=== PATIENT | female | born 1970 | race Caucasian/White ===

== ENCOUNTER 2020-10-07 11:54 | Outpatient (REF) | payer OTHER, SELFPAY ==
--- NOTE | 2020-10-07 12:08 | XR_ITS ---
EXAMINATION: XR ELBOW, RIGHT XR ELBOW, LEFT CLINICAL INFORMATION: Medial epicondylitis COMPARISON: None TECHNIQUE: 3 views of each elbow FINDINGS: Right elbow: No fracture or dislocation. Alignment is anatomic. Joint spaces are maintained. No elbow joint effusion. The soft tissues are unremarkable. Left elbow: No fracture or dislocation. Alignment is anatomic. Joint spaces are maintained. No elbow joint effusion. The soft tissues are unremarkable. XR/XR elbow RT 2V IMPRESSION: Normal appearance of both elbows.
--- NOTE | 2020-10-07 12:08 | XR_ITS ---
EXAMINATION: XR LUMBOSACRAL SPINE CLINICAL INFORMATION: Lower back pain COMPARISON: None TECHNIQUE: Three views of the lumbosacral spine. FINDINGS: No fracture or subluxation. Vertebral body height and alignment is maintained. Disc spaces are maintained. Mild facet arthropathy at the lower lumbar spine. The sacroiliac joints are symmetric. The visualized sacrum is intact. The visualized bowel gas pattern is unremarkable. XR/XR lumbar spine 2-3V IMPRESSION: Mild facet arthropathy at the lower lumbar spine. Otherwise normal appearance of the lumbar spine.
--- NOTE | 2020-10-07 12:08 | XR_ITS ---
EXAMINATION: XR ELBOW, RIGHT XR ELBOW, LEFT CLINICAL INFORMATION: Medial epicondylitis COMPARISON: None TECHNIQUE: 3 views of each elbow FINDINGS: Right elbow: No fracture or dislocation. Alignment is anatomic. Joint spaces are maintained. No elbow joint effusion. The soft tissues are unremarkable. Left elbow: No fracture or dislocation. Alignment is anatomic. Joint spaces are maintained. No elbow joint effusion. The soft tissues are unremarkable. XR/XR elbow LT 2V IMPRESSION: Normal appearance of both elbows.
[2020-10-07 12:40] LABS: Hematocrit 28.1 % (37-47); Red Cell Distribution Width 21.8 % (11.0-16.0)
[2020-10-07 12:42] LABS: Hemoglobin 7.4 g/dl (12.0-16.0); Mean Corpuscular HGB Conc 26.3 g/dl (31.0-35.0); Mean Corpuscular Hemoglobin 14.9 pg (27.0-33.0); Platelet Count 249 X10*3/uL (160-400); Red Blood Count 4.97 X10*6/uL (4.20-5.50)
[2020-10-07 12:56] LABS: Mean Corpuscular Volume 56.5 fL (80-98); PLT ABN DIST 1
[2020-10-07 13:15] LABS: Alanine Aminotransferase 13 U/L (0-31); Albumin Level 4.1 g/dL (3.5-5.0); Alkaline Phosphatase 90 U/L (39-117); Anion Gap 15 (12-20); Aspartate Amino Transferase 18 U/L (5-31); Bilirubin Total 0.6 mg/dL (0.0-1.0); Blood Urea Nitrogen 11 mg/dL (9-16); Calcium 8.9 mg/dL (8.4-10.2); Carbon Dioxide 23 mmol/L (22-29); Chloride 106 mmol/L (96-108); Cholesterol 169 mg/dL; Estimated Glomerular Filt Rate > 60; Glucose Fasting 126 mg/dL (60-99); HDL Cholesterol 49 mg/dL; LDL Cholesterol Calculated 103 mg/dl; Potassium 4.2 mmol/l (3.3-5.1); Sodium 140 mmol/L (135-145); Total Protein 7.3 g/dL (6.5-8.0); Triglycerides 87 mg/dL
[2020-10-07 13:36] LABS: TSH reflex Free T4 0.86 mIU/mL (0.32-4.0)
== END 2020-10-07 11:55 | disposition home or self-care (01) ==
LOC: HO.LAB 11:54
PROVIDERS: PCP Physician Assistant; Visit Provider Physician Assistant
DX: Z13.1 Encounter for screening for diabetes mellitus (principal); Z13.29 Encounter for screening for other suspected endocrine disorder; M77.01 Medial epicondylitis, right elbow; M54.5 Low back pain; I10 Essential (primary) hypertension
CPT/HCPCS: 36415; 72100; 73070; 80053; 80061; 84443; 85027; 85060

== ENCOUNTER 2020-10-20 11:36 | Outpatient (REF) | payer OTHER, SELFPAY ==
[2020-10-20 12:06] LABS: Immature Retic Fraction 13.1 % (3.0-15.9); Retic HGB Equivalent 15.1 pg (30.0-35.0); Reticulocyte Percent 1.2 % (0.5-1.8); Reticulocytes Absolute 0.059 X10*6/uL (0.026-0.095)
[2020-10-20 12:23] LABS: Iron 9 mcg/dL (30-160); Percent Iron Saturation 2 % (15-50); Total Iron Binding Capacity 475 mcg/dL (228-428); Unsaturated Iron Binding 466 ug/dL
[2020-10-20 12:48] LABS: Ferritin < 1 ng/mL (10-250)
== END 2020-10-20 11:37 | disposition home or self-care (01) ==
LOC: HO.LAB 11:36
PROVIDERS: PCP Physician Assistant; Visit Provider Physician Assistant
DX: D64.9 Anemia, unspecified (principal); D50.9 Iron deficiency anemia, unspecified
CPT/HCPCS: 36415; 82728; 83540; 85045

== ENCOUNTER → 2020-10-22 10:11 | Outpatient (BNVA) | payer OTHER, SELFPAY | PROVIDERS: PCP Physician Assistant; Visit Provider Physician Assistant | DX: M77.01 Medial epicondylitis, right elbow (principal); M77.02 Medial epicondylitis, left elbow | CPT/HCPCS: 99202 ==

== ENCOUNTER → 2020-11-08 13:39 | Outpatient (BNVA) | payer OTHER, SELFPAY | PROVIDERS: PCP Physician Assistant; Visit Provider Physician Assistant ==

== ENCOUNTER 2020-12-10 10:46 | Outpatient (REF) | payer OTHER, SELFPAY | END 2020-12-10 10:47 | disposition home or self-care (01) | LOC: HO.MDS 10:46 | PROVIDERS: PCP Physician Assistant; Visit Provider Internal Medicine Medical Oncology | DX: D50.9 Iron deficiency anemia, unspecified (principal) | CPT/HCPCS: 96365; J1439 ==

== ENCOUNTER 2020-12-17 11:31 | Outpatient (REF) | payer OTHER, SELFPAY | END 2020-12-17 11:32 | disposition home or self-care (01) | LOC: HO.MDS 11:31 | PROVIDERS: PCP Physician Assistant; Visit Provider Internal Medicine Medical Oncology | DX: D50.9 Iron deficiency anemia, unspecified (principal) | CPT/HCPCS: 96365; J1439 ==

== ENCOUNTER 2021-01-06 11:00 | Outpatient (RCR) | payer OTHER, SELFPAY ==
--- NOTE | 2020-10-21 09:59 | MHC.PT.EP ---
[facility] [place] Office [place] Office [place] Office [address] [phone] F: [phone] F: [phone] F: [phone] F: [phone] Physical Therapy Plan of Care Date of Evaluation: 10/20/20 Date of Surgery: Diagnosis: thoracic and lumbar pain Assessment: Patient is a 50 year old R handed female who presents with s/s consistent with thoracic and lumbar pain. 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 Patient past medical history is fairly non-contributory. Current impairments include pain, ROM, strength, safety, independence, activity tolerance and functional mobility. Functional limitations include decreased ability to walk, stand, transfer, negotiate stairs, and perform weight bearing activities.. Patient is motivated with good rehab potential. Skilled PT will address impairments and functional limitations in order to achieve goals. Frequency and Duration: The patient will be seen 2x/week for 5 weeks Short Term Goals: I with HEP - 2 weeks Stable innom - 3 weeks demo proper squat and lift mechanics without cues - 3 weeks improved postural awareness - 3 weeks Detention Goals: Pain free sleep, walking >20 minutes - 5 weeks Hip strength 4/5 grossly - 5 weeks Return to PLOF - 5 weeks Treatment Plan: Modalities to reduce pain, spasms and effusion. Manual therapy to restore motion and function. Therapeutic exercise to improve strength and flexibility. Neuromuscular re-education for posture and balance. Therapeutic activities to return to functional activities of daily living. Electronically signed by: Marek Yeung PT Please sign and return to therapist. Thank you for your referral.
--- NOTE | 2021-01-24 13:37 | MHC.PT.DC ---
[facility] [place] Office [place] Office [place] Office [address] [phone] F: [phone] F: [phone] F: [phone] F: [phone] Physical Therapy Discharge Report Diagnosis: thoracic and lumbar pain Date of Surgery: Date of Evaluation: 10/20/20 Date of Discharge: 01/17/21 Treatments to Date: 18 Cancellations to Date: 0 No Shows to Date: 0 Discharge Status: Improved Function Independent with HEP Discharge Summary: Pt progressed well over the course of skilled PT making progress on impairments and functional limitations resulting in an improved quality of life. Pt is I with HEP and appropriate to d/c to HEP at this time. Electronically signed by: Marek Yeung, PT Please sign and return to therapist. Thank you for your referral.
== END 2021-01-29 10:52 | disposition home or self-care (01) ==
LOC: HO.PTCHIC 11:00
PROVIDERS: PCP Physician Assistant; Visit Provider Physician Assistant
DX: M51.9 Unspecified thoracic, thoracolumbar and lumbosacral intervertebral disc disorder (principal)
CPT/HCPCS: 97014; 97110; 97140; 97161; 97530

== ENCOUNTER 2021-02-04 10:45 | Day surgery (SDC) | payer OTHER, SELFPAY ==
--- NOTE | 2021-02-02 11:02 | P.CONAN_ITS ---
HPI - Anesthesia Eval Consult details Narrative: 51yo F for Colonoscopy PMFSH Active Problems Active Problems: All Active Problems (Updated 12/02/20 @ 13:53 by Osman Delgado MD) Anemia (Acute) Bilateral medial epicondylitis of elbow joint (Acute) Iron deficiency (Acute) Low hematocrit (Acute) Low hemoglobin (Acute) Constipation (Acute) Colon cancer screening (Acute) Lumbar spine pain (Acute) Screening for hypothyroidism (Acute) Screening for diabetes mellitus (DM) (Acute) Insomnia (Acute) BRENTON (generalized anxiety disorder) (Acute) Medial epicondylitis of right elbow (Acute) Annual physical exam (Acute) Past Medical History Medical History (Updated 02/02/21 @ 11:03 by Mehreen Gibbons) Anemia Constipation BRENTON (generalized anxiety disorder) Insomnia Iron deficiency Lumbar spine pain Family History Family History (Updated 12/02/20 @ 13:11 by Beverley Stoll) Mother Diabetes Fibromyoma Anemia Depression Hypertension Asthma Father No problems noted. Mother No problems noted. Mother No problems noted. 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
[2021-02-04 06:25] VITALS: BMI 31.8
[2021-02-04 11:19] VITALS: BP 131/82; PULSE 73; RESP 16; TEMP 36.2; O2SAT 96; BMI 29.5
[2021-02-04] MEDS: Lactated Ringers 1,000 ML 100 ML IVCONT (12:30)
--- NOTE | 2021-02-04 12:45 | MHC.SHP ---
Pre-Procedural Eval Section B Chief Complaint: screening Details of Present Illness: screening Relevant Family History (Specify if Yes): No Relevant Social History: None Present Medications: see Short Stay Collaborative assessment Medical History: No relevant PMH History of Previous Operations: No relevant previous surgery Allergies: Allergies Allergy/AdvReac Type Severity Reaction Status Date / Time none Allergy Unknown Unknown Uncoded 10/06/20 17:03 Review of Systems Sugical H&P ROS: Negative: Constitution, Cardiovascular, Respiratory, Neurological, Psychiatric, Hem-Onc, Allergic/Immunologic, Gastrointestinal, Genitourinary, Musculoskeletal, Integumentary, Endocrine and Eyes/Ears/Nose/Throat Exam Surgical H&P Exam: Normal: HEENT, Normal: Heart, Normal: Lungs, Normal: Extremities, Normal: Abdomen, Normal: Skin and Normal: Neurological Plan Diagnosis/Plan: Unchanged I have reviewed the history and physical and performed a pertinent physical examination on my patient. No changes have occurred unless specified.
[2021-02-04 13:13] VITALS: BP 112/68; PULSE 68; RESP 18; TEMP 36.2; O2SAT 99
--- NOTE | 2021-02-04 13:15 | P.BOP_ITS ---
Brief Operative Note Date of Service: 02/04/21 Pre-op diagnosis: screening Post-op diagnosis: same Procedure: colonoscopy Surgeon: Víctor Soni Was an Glue Line Operator used for this Procedure?: No Estimated blood loss (mL): 2 Pathology: other (rectal biopsies) Condition: stable Disposition: PACU
[2021-02-04 13:28] VITALS: BP 125/69; PULSE 58; RESP 18; O2SAT 98
--- NOTE | 2021-02-04 13:35 | OP_ITS ---
SURGEON: Víctor Soni MD INDICATIONS: Colon cancer screening. PREOPERATIVE DIAGNOSIS: POSTOPERATIVE DIAGNOSIS: PROCEDURE PERFORMED: Colonoscopy to the terminal ileum with biopsy. ESTIMATED BLOOD LOSS: COMPLICATIONS: ANESTHESIA: ASSISTANTS: SPECIMENS: MEDICATIONS: Monitored anesthesia care. DESCRIPTION OF PROCEDURE: History and physical performed. The risks and benefits of the procedure were explained to the patient. Informed consent was obtained. The patient was placed in the left lateral decubitus position. A digital rectal exam was performed and was found to be normal. The Olympus pediatric video colonoscope was introduced into the rectum and advanced to the cecum without difficulty. The cecum was identified by transillumination, palpation, and identification of ileocecal valve. Examination was performed and the scope was removed. She tolerated the procedure well and was taken to recovery area in stable condition. FINDINGS: The terminal ileum was normal. The visualized colonic mucosa was normal. There appeared to be some mild nodularity mainly in the rectum and also in the right colon, possibly consistent with hyperplastic tissue or nodular lymphoid hyperplasia. No polyps were identified. Retroflexed examination was normal. Biopsies were obtained from the rectum. IMPRESSION: Normal colonoscopy. RECOMMENDATIONS: 1. Follow up the biopsy results. 2. Repeat colonoscopy is recommended in 10 years for average risk individuals. MD JENIFER Valerio/MARILEE / [id number]
== END 2021-02-04 14:05 | disposition home or self-care (01) ==
PROVIDERS: PCP Physician Assistant; Visit Provider Internal Medicine Gastroenterology
PROC: 0DJD8ZZ Inspection of Lower Intestinal Tract, Via Natural or Artificial Opening Endoscopic (ICD-10-PCS; CPT 45378; principal; 2021-02-04 11:50)
DX: Z12.11 Encounter for screening for malignant neoplasm of colon (principal); K62.89 Other specified diseases of anus and rectum; K59.00 Constipation, unspecified; G47.00 Insomnia, unspecified; Z79.899 Other long term (current) drug therapy; Z87.442 Personal history of urinary calculi; Z87.891 Personal history of nicotine dependence
CPT/HCPCS: 45380; 88305

== ENCOUNTER 2021-05-12 11:04 | Outpatient (REF) | payer OTHER, SELFPAY ==
[2021-05-12 11:52] LABS: Hematocrit 41.4 % (37-47); Hemoglobin 13.7 g/dl (12.0-16.0); Mean Corpuscular HGB Conc 33.1 g/dl (31.0-35.0); Mean Corpuscular Hemoglobin 27.6 pg (27.0-33.0); Mean Corpuscular Volume 83.5 fL (80-98); Mean Platelet Volume 10.8 fL (9.4-12.3); Platelet Count 185 X10*3/uL (160-400); Red Blood Count 4.96 X10*6/uL (4.20-5.50); Red Cell Distribution Width 13.2 % (11.0-16.0); White Blood Count 6.8 X10*3/uL (4.8-10.8)
[2021-05-12 12:20] LABS: Estimated Average Glucose 114 mg/dL; Hemoglobin A1c % 5.6 %
[2021-05-12 12:26] LABS: Alanine Aminotransferase 16 U/L (0-31); Albumin Level 4.1 g/dL (3.5-5.0); Alkaline Phosphatase 76 U/L (39-117); Anion Gap 14 (12-20); Aspartate Amino Transferase 18 U/L (5-31); Bilirubin Total 0.5 mg/dL (0.0-1.0); Blood Urea Nitrogen 9 mg/dL (9-16); Calcium 9.6 mg/dL (8.4-10.2); Carbon Dioxide 26 mmol/L (22-29); Chloride 106 mmol/L (96-108); Estimated Glomerular Filt Rate > 60; Glucose Fasting 97 mg/dL (60-99); Iron 58 mcg/dL (30-160); Percent Iron Saturation 20 % (15-50); Potassium 4.5 mmol/L (3.3-5.1); Sodium 141 mmol/L (135-145); Total Iron Binding Capacity 286 mcg/dL (228-428); Total Protein 6.7 g/dL (6.5-8.0); Unsaturated Iron Binding 228 ug/dL
[2021-05-12 12:33] LABS: TSH reflex Free T4 0.89 uIU/mL (0.32-4.0)
== END 2021-05-12 11:05 | disposition home or self-care (01) ==
LOC: HO.LAB 11:04
PROVIDERS: PCP Physician Assistant; Visit Provider Physician Assistant
DX: Z13.1 Encounter for screening for diabetes mellitus (principal); F33.1 Major depressive disorder, recurrent, moderate; D50.9 Iron deficiency anemia, unspecified; I10 Essential (primary) hypertension
CPT/HCPCS: 36415; 80053; 83036; 83540; 84443; 85027

== ENCOUNTER 2021-09-16 09:34 | Day surgery (SDC) | payer OTHER, SELFPAY ==
[2021-09-08 10:48] VITALS: BMI 30.8
--- NOTE | 2021-09-16 10:13 | HO.ANESPROP2 ---
[facility] Active Problems Active Problems: All Active Problems (Updated 09/08/21 @ 10:48 by Prabha Brooks RN) Annual physical exam (Acute) Medial epicondylitis of right elbow (Acute) Screening for diabetes mellitus (DM) (Acute) Screening for hypothyroidism (Acute) Colon cancer screening (Acute) Low hemoglobin (Acute) Low hematocrit (Acute) Bilateral medial epicondylitis of elbow joint (Acute) MDD (major depressive disorder), recurrent episode, moderate (Acute) Excess skin of abdominal wall (Acute) Abnormal EKG (Acute) Chest pain (Acute) Chronic low back pain with sciatica (Acute) Bloating (Acute) GERD (gastroesophageal reflux disease) (Acute) Insomnia (Acute) Constipation (Acute) Iron deficiency (Acute) Anemia (Acute) Past Medical History Medical History (Updated 09/08/21 @ 10:48 by Prabha Brooks RN) Anemia Constipation COVID-19 vaccine series completed BRENTON (generalized anxiety disorder) Insomnia Iron deficiency Lumbar spine pain Sleep apnea Family History Family History Mother Diabetes Fibromyoma Anemia Depression Hypertension Asthma Father No problems noted. Sister Diabetes Fibromyoma Anemia Depression Hypertension Asthma Brother Pneumonia Diabetes Daughter Lupus Family history of problems with anesthesia: No Surgical History Surgical History H/O colonoscopy History of extraction of renal calculus History of Problems with Anesthesia: No Social History Social History Household Members: None Housing: House Alcohol intake: current Alcohol intake frequency: holidays/special occasions only Patient Tobacco Use Status: Former Tobacco user Quit Date: 2000 Tobacco use type: Cigarette e-Cigarette/Vaping Use: Never Used Second Hand Smoke Exposure: No Use of substances other than those prescribed or required for medical reasons: No Have you been hit, kicked, punched, or otherwise hurt by someone within the past year? 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 Cognitive needs: No Hearing needs: No Vision needs: No Meds Allergies Allergy/AdvReac Type Severity Reaction Status Date / Time No Known Allergies Allergy Verified 09/08/21 10:42 Home Medications Medication Instructions Recorded Confirmed Last Taken Type buspirone 5 mg tablet 5 mg PO BID 08/02/21 08/02/21 Unknown History escitalopram oxalate 10 mg tablet 10 mg PO DAILY 08/02/21 08/02/21 Unknown History Exam Exam Date and Time: September 16, 2021 1013 Height,Weight and Vital Signs: Height 5 ft 3 in Weight 78.925 kg Airway Mallampati Class: II TM Dist: >3cm Neck ROM: Full Heart: RRR Lungs: CTA Assessment and Plan Final Anesthetic Review Family History of Problems with Anesthesia: No History of Problems with Anesthesia: No NPO: Yes ASA Class: II Final Preanesthetic Review: No Changes in Pt Med Stat, Consent Obtained/Reviewed and Anes Risks/Benef Reviewed Patient Risk: Low Procedure Risk: Low Anesthetic Plan Anesthetic Plan: MAC: Disposition: Standard PACU
[2021-09-16 10:28] VITALS: BP 136/88; PULSE 69; RESP 16; TEMP 36.8; O2SAT 94; BMI 30.1
[2021-09-16] MEDS: Lactated Ringers 1,000 ML 50 ML IVCONT (10:39)
--- NOTE | 2021-09-16 10:45 | MHC.SHP ---
Pre-Procedural Eval Section A Date of Service: 09/16/21 The patient is an INPATIENT: No Changes since office visit: No Cold of Flu in the past 2 weeks, No New Medical Problems, No Changes in Medication and No Patient answered all questions The History & Physical has been completed within 30 days and I have reviewed it.: Yes Section B Chief Complaint: reflux,chest pain Allergies: Allergies Allergy/AdvReac Type Severity Reaction Status Date / Time No Known Allergies Allergy Verified 09/08/21 10:42 Plan I have reviewed the history and physical and performed a pertinent physical examination on my patient. No changes have occurred unless specified.
--- NOTE | 2021-09-16 11:13 | P.BOP_ITS ---
Brief Operative Note Date of Service: 09/16/21 Pre-op diagnosis: gerd Post-op diagnosis: same Procedure: egd Surgeon: Víctor Soni Anesthesia: MAC Was an Hospital Chief Executive Officer used for this Procedure?: No Estimated blood loss (mL): 2 Pathology: other (bxs antrum, egj) Disposition: PACU
[2021-09-16 11:14] VITALS: BP 104/67; PULSE 72; RESP 14; TEMP 36.4; O2SAT 96
[2021-09-16 11:29] VITALS: BP 116/72; PULSE 67; RESP 16; O2SAT 99
[2021-09-16 11:45] VITALS: BP 120/81; PULSE 75; RESP 20; TEMP 36.7; O2SAT 96
--- NOTE | 2021-09-16 11:53 | HO.POSTANES ---
Post Anesthesia Evaluation Post Anesthesia Evaluation Vital Signs: Vital Signs Temp Pulse Resp BP Pulse Ox 09/16/21 11:45 98.0 F 75 20 120/81 96 09/16/21 11:29 67 16 116/72 99 09/16/21 11:14 97.5 F 72 14 104/67 96 09/16/21 10:28 98.2 F 69 16 136/88 94 Anesthesia: Monitored Mental Status: Awake Pain Control: Satisfactory Nausea/Vomiting: None Hydration: Adequate Anesthesia-Related Issues: No Anes. Related Issues
--- NOTE | 2021-09-16 11:57 | OP_ITS ---
SURGEON: Víctor Soni MD INDICATIONS: Gastroesophageal reflux disease and chest pain. PREOPERATIVE DIAGNOSIS: POSTOPERATIVE DIAGNOSIS: PROCEDURE PERFORMED: Upper endoscopy with biopsy. ESTIMATED BLOOD LOSS: COMPLICATIONS: ANESTHESIA: ASSISTANTS: SPECIMENS: MEDICATIONS: Monitored anesthesia care. DESCRIPTION OF PROCEDURE: History and physical were performed. The risks and benefits of the procedure were explained to the patient. Informed consent was obtained. The patient was placed in the left lateral decubitus position. The Olympus video gastroscope was introduced into the esophagus, stomach, and duodenum. Examination was performed. The scope was removed. She was returned to recovery area in stable condition. FINDINGS: Esophagus: The esophagus was normal. There was no esophagitis. Biopsies were obtained from the EG junction. Stomach: The stomach showed no evidence of masses, ulcers, or polyps. Antral biopsies were obtained to evaluate for H pylori. Duodenum: The bulb and second portion were normal. IMPRESSION: Normal upper endoscopy, gastroesophageal reflux disease. RECOMMENDATIONS: 1. Follow up the biopsy results. 2. Continue present medication. MD JENIFER Valerio/MODL / [id number]
== END 2021-09-16 12:37 | disposition home or self-care (01) ==
PROVIDERS: PCP Physician Assistant; Visit Provider Internal Medicine Gastroenterology
PROC: 0DJ08ZZ Inspection of Upper Intestinal Tract, Via Natural or Artificial Opening Endoscopic (ICD-10-PCS; CPT 43235; principal; 2021-09-16 10:50)
DX: K21.9 Gastro-esophageal reflux disease without esophagitis (principal); R07.9 Chest pain, unspecified; E78.00 Pure hypercholesterolemia, unspecified; Z79.899 Other long term (current) drug therapy; Z79.82 Long term (current) use of aspirin; Z87.442 Personal history of urinary calculi; Z87.891 Personal history of nicotine dependence
CPT/HCPCS: 43239; 88305; 88342

== ENCOUNTER 2021-11-03 11:00 | Outpatient (RCR) | payer OTHER, SELFPAY ==
--- NOTE | 2021-11-17 12:56 | MHC.PT.DC ---
[facility] [place] Office [place] Office [place] Office [address] [phone] F: [phone] F: [phone] F: [phone] F: [phone] Physical Therapy Discharge Report Diagnosis: This is a 51 yo male presenting to skilled PT with a script for thoracic/lumbosacral intervetebral disc disorder. Date of Surgery: Date of Evaluation: 10/19/21 Date of Discharge: 11/17/21 Treatments to Date: 2 Cancellations to Date: 0 No Shows to Date: 0 Discharge Status: Patient Elected to Stop Visit Non-compliance Discharge Summary: Brooklynn no showed to 3 appointments. We called her and attempted to leave her multiple messages however patient's voicemail was full. DC due to visit noncompliance and multiple no shows Electronically signed by: Vicki Jack PT Please sign and return to therapist. Thank you for your referral.
== END 2021-11-17 12:56 | disposition home or self-care (01) ==
LOC: HO.PTCHIC 11:00
PROVIDERS: PCP Physician Assistant; Visit Provider Physician Assistant
DX: M51.9 Unspecified thoracic, thoracolumbar and lumbosacral intervertebral disc disorder (principal)
CPT/HCPCS: 97014; 97110; 97140; 97162

== ENCOUNTER 2022-01-25 18:14 | Outpatient (REF) | payer OTHER, SELFPAY | END 2022-01-25 18:15 | disposition home or self-care (01) | LOC: HO.LNP 18:14 | PROVIDERS: Visit Provider Physician Assistant | DX: N30.00 Acute cystitis without hematuria (principal) | CPT/HCPCS: 87086 ==

== ENCOUNTER 2022-03-16 11:01 | Outpatient (REF) | payer OTHER, SELFPAY ==
--- NOTE | ~2022-03-16 | US_ITS ---
EXAMINATION: US ABDOMEN LIMITED CLINICAL INFORMATION: Right upper quadrant pain. COMPARISON: None TECHNIQUE: Real-time imaging of the right upper quadrant abdominal viscera. FINDINGS: PANCREAS: Normal. LIVER: The liver is normal in size. The liver contour is normal. The liver echotexture is increased. No focal hepatic lesion. There is no intrahepatic biliary duct dilatation seen. GALLBLADDER: Normal. The gallbladder is physiologically distended without evidence of stones, sludge, polyps, wall thickening or pericholecystic fluid. COMMON BILE DUCT: Normal in caliber measuring 0.46 cm in diameter. RIGHT KIDNEY: Normal. No hydronephrosis. No renal calculi or focal parenchymal lesions. The kidney measures 9.5 cm in maximum dimension. FREE FLUID: None. US/US abdomen limited IMPRESSION: Echogenic liver otherwise unremarkable exam.
== END 2022-03-16 11:02 | disposition home or self-care (01) ==
LOC: HO.HMGCX 11:01
PROVIDERS: Visit Provider Physician Assistant
DX: R10.11 Right upper quadrant pain (principal)
CPT/HCPCS: 76705

== ENCOUNTER 2022-04-12 08:52 | Outpatient (REF) | payer OTHER, SELFPAY ==
[2022-04-12 09:28] LABS: Hematocrit 43.7 % (37.0-47.0); Hemoglobin 14.1 g/dl (12.0-16.0); Mean Corpuscular HGB Conc 32.3 g/dl (31.0-35.0); Mean Corpuscular Hemoglobin 26.2 pg (27.0-33.0); Mean Corpuscular Volume 81.2 fL (80.0-98.0); Mean Platelet Volume 10.5 fL (9.4-12.3); Platelet Count 208 X10*3/uL (160-400); Red Blood Count 5.38 X10*6/uL (4.20-5.50); Red Cell Distribution Width 13.2 % (11.0-16.0); White Blood Count 7.2 X10*3/uL (4.8-10.8)
[2022-04-12 13:59] LABS: Alanine Aminotransferase 22 U/L (0-31); Albumin Level 4.2 g/dL (3.5-5.0); Alkaline Phosphatase 79 U/L (39-117); Anion Gap 14 (12-20); Aspartate Amino Transferase 21 U/L (5-31); Bilirubin Total 0.4 mg/dL (0.0-1.0); Blood Urea Nitrogen 17 mg/dL (9-16); Calcium 9.3 mg/dL (8.4-10.2); Carbon Dioxide 25 mmol/L (22-29); Chloride 107 mmol/L (96-108); Estimated Average Glucose 126 mg/dL; Estimated Glomerular Filt Rate > 60; Glucose Fasting 117 mg/dL (60-99); Iron 45 mcg/dL (30-160); Percent Iron Saturation 14 % (15-50); Potassium 4.1 mmol/L (3.3-5.1); Sodium 142 mmol/L (135-145); Total Iron Binding Capacity 322 mcg/dL (228-428); Total Protein 7.5 g/dL (6.5-8.0); Unsaturated Iron Binding 277 ug/dL
[2022-04-12 14:05] LABS: TSH reflex Free T4 1.38 uIU/mL (0.32-4.0)
== END 2022-04-12 08:53 | disposition home or self-care (01) ==
LOC: HO.LAB 08:52
PROVIDERS: PCP Physician Assistant; Visit Provider Physician Assistant
DX: Z13.29 Encounter for screening for other suspected endocrine disorder (principal); E61.1 Iron deficiency
CPT/HCPCS: 36415; 80053; 83036; 83540; 84443; 85027

== ENCOUNTER → 2022-05-04 15:32 | Outpatient (BNVA) | payer OTHER, SELFPAY | PROVIDERS: PCP Physician Assistant; Visit Provider Surgery | DX: Z13.89 Encounter for screening for other disorder (principal) | CPT/HCPCS: 99202 ==

== ENCOUNTER 2022-05-04 16:11 | Outpatient (REF) | payer OTHER, SELFPAY ==
[2022-05-04 17:33] LABS: Blood Urea Nitrogen 11 mg/dL (9-16); Estimated Glomerular Filt Rate > 60
== END 2022-05-04 16:12 | disposition home or self-care (01) ==
LOC: HO.LAB 16:11
PROVIDERS: Visit Provider Surgery
DX: R10.11 Right upper quadrant pain (principal); G89.29 Other chronic pain; Z79.899 Other long term (current) drug therapy
CPT/HCPCS: 36415; 82565; 84520; 99202

== ENCOUNTER 2022-05-29 12:13 | Outpatient (REF) | payer OTHER, SELFPAY ==
--- NOTE | ~2022-05-29 | CT_ITS ---
EXAMINATION: CT ABDOMEN AND PELVIS WITH CONTRAST CLINICAL INFORMATION: Upper abdominal pain. COMPARISON: None TECHNIQUE: Multidetector volumetric images were obtained from the superior aspect of the liver through the pubic symphysis following administration 85 mL of Omnipaque 350 intravenous contrast. Sagittal and coronal reformatted images were obtained on the technologist's workstation. Oral contrast: No This CT examination was performed using dose optimization techniques as appropriate, variously including the following: *Automated exposure control *Adjustment of mA and/or kV according to patient size (this includes techniques or standardized protocols for targeted exams where dose is matched to indication/reason for exam; i.e. extremities or head) *Use of iterative reconstruction technique DLP: 559 mGy-cm FINDINGS: LUNG BASES: There is dependent bibasilar atelectasis. The heart size is normal. LIVER, GALLBLADDER, AND BILIARY TREE: The liver is normal in size, shape, and attenuation. No focal hepatic lesion or biliary ductal dilatation is present. The gallbladder is unremarkable with no evidence of radiopaque gallstones, gallbladder wall thickening, or obvious pericholecystic inflammatory changes. PANCREAS: Unremarkable. SPLEEN: Unremarkable. ADRENAL GLANDS: Unremarkable. KIDNEYS AND URETERS: The kidneys are normal in size, shape, and attenuation. No hydronephrosis, hydroureter, or calculi seen. No perinephric stranding. There is a nonenhancing 9 mm cyst upper pole right kidney. BLADDER: Unremarkable. GASTROINTESTINAL TRACT: There is scattered stool and gas seen throughout the colon without significant distention. The small-bowel loops are normal caliber. There are surgical sutures along the posterior wall of cecum likely from appendectomy. ABDOMINAL WALL: A small umbilical hernia containing fat is noted. LYMPH NODES: Normal. VASCULAR: Unremarkable. PELVIC VISCERA: Unremarkable. OSSEOUS STRUCTURES: No aggressive lytic or sclerotic process seen. CT/CT abdomen pelvis w IV con IMPRESSION: No acute intra-abdominal process seen. Mild constipation. Small cyst upper pole right kidney. Right fundal calcified fibroid. Fleischner guidelines were followed.
[2022-05-29] MEDS: iohexoL 350 MG/ML 100 ML INFUS..BTL IV (15:07)
== END 2022-05-29 12:14 | disposition home or self-care (01) ==
LOC: HO.CT 12:13
PROVIDERS: Visit Provider Surgery
DX: R10.10 Upper abdominal pain, unspecified (principal); G89.29 Other chronic pain
CPT/HCPCS: 74177; Q9967

== ENCOUNTER → 2022-06-01 15:33 | Outpatient (BNVA) | payer OTHER, SELFPAY | PROVIDERS: PCP Physician Assistant; Visit Provider Surgery | DX: R10.10 Upper abdominal pain, unspecified (principal); G89.29 Other chronic pain | CPT/HCPCS: 99212 ==

== ENCOUNTER 2022-08-02 10:13 | Outpatient (REF) | payer OTHER, SELFPAY ==
[2022-08-02 10:49] LABS: Hematocrit 44.2 % (37.0-47.0); Hemoglobin 14.2 g/dl (12.0-16.0); Mean Corpuscular HGB Conc 32.1 g/dl (31.0-35.0); Mean Corpuscular Hemoglobin 25.4 pg (27.0-33.0); Mean Corpuscular Volume 79.2 fL (80.0-98.0); Mean Platelet Volume 10.7 fL (9.4-12.3); Platelet Count 214 X10*3/uL (160-400); Red Blood Count 5.58 X10*6/uL (4.20-5.50); Red Cell Distribution Width 13.4 % (11.0-16.0); White Blood Count 7.7 X10*3/uL (4.8-10.8)
[2022-08-02 11:21] LABS: Cholesterol 176 mg/dL; HDL Cholesterol 51 mg/dL; LDL Cholesterol Calculated 90 mg/dl; Triglycerides 179 mg/dL
[2022-08-02 11:24] LABS: Alanine Aminotransferase 29 U/L (0-31); Albumin Level 4.2 g/dL (3.5-5.0); Alkaline Phosphatase 106 U/L (39-117); Anion Gap 14 (12-20); Aspartate Amino Transferase 25 U/L (5-31); Bilirubin Total 0.7 mg/dL (0.0-1.0); Blood Urea Nitrogen 11 mg/dL (9-16); Calcium 9.4 mg/dL (8.4-10.2); Carbon Dioxide 25 mmol/L (22-29); Chloride 105 mmol/L (96-108); Estimated Glomerular Filt Rate > 60; Glucose Fasting 118 mg/dL (60-99); Iron 74 mcg/dL (30-160); Percent Iron Saturation 23 % (15-50); Potassium 3.9 mmol/L (3.3-5.1); Sodium 140 mmol/L (135-145); Total Iron Binding Capacity 315 mcg/dL (228-428); Total Protein 7.4 g/dL (6.5-8.0); Unsaturated Iron Binding 241 ug/dL
== END 2022-08-02 10:14 | disposition home or self-care (01) ==
LOC: HO.LAB 10:13
PROVIDERS: Absent Provider Physician Assistant; PCP Physician Assistant; Visit Provider Physician Assistant
DX: Z13.29 Encounter for screening for other suspected endocrine disorder (principal); D50.9 Iron deficiency anemia, unspecified; E78.5 Hyperlipidemia, unspecified
CPT/HCPCS: 36415; 80053; 80061; 83540; 84443; 85027

== ENCOUNTER → 2022-08-16 14:17 | Outpatient (BNVA) | payer OTHER, SELFPAY | PROVIDERS: PCP Physician Assistant; Visit Provider Orthopaedic Surgery | DX: M65.331 Trigger finger, right middle finger (principal) | CPT/HCPCS: 20550; 99202; J1100 ==

== ENCOUNTER 2022-12-20 11:19 | Outpatient (REF) | payer OTHER, SELFPAY ==
[2022-12-20 12:32] LABS: Anion Gap 10 (12-20); Blood Urea Nitrogen 10 mg/dL (9-16); Calcium 9.2 mg/dL (8.4-10.2); Carbon Dioxide 27 mmol/L (22-29); Chloride 108 mmol/L (96-108); Estimated Glomerular Filt Rate > 60; Glucose Random 105 mg/dL (60-115); Sodium 141 mmol/L (135-145)
== END 2022-12-20 11:20 | disposition home or self-care (01) ==
LOC: HO.LAB 11:19
PROVIDERS: PCP Physician Assistant; Visit Provider Internal Medicine
DX: R07.89 Other chest pain (principal)
CPT/HCPCS: 36415; 80048

== ENCOUNTER 2023-01-30 18:18 | Outpatient (REF) | payer OTHER, SELFPAY | END 2023-01-30 18:19 | disposition home or self-care (01) | LOC: HO.LNP 18:18 | PROVIDERS: Visit Provider Physician Assistant | DX: N30.00 Acute cystitis without hematuria (principal) | CPT/HCPCS: 87086 ==

== ENCOUNTER 2023-04-02 10:22 | Outpatient (REF) | payer OTHER, SELFPAY ==
--- NOTE | ~2023-04-02 | XR_ITS ---
EXAMINATION: XR LUMBOSACRAL SPINE CLINICAL INFORMATION: Low back pain COMPARISON: None available. TECHNIQUE: Three views of the lumbosacral spine. FINDINGS: There is normal lumbar lordosis. The vertebral heights, alignment and disc heights are normal. SI joints are symmetric and normal. No visible acute fracture, dislocation or lytic process seen. The paravertebral soft tissues are normal. XR/XR lumbar spine 2-3V IMPRESSION: Unremarkable lumbar spine exam.
[2023-04-02 10:47] LABS: Hematocrit 43.4 % (37.0-47.0); Mean Corpuscular HGB Conc 32.3 g/dl (31.0-35.0); Mean Corpuscular Hemoglobin 25.8 pg (27.0-33.0); Mean Corpuscular Volume 80.1 fL (80.0-98.0); Mean Platelet Volume 10.3 fL (9.4-12.3); Platelet Count 201 X10*3/uL (160-400); Red Blood Count 5.42 X10*6/uL (4.20-5.50); Red Cell Distribution Width 13.6 % (11.0-16.0); White Blood Count 6.9 X10*3/uL (4.8-10.8)
[2023-04-02 11:17] LABS: Alanine Aminotransferase 20 U/L (0-31); Alkaline Phosphatase 106 U/L (39-117); Anion Gap 11 (12-20); Aspartate Amino Transferase 20 U/L (5-31); Bilirubin Total 0.7 mg/dL (0.0-1.0); Blood Urea Nitrogen 7 mg/dL (9-16); Calcium 9.6 mg/dL (8.4-10.2); Carbon Dioxide 28 mmol/L (22-29); Chloride 108 mmol/L (96-108); Cholesterol 134 mg/dL; Estimated Glomerular Filt Rate > 60; Glucose Fasting 111 mg/dL (60-99); HDL Cholesterol 47 mg/dL; LDL Cholesterol Calculated 58 mg/dl; Potassium 3.9 mmol/L (3.3-5.1); Sodium 143 mmol/L (135-145); Total Protein 7.3 g/dL (6.5-8.0); Triglycerides 147 mg/dL
[2023-04-02 11:33] LABS: TSH reflex Free T4 1.05 uIU/mL (0.32-4.0)
== END 2023-04-02 10:23 | disposition home or self-care (01) ==
LOC: HO.LAB 10:22
PROVIDERS: PCP Physician Assistant; Visit Provider Physician Assistant
DX: M54.50 Low back pain, unspecified (principal); E78.2 Mixed hyperlipidemia; D50.9 Iron deficiency anemia, unspecified
CPT/HCPCS: 36415; 72100; 80053; 80061; 84443; 85027

== ENCOUNTER 2023-04-02 14:02 | Outpatient (AMB) | payer OTHER, SELFPAY ==
--- NOTE | 2023-04-02 14:09 | A.OFFPC_ITS ---
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 Allergies No Known Allergies Allergy (Verified 04/02/23 14:26) Medication List - Last Reconciled 04/02/23 by Mychal Maldonado PA-C atorvastatin 40 mg PO DAILY 90 days cholecalciferol (vitamin D3) 50 mcg PO DAILY 90 days hydroxyzine HCl 25 mg PO BEDTIME 90 days multivitamin (Daily Multi-Vitamin tablet) 1 tab PO DAILY 90 days pantoprazole 40 mg PO DAILY 90 days phentermine 37.5 mg PO DAILY 28 days sennosides (senna) 8.6 mg PO BEDTIME 30 days zolpidem (Ambien) 10 mg PO BEDTIME 10 days Tobacco use date assessed: 04/02/23 Dental Screening Dental Screen Date: 04/02/23 Did you have a dental visit in the last 12 months?: Yes Did you have a dental problem in the last 6 months where you did not have access to dental care?: No Was dental information given to patient?: Patient has dentist HPI weight check HPI Details Pateint is a 53-year-old female here today for routine follow-up. ? Patient's past medical history significant for major depressive disorder,, OCD, Anxiety, hyperlipidemia? iron deficiency anemia. .. Obesity:? Has been able to lose a significant amount of weight with the use phenterminey, she would like to continue the medication for at the next few months and thereafter continue lifestyle control of her weight CHRONIC MEDICAL CONDITIONS --> .. GERD:? Continues to have daily GERD symptoms.? Has tried omeprazole in the past though felt it was ineffective.? She reports pantoprazole 40 mg daily was with affective thus will continue this medication for now. .. Hyperlipidemia:? Continues on statin therapy without side effect. Most recent fasting lipid panel showing appropriate total cholesterol and LDL .. ? Iron deficiency anemia;? has seen Hematology whom has set patient up for IV i demetrius infusions. ? Most recent iron level normal. ? She reports she feels much better though still has times where she feels tired.? She wonders if her iron is low again. ? Of note she did get a colonoscopy and was started on mesalamine? temporary for proctitis though has discontinued this medication. ? Recently did have endoscopy showing evidence of mild reflux? Esophagitis. Major depressive disorder:? continues to follow psychiatrist and feels stable without mental health medications at this time.? Now has a foster child whom brings joint to her life. She does still use sleeping medications?? [facility] Medical History Anemia Chronic upper abdominal pain Constipation COVID-19 vaccine series completed BR[place] (generalized anxiety disorder) Insomnia Iron deficiency Lumbar spine pain Sleep apnea Surgical History H/O colonoscopy History of extraction of renal calculus Family History Mother Diabetes Fibromyoma Anemia Depression Hypertension Asthma CVA (cerebral vascular accident) Father No problems noted. 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 How often do you have a drink containing alcohol?: Never Total Score: 0 BRENTON-7 AMB Questionnaire BRENTON-7 Date BRENTON - 7 assessed: 01/30/23 Source: Developed by Drs. Drake Farris, Joyce Acuna, Valente Klein and colleagues, with an educational leo from [email or web address]. Review of Systems Const Denies headache(s) Eyes Denies loss of vision ENT Denies vertigo, Denies dizziness, Denies headache(s) and Denies sore throat Card Denies chest pain, Denies leg edema and Denies lightheadedness Resp Denies cough, Denies hemoptysis and Denies wheezing GI Denies abdominal pain, Denies melena, Denies constipation, Denies diarrhea and Denies vomiting Denies urinary frequency, Denies dysuria and Denies urinary urgency Musc Denies arthralgias, Denies joint swelling, Denies numbness and Denies tingling Neuro Denies Abnormal speech present, Denies behavioral changes, Denies vertigo, Denies dizziness, Denies headache(s), Denies loss of vision, Denies memory loss, Denies numbness and Denies tingling Psych Denies anxiety, Denies behavioral changes, Denies depression, Denies memory loss and Denies panic attacks Jos/Lymph Denies easy bleeding and Denies easy bruising Aller/Immun Denies wheezing Physical exam (Primary Care) Vital Signs: Last Vital Signs Pulse 77 04/02/23 14:10 BP 114/88 04/02/23 14:10 Pulse Ox 98 04/02/23 14:10 Oxygen Delivery Method Room Air 04/02/23 14:10 BMI result Body Mass Index 31.2 Tobacco/Smoking Status: Tobacco use Status Tobacco use date assessed 04/02/23 04/02/23 14:15 Patient Tobacco Use Status Former Tobacco user 04/02/23 14:15 Tobacco use type Cigarette 04/02/23 14:15 e-Cigarette/Vaping Use Never Used 04/02/23 14:15 Thrive Assessment: Date of Thrive Assessment Date Thrive assessed 01/30/23 04/02/23 14:15 Const General: healthy appearing, no acute distress, alert and awake Nutritional Appearance: well nourished Orientation/consciousness: oriented to person, oriented to place and oriented to time HENMT Ears: TM's normal bilaterally General nose exam: Normal nasal mucous membranes and turbinates present Eyes Conjunctivae: conjunctivae normal Sclerae: sclerae normal Pupils: Equal, round and reactive pupils present Neck Neck: Yes no lymphadenopathy and Yes no JVD Thyroid: Thyroid normal Carotids: no bruits Resp Effort & Inspection: normal respiratory effort and not tachypneic Auscultation: no crackles, no rales, no rhonchi and no wheezes Cardio Rate: regular rate Rhythm: regular rhythm Heart sounds: no murmurs and normal S1 and S2 GI Palpation (GI): Soft to palpation, nontender, no hepatomegaly and no splenomegaly Auscultation: normal bowel sounds Skin General skin exam: no rashes or lesions noted and dry skin Neuro General: oriented to person, oriented to place and oriented to time Cranial nerves: Yes Equal, round and reactive pupils present Speech: No Abnormal speech present Gait exam (Neuro): Normal gait present Motor exam (neuro): no tremor noted Extrem Right upper extremity: full ROM Left upper extremity: full ROM Right lower extremity: full ROM; no edema Left lower extremity: full ROM; no edema Psych Mental Status: mental status grossly normal Speech and movement: Normal speech and movement present Affect: normal affect Attitude: cooperative Thought process: Normal thought process present Assessment and Plan Assessment & Plan (1) Obese: Code(s): E66.9 - Obesity, unspecified Qualifiers: Obesity type: due to excess calories Obesity classification: adult class 1 (BMI 30 - 34.9) Serious obesity comorbidity presence: without serious comorbidity Body mass index: BMI 30.0-30.9 Qualified Code(s): E66.09 - Other obesity due to excess calories; Z68.30 - Body mass index [BMI] 30.0-30.9, adult Plan: Patient has been able to lose weight with the use of phentermine. Has lost 14 lb since last office visit. She is very happy about this though does report side effect of sugar craving at night. She will work on this with lifestyle modifications. (2) HLD (hyperlipidemia): Code(s): E78.5 - Hyperlipidemia, unspecified Qualifiers: Hyperlipidemia type: mixed hyperlipidemia Qualified Code(s): E78.2 - Mixed hyperlipidemia Plan: Patient's most recent lipid panel showing acceptable total cholesterol and LDL. Will continue on lifestyle vacations and statin therapy to control her cholesterol. Orders: Orders Lipid Panel 6 Months E78.2 - Mixed hyperlipidemia Comprehensive Mission. Panel Fast 6 Months E78.2 - Mixed hyperlipidemia Complete Blood Count no Diff 6 Months E78.2 - Mixed hyperlipidemia Medications: Refilled zolpidem (Ambien) 10 mg PO BEDTIME 10 days 10 tabs 0RF F51.01 - Primary insomnia atorvastatin 40 mg PO DAILY 90 days 90 tabs 2RF E78.5 - Hyperlipidemia, unspecified hydroxyzine HCl 25 mg PO BEDTIME 90 days 90 tabs 3RF sennosides (senna) 8.6 mg PO BEDTIME 30 days 30 tabs 2RF K59.04 - Chronic idiopathic constipation phentermine must administer 30 minutes before or 1-2 hours after breakfast 37.5 mg PO DAILY 28 days 28 caps 0RF E66.09 - Other obesity due to excess calories, Z68.30 - Body mass index [BMI] 30.0-30.9, adult Coding Level of Care Code Est Pt Level 4 (44507) Diagnoses Obese E66.09; Z68.30 Obesity type: due to excess calories Obesity classification: adult class 1 (BMI 30 - 34.9) Serious obesity comorbidity presence: without serious comorbidity Body mass index: BMI 30.0-30.9 HLD (hyperlipidemia) E78.2 Hyperlipidemia type: mixed hyperlipidemia
[2023-04-02 14:10] VITALS: BP 114/88; PULSE 77; O2SAT 98; BMI 31.2
== END 2023-04-02 14:47 | disposition home or self-care (01) ==
PROVIDERS: PCP Physician Assistant; Visit Provider Physician Assistant
DX: E66.09 Other obesity due to excess calories (principal); Z68.30 Body mass index [BMI] 30.0-30.9, adult; E78.2 Mixed hyperlipidemia
CPT/HCPCS: 99214

== ENCOUNTER 2023-06-07 09:34 | Outpatient (REF) | payer SELFPAY ==
[2023-06-07 11:30] LABS: Cholesterol 129 mg/dL (<200); HDL Cholesterol 52 mg/dL (>40); LDL Cholesterol Calculated 53 mg/dL (<100); Triglycerides 121 mg/dL (<150)
[2023-06-09 22:07] LABS: TS Negative Control Passed; TS Panel A 0; TS Panel B 0; TS Positive Control Passed; TSpotTB Negative (Negative)
== END 2023-06-07 09:35 | disposition home or self-care (01) ==
LOC: HO.LAB 09:34
PROVIDERS: PCP Physician Assistant; Visit Provider Physician Assistant
DX: Z11.1 Encounter for screening for respiratory tuberculosis (principal); E78.2 Mixed hyperlipidemia
CPT/HCPCS: 36415; 80061; 86481

== ENCOUNTER 2023-06-28 13:03 | Outpatient (REF) | payer SELFPAY ==
[2023-06-28 15:26] LABS: Appearance Urine Clear; Color Urine Yellow; Glucose Urine UA Negative (Negative); Leukocyte Esterase Urine Large (3+) (Negative); Nitrite Urine Negative (Negative); Specific Gravity - Urine <= 1.005 (1.005-1.025); UMIC TRIGGER UACC YES; Urine Blood Negative (Negative); Urine Ketones Negative (Negative); Urine Protein Negative (Neg-Trace)
[2023-06-28 15:32] LABS: Bacteria Urine 1+ (None Seen); Hyaline Casts Urine 0-2 /LPF (0-2); RBC Urine 0-2 /HPF (0-2); UACC Culture Trigger YES
== END 2023-06-28 13:04 | disposition home or self-care (01) ==
LOC: HO.LAB 13:03
PROVIDERS: PCP Physician Assistant; Visit Provider Physician Assistant
DX: R39.9 Unspecified symptoms and signs involving the genitourinary system (principal)
CPT/HCPCS: 81001; 87086

== ENCOUNTER 2023-09-07 14:11 | Outpatient (AMB) | payer SELFPAY ==
--- NOTE | 2023-09-07 14:16 | AM.OFFVISNUR ---
Intake Intake Visit Reasons: UA Allergies No Known Allergies Allergy (Verified 04/02/23 14:26) Nursing Note urinalysis negative Coding
== END 2023-09-07 14:25 | disposition home or self-care (01) ==
PROVIDERS: PCP Physician Assistant; Visit Provider Physician Assistant
DX: Z13.9 Encounter for screening, unspecified (principal); R30.0 Dysuria
CPT/HCPCS: 81002; 81003

== ENCOUNTER 2023-11-01 15:50 | Outpatient (AMB) | payer OTHER, SELFPAY ==
[2023-11-01 16:00] VITALS: BP 130/78; PULSE 75; O2SAT 97; BMI 31.8
--- NOTE | 2023-11-01 16:00 | MHC.PC.OV ---
Vital Signs 11/01/23 16:00 Height 5 ft 3 in Weight 179 lb 6 oz BMI 31.8 BP 130/78 Blood Pressure Location Lt brachial Position Sitting Pulse 75 Pulse Source Pulse Oximeter Pulse Oximetry (%) 97 Oxygen Delivery Method Room Air Intake Visit Reasons: PE Intake Note: Patient is here today for a physical. Roving Hauler Required: No Accompanied by: Self / Same As Patient Allergies No Known Allergies Allergy (Verified 11/01/23 16:17) Medication List - Last Reconciled 11/01/23 by Mychal Maldonado PA-C atorvastatin 40 mg PO DAILY 90 days cholecalciferol (vitamin D3) 50 mcg PO DAILY 90 days hydroxyzine HCl 25 mg PO BEDTIME 90 days multivitamin (Daily Multi-Vitamin tablet) 1 tab PO DAILY 90 days pantoprazole 40 mg PO DAILY 90 days phenazopyridine (Pyridium) 200 mg PO TID PRN phentermine 37.5 mg PO DAILY 28 days sennosides (Senna Laxative) 8.6 mg PO BEDTIME sumatriptan succinate take 1 tab at onset of headache; if no relief may repeat 1 tab after at least 2 hrs; max = 4 tabs/24 hr PO zolpidem (Ambien) 10 mg PO BEDTIME 10 days Tobacco use date assessed: 11/01/23 Dental Screening Dental Screen Date: 11/01/23 Did you have a dental visit in the last 12 months?: Yes Did you have a dental problem in the last 6 months where you did not have access to dental care?: No Was dental information given to patient?: Patient has dentist HPI PE HPI Details Pateint is a 53-year-old female here today for a routine annual physical. ? Patient's past medical history significant for major depressive disorder,, OCD, Anxiety, hyperlipidemia? iron deficiency anemia. .. Obesity:? Has gained a few lb since last office visit, has she would like to restart phentermine as she has had good weight loss results with this medication.. .. Lumbar spine pain: Has been having some right lower lumbar spine pain lately and has been using lidocaine patch over lower lumbar spine. She has been told in the past she has SI joint dysfunction and is interested in doing physical therapy again.. CHRONIC MEDICAL CONDITIONS --> .. GERD:? Continues to have daily GERD symptoms.?? She reports pantoprazole 40 mg daily was with affective thus will continue this medication for now. .. Hyperlipidemia:? Continues on statin therapy without side effect. Most recent fasting lipid panel showing appropriate total cholesterol and LDL .. ? Iron deficiency anemia; has a history of iron-deficiency anemia and in the past needed IV iron infusion. Since her CBC has normalized. Will continue to check CBC and iron studies. Major depressive disorder:? She has been more stressed as of late due to personal issues. She has been off of follow her psychiatric medication and is interested in getting back on SSRI therapy and talking to a mental health therapist again. ? COlONoScOPy: done 2020 normal--> Repeat 10 years. .. Mammo : gets done at [facility] - has not had insurance vaccines: , COVID, tetanus, shingles vaccines. Laboratory Tests 05/12/21 04/12/22 05/04/22 11:15 09:02 16:30 RBC 5.38 Creatinine 0.71 Fasting Glucose 97 Hemoglobin A1c % 5.6 Cholesterol LDL Cholesterol, C alc TSH 0.89 Leukocyte Esterase (Auto) 08/02/22 01/30/23 04/02/23 10:24 14:11 10:32 RBC 5.42 Creatinine 0.73 Fasting Glucose 118 H 111 H Hemoglobin A1c % Cholesterol 134 LDL Cholesterol, C alc 58 TSH 1.05 Leukocyte Esterase (Auto) 1 06/07/23 10:00 RBC Creatinine Fasting Glucose Hemoglobin A1c % Cholesterol 129 LDL Cholesterol, C alc 53 TSH Leukocyte Esterase (Auto) [facility] Medical History (Updated 11/06/23 @ 07:33 by Mychal Maldonado PA-C) Abnormal EKG Chronic upper abdominal pain COVID-19 vaccine series completed Sleep apnea Anemia Iron deficiency Constipation Lumbar spine pain Insomnia BRENTON (generalized anxiety disorder) Surgical History H/O colonoscopy History of extraction of renal calculus Family History Mother Diabetes Fibromyoma Anemia Depression Hypertension Asthma CVA (cerebral vascular accident) Father No problems noted. 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 1. Little interest or pleasure in doing things: not at all 2. Feeling down, depressed, or hopeless: not at all 3. Trouble falling or staying asleep, or sleeping too much: not at all 4. Feeling tired or having little energy: not at all 5. Poor appetite or overeating: not at all 6. Feeling bad about yourself - or that you are a failure or have let yourself or your family down: not at all 7. Trouble concentrating on things, such as reading the newspaper or watching television: not at all 8. Moving or speaking so slowly that other people could have noticed. Or the opposite - being so fidgety or restless that you have been moving around a lot more than usual: not at all 9. Thoughts that you would be better off or of hurting yourself in some way: not at all Total score: 0 Depression Screening Interpretation: Negative Depression Screening Done: Yes 39887 - PHQ-9 Billing: Yes Source: Developed by Drs. Drake Farris, Joyce Acuna, Valente Klein and colleagues, with an educational leo from [employer]. Thrive Questionnaire Date Thrive assessed: 11/01/23 I am a: Patient What is your living situation today?: I have a steady place to live Within the past 12 months, did the food you bought not last and you didn't have the money to get more?: Never true Within the past 12 months, did you worry whether your food would run out before you got money to buy more?: Never true Do you have trouble paying for medicines?: No Do you have trouble getting transportation to medical appointments?: No Do you have trouble paying your heating and electricity bill?: No Do you have trouble taking care of your child, family member or friend?: No Do you have trouble with day-to-day activities such as bathing, preparing meals, shopping, managing finances, etc.?: No Are you currently unemployed and looking for a job?: No Are you interested in more education?: No Please select the resources that you would like help with: None Currently or been in a relationship where the following occur: no concerns reported THRIVE Score: 0 AUDIT C Alcohol Use Questionnaire (AUDIT-C) 1. How often do you have a drink containing alcohol?: Never 3. How often do you have six or more drinks on one occasion?: Never Total Score: 0 BRENTON-7 AMB Questionnaire BRENTON-7 Date BRENTON - 7 assessed: 11/01/23 Feeling nervous, anxious, or on edge: 0 = Not at all Not being able to stop or control worryin = Not at all Worrying too much about different things: 0 = Not at all Trouble relaxin = Not at all Being so restless that it is hard to sit still: 0 = Not at all Becoming easily annoyed or irritable: 0 = Not at all Feeling afraid as if something awful might happen: 0 = Not at all Total BRENTON-7 score (0-4 normal; 5-9 mild; 10-14 moderate; 15-21 severe): 0 Source: Developed by Drs. Drake Farris, Joyce Acuna, Valente Klein and colleagues, with an educational leo from [employer]. BRENTON-7 Assessment Billing BRENTON-7 Assessment Tool: BRENTON-7 Assessment 28124 Review of Systems Const Denies body aches, Denies chills, Denies excessive sweating, Denies fatigue, Denies fever(s) and Denies headache(s) Eyes Denies blurry vision ENT Denies dysphagia, Denies vertigo, Denies dizziness, Denies headache(s), Denies hearing loss and Denies tinnitus Card Denies chest pain, Denies chest pain with activity, Denies syncope, Denies irregular heart rhythm and Denies dyspnea Resp Denies chest congestion, Denies cough, Denies hemoptysis, Denies dyspnea and Denies wheezing GI Denies abdominal pain, Denies melena, Denies hematochezia, Denies coffee ground emesis, Denies dysphagia, Denies diarrhea, Denies nausea and Denies vomiting Denies urinary frequency, Denies dysuria, Denies urinary hesitancy and Denies urinary urgency Musc Denies arthralgias, Denies limited range of motion, Denies muscle cramps and Denies muscle weakness Skin/Breast Denies rash and Denies skin ulcer Neuro Denies Abnormal speech present, Denies confusion, Denies vertigo, Denies dizziness, Denies syncope, Denies headache(s), Denies memory loss and Denies seizure-like activity Psych Denies anxiety, Denies confusion, Denies depression, Denies memory loss, Denies panic attacks and Denies paranoia Endo Denies excessive sweating, Denies fatigue, Denies flushing, Denies polydipsia and Denies polyuria Aller/Immun Denies wheezing Physical exam (Primary Care) Vital Signs: Last Vital Signs Pulse 75 11/01/23 16:00 BP 130/78 11/01/23 16:00 Pulse Ox 97 11/01/23 16:00 Oxygen Delivery Method Room Air 11/01/23 16:00 BMI result Body Mass Index 31.8 Tobacco/Smoking Status: Tobacco use Status Tobacco use date assessed 11/01/23 11/01/23 16:14 Patient Tobacco Use Status Former Tobacco user 11/01/23 16:23 Tobacco use type Cigarette 11/01/23 16:23 e-Cigarette/Vaping Use Never Used 11/01/23 16:23 PHQ-9: PHQ-9 Score PHQ-9: Total score 0 11/01/23 16:20 Depression Screening Interpretation: Negative Thrive Assessment: Date of Thrive Assessment Date Thrive assessed 11/01/23 11/01/23 16:14 Currently or been in a relationship where the following occur: no concerns reported Const General: cooperative, comfortable, no acute distress, alert and awake; No confusion Orientation/consciousness: oriented to person, oriented to place, patient oriented x3 and No confusion HENMT Head: Yes normocephalic Ears: external ears normal and TM's normal bilaterally Face and sinus: No sinus tenderness Mouth: Normal oral and palatal mucosa present and tongue normal Teeth and gingiva: dentition normal and gingiva normal Throat: Yes posterior oropharynx normal, Yes tonsils normal and Yes uvula midline Eyes Conjunctivae: conjunctivae normal Sclerae: sclerae normal Pupils: Equal, round and reactive pupils present EOM: EOMs intact bilaterally Direct Ophthalmoscopy: No no photophobia Neck Neck: Yes no lymphadenopathy, No tender and Yes no JVD Thyroid: Thyroid normal Carotids: no bruits Chest Chest palpation & inspection: no tenderness Resp Effort & Inspection: normal respiratory effort, no audible wheezes, not labored and no stridor Auscultation: no crackles, no rales, no rhonchi and no wheezes Cardio Jugular venous distension: no JVD Rate: regular rate, not bradycardic and not tachycardic Rhythm: regular rhythm Bruits: no carotid bruits Peripheral pulses: Peripheral pulses 2+ throughout GI Inspection: Yes normal to inspection, No abdominal wall ecchymosis and No visible herniation Palpation (GI): Soft to palpation, nontender, no guarding, not rigid and No hepatosplenomegaly present Auscultation: normoactive bowel sounds General: Yes no CVA tenderness Back/Spine/Pelvis Back: no CVA tenderness and No back tenderness Cervical Spine: cervical ROM normal Thoracic/Lumbar Spine: thoracic and lumbar spine normal to inspection, straight leg raise negative bilaterally, No thoraco-lumbar ROM limited and No lumbar spinal tenderness Skin Lesions: no lesions Rashes: no rashes Wounds: no wounds Neuro General: oriented to person, oriented to place, patient oriented x3, CN's II-XI intact bilaterally and No confusion Cranial nerves: Yes Equal, round and reactive pupils present and Yes Normal accommodation reflex present Cognition (Neuro): normal cognition Speech: No Abnormal speech present Gait exam (Neuro): Normal gait present Motor exam (neuro): 5/5 motor strength present throughout Extrem Right upper extremity: full ROM; no cyanosis Left upper extremity: full ROM; no cyanosis Right lower extremity: no edema Left lower extremity: no edema Psych Appearance: grossly normal Mental Status: mental status grossly normal Affect: normal affect Attitude: cooperative Thought process: Normal thought process present Assessment and Plan Assessment & Plan (1) Annual physical exam: Code(s): Z00.00 - Encounter for general adult medical examination without abnormal findings (2) Obese: Code(s): E66.9 - Obesity, unspecified Qualifiers: Body mass index: BMI 30.0-30.9 Obesity classification: adult class 1 (BMI 30 - 34.9) Obesity type: due to excess calories Serious obesity comorbidity presence: without serious comorbidity Qualified Code(s): E66.09 - Other obesity due to excess calories; Z68.30 - Body mass index [BMI] 30.0-30.9, adult Plan: Patient's BMI remains above 30. She is very motivated to lose weight. She reports she has changed her portions and has been more physically active though has been unable to lose weight. Has been on phentermine in the past with excellent results with weight loss. She is interested in restarting phentermine for short time to help kick start weight loss again. (3) HLD (hyperlipidemia): Code(s): E78.5 - Hyperlipidemia, unspecified Qualifiers: Hyperlipidemia type: mixed hyperlipidemia Qualified Code(s): E78.2 - Mixed hyperlipidemia Plan: Patient continues on the use of moderate dose statin therapy. Most recent lipid panel showing acceptable readings. Goal LDL to be below 130 (4) MDD (major depressive disorder), recurrent episode, moderate: Code(s): F33.1 - Major depressive disorder, recurrent, moderate Plan: Patient's depression has been stable without medication at this time. She denies having to use hydroxyzine for sleep. (5) SI (sacroiliac) joint dysfunction: Code(s): M53.3 - Sacrococcygeal disorders, not elsewhere classified Plan: Reports having some issues with her SI joint again. She is interested in doing chiropractic or physical therapy though will hold off for an order for now. (6) Iron deficiency: Code(s): E61.1 - Iron deficiency Plan: Has a history of iron-deficiency anemia. In the past needed IV infusion of iron. Had resolved in the past though will continue following CBC and iron studies. Orders: Orders Lipid Panel 11/01/23 E78.2 - Mixed hyperlipidemia Complete Blood Count no Diff 11/01/23 D64.9 - Anemia, unspecified Comprehensive [place]. Panel Fast 11/01/23 E78.2 - Mixed hyperlipidemia IRON PROFILE 11/01/23 D50.9 - Iron deficiency anemia, unspecified, D64.9 - Anemia, unspecified Referrals Counseling Referral F33.1 - Major depressive disorder, recurrent, moderate Medications: New sertraline 50 mg PO DAILY 30 days 30 tabs 3RF F33.1 - Major depressive disorder, recurrent, moderate Refilled phentermine must administer 30 minutes before or 1-2 hours after breakfast 37.5 mg PO DAILY 28 days 28 caps 0RF E66.09 - Other obesity due to excess calories, Z68.30 - Body mass index [BMI] 30.0-30.9, adult Coding Level of Care Code Est Pt Prev Care 40-64y(63541) Diagnoses Annual physical exam Z00.00 Class 1 obesity due to excess calories without serious comorbidity with body mass index (BMI) of 30.0 to 30.9 in adult E66.09; Z68.30 Body mass index: BMI 30.0-30.9 Obesity classification: adult class 1 (BMI 30 - 34.9) Obesity type: due to excess calories Serious obesity comorbidity presence: without serious comorbidity Mixed hyperlipidemia E78.2 Hyperlipidemia type: mixed hyperlipidemia MDD (major depressive disorder), recurrent episode, moderate F33.1 SI (sacroiliac) joint dysfunction M53.3 Iron deficiency E61.1 Additional Codes BRENTON-7 Assessment Billing - BRENTON-7 Assessment Tool: BRENTON-7 Assessment 36642 ([id number])
== END 2023-11-01 16:47 | disposition home or self-care (01) ==
PROVIDERS: PCP Physician Assistant; Visit Provider Physician Assistant
DX: Z00.00 Encounter for general adult medical examination without abnormal findings (principal); F33.1 Major depressive disorder, recurrent, moderate; E66.09 Other obesity due to excess calories; Z68.30 Body mass index [BMI] 30.0-30.9, adult; E78.2 Mixed hyperlipidemia; M53.3 Sacrococcygeal disorders, not elsewhere classified; E61.1 Iron deficiency
CPT/HCPCS: 99396

== ENCOUNTER → 2024-05-08 11:57 | Outpatient (RCR) | payer OTHER, SELFPAY ==
[2020-12-02 13:01] VITALS: BP 121/66; PULSE 76; RESP 12; TEMP 36.9; O2SAT 96; BMI 31.4
--- NOTE | 2020-12-02 13:36 | P.CNHO_ITS ---
Subjective - Subjective Patient: new to practice Consult date: 12/02/20 Requesting Physician: Chad Maldonado. Primary Care Provider: Mychal Maldonado PA-C Medical Summary: DIAGNOSIS: Anemia. HPI - Consult Narrative Reason for consult: Consult for anemia. Narrative: Brooklynn Barnett is a pleasant 50 year old lady, who has been noted to be anemic. Review of labs in the computer revealed the following hemoglobin/hematocrit: 10/07/20: 7.4/28.1. WBC was 6.0, PLT 249. Her iron studies from 10/20/2020: 9/475/2/<1. She was advised by her primary to take iron tablets. She tried but these made her constipated. She is taking a multivitamin with some iron in it. She has been tolerating that better. ROS: She tells me she does feel tired at times but not unduly so. No fever nor chills. Appetite goes up and down. She has gained weight. She has had some headaches over the past couple of weeks. No chest pain or trouble breathing. No cough no sputum. She gets heartburn and indigestion. No nausea or vomiting. Denies diarrhea. No gross blood in the stools. She denies dysuria no hematuria. She has not had a. Over the past 7 months or so. She thinks she has gone through the change. Musculoskeletal: She has arthritis in the lower back. She is currently undergoing physical therapy in [place]. She does have history of depression and OCD. [facility] [address]. However she has not gone for a while. Family history: Her daughter was diagnosed with lupus at the age of 16. 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 She is engaged. She has 2 children. She denies smoking. She rarely drinks. No drugs. Review of Systems - Constitutional Reports system reviewed and no additional complaints, except as documented, Reports malaise, Reports weight gain - Eyes Reports system reviewed and no additional complaints, except as documented - ENT Reports system reviewed and no additional complaints, except as documented - Cardiovascular Reports system reviewed and no additional complaints, except as documented - Respiratory Reports no additional respiratory complaints - Gastrointestinal Reports system reviewed and no additional complaints, except as documented, Reports bloating, Reports constipation - Genitourinary Reports no additional female genitourinary complaints - Musculoskeletal Reports system reviewed and no additional complaints, except as documented, Reports back pain - Integumentary/Breasts Skin/Breast: Reports no additional skin complaints - Neurologic Reports system reviewed and no additional complaints, except as documented - Psychiatric Reports system reviewed and no additional complaints, except as documented - Endocrine Reports no additional endocrine complaints - Hematologic/Lymphatic Reports system reviewed and no additional complaints, except as documented - Allergic/Immunologic Reports system reviewed and no additional complaints, except as documented PMF Family History: Family History (Last Updated 12/02/20 @ 13:11 by Beverley Stoll) Mother Diabetes Fibromyoma Anemia Depression Hypertension Asthma Father No problems noted. Mother No problems noted. Mother No problems noted. 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 Smoking status: Former smoker Home Medications and Allergies Home Medications Medication Instructions Recorded Confirmed Type multivitamin 1 tab PO DAILY 11/08/20 12/02/20 History Allergies Allergy/AdvReac Type Severity Reaction Status Date / Time none Allergy Unknown Unknown Uncoded 10/06/20 17:03 Physical Exam Vital signs: Vital Signs Temp 98.5 F 12/02/20 13:01 Pulse 76 12/02/20 13:01 Resp 12 12/02/20 13:01 BP 121/66 12/02/20 13:01 Pulse Ox 96 12/02/20 13:01 Intake & Output 12/01/20 12/02/20 12/02/20 18:59 06:59 18:59 Other: Weight 80.5 kg Weight in Grams 30229 Weight 80.5 kg - Constitutional Present: no acute distress - Routine HEENT Exam Head: Present: normal inspection ENT: Present: mucous membranes moist - Routine Neck Exam Present: supple - Routine Respiratory Exam Present: CTAB - Routine Cardiovascular Exam Cardiovascular: Present: RRR, S1, S2 - Routine Extremities Exam Present: nontender - Routine Skin Exam Present: intact - Routine Neurological Exam Present: alert, oriented X3 - Detailed Neurological Exam: Coma Scale Eye Opening: Spontaneous (4) - Routine Psychiatric Exam Present: depressed Hem/Onc Consult Result - Labs CBC & Chem 7: 12/02/20 13:43 12/02/20 13:43 Assessment and Plan (1) Anemia Status: Acute This is a pleasant 50-year-old lady, with a history of microcytic Anemia. Hemoglobin back in September was 7.4. Hematocrit 28. MCV 56.5. DIFFERENTIAL DIAGNOSIS: 1. IRON DEFICIENCY ANEMIA: This is most likely. Her iron profile from last sun was consistent with it. Concern would be occult GI bleeding. IRON MALABSORPTION: From something like celiac disease is in the differential. 2. THALASSEMIA: In addition this is a possibility given that her MCV is very low an RBC count is 4.97. 3. B12 OR FOLATE DEFICIENCY: She can have multifactorial anemia, especially if she has celiac disease. 4. ANEMIA OF CHRONIC DISEASE: Also a possibility though iron studies are consistent with iron deficiency. 5. MYELO INFILTRATIVE DISORDER: Not likely especially at her young age with no other signs or symptoms. PLAN: I will proceed with further evaluation. Will repeat blood count. Hemoglobin today 7.8. I will check her iron studies: 33/465/7/<1. Check celiac profile. Check B12:1086, and folate levels: >20. Patient is intolerant to oral iron, will arrange for IV Injectofer 7500 mg x2, 1 week apart. She will be referred for further GI evaluation, given her iron deficiency anemia. Based upon her age, she is overdue for her screening colonoscopy anyways. She met with our test case developer to be referred for further counseling, given her depression and OCD. She will return in 3 months for a follow-up visit. Thank you CC: Chad maldonado. Zachariah.
[2020-12-02 13:54] LABS: Basophils Percent Auto 0.3 % (0-2); Eosinophils Absolute Auto 0.2 X10*3/uL (0.0-0.4); Eosinophils Percent Auto 2.3 % (0-4); Hematocrit 29.7 % (37-47); Hemoglobin 7.8 g/dl (12.0-16.0); Imm Gran Abs Auto 0.03 X10*3/uL (0.00-0.03); Imm Gran Pct Auto 0.4 % (0.0-0.4); Lymphocytes Absolute Auto 1.9 X10*3/uL (1.2-4.9); Lymphocytes Percent Auto 27.1 % (20-40); MANUAL DIFF FLAG SCAN; Mean Corpuscular HGB Conc 26.3 g/dl (31.0-35.0); Mean Corpuscular Hemoglobin 15.3 pg (27.0-33.0); Monocytes Absolute Auto 0.4 X10*3/uL (0.1-1.2); Monocytes Percent Auto 6.1 % (2-11); Neutrophils Absolute Auto 4.5 X10*3/uL (2.0-8.3); Neutrophils Percent Auto 63.8 % (45-73); PLT CLUMP 1; Red Cell Distribution Width 23.2 % (11.0-16.0); SCAN SMEAR FLAG 1
[2020-12-02 13:58] LABS: Mean Corpuscular Volume 58.2 fL (80-98)
--- NOTE | 2020-12-02 14:02 | MHC.HEMONCSW ---
PATIENT IS A SINGLE 50 YEAR OLD FEMALE. INDEPENDENT, ABLE TO MAKE NEEDS KNOWN. SEEN IN CONSULT BY DR. CARDENAS FOR ANEMIA. REQUESTED I REFER PATIENT TO A MENTAL HEALTH PROVIDER. DIAGNOSIS OF LONG STANDING IS ANXIETY/DEPRESSION/PTSD AND OCD. HAD LOST HER INSURANCE SO STOPPED GOING TO [facility] ABOUT ONE YEAR AGO. WANTS TO RE-ESTABLISH THERE. NOW HAS INSURANCE SO I MADE A REFERRAL TO [facility] WHO WILL CALL PATIENT IN A FEW DAYS AND GIVE HER AN APPOINTMENT. HER PREVIOUS THERAPIST THERE IS MURRAY. PATIENT VERBALIZED UNDERSTANDING AND GRATITUDE FOR OUR ASSISTANCE.
[2020-12-02 14:12] LABS: Alanine Aminotransferase 13 U/L (0-31); Albumin Level 4.2 g/dL (3.5-5.0); Alkaline Phosphatase 89 U/L (39-117); Anion Gap 13 (12-20); Aspartate Amino Transferase 19 U/L (5-31); Bilirubin Total 0.3 mg/dL (0.0-1.0); Blood Urea Nitrogen 11 mg/dL (9-16); Calcium 9.2 mg/dL (8.4-10.2); Carbon Dioxide 25 mmol/L (22-29); Chloride 107 mmol/L (96-108); Creatinine Clr Calc Pharmacy 92.6; Estimated Glomerular Filt Rate > 60; Glucose Fasting 111 mg/dL (60-99); Iron 33 mcg/dL (30-160); Percent Iron Saturation 7 % (15-50); Potassium 4.4 mmol/L (3.3-5.1); Sodium 141 mmol/L (135-145); Total Iron Binding Capacity 465 mcg/dL (228-428); Total Protein 7.5 g/dL (6.5-8.0); Unsaturated Iron Binding 432 ug/dL
[2020-12-02 14:13] LABS: Platelet Count 229 X10*3/uL (160-400); SLIDE REVIEW VERIFIED; White Blood Count 7.1 X10*3/uL (4.8-10.8)
[2020-12-02 14:33] LABS: Ferritin < 1 ng/mL (10-250)
[2020-12-02 14:48] LABS: Folate > 20.0 ng/mL (> or = 4.0); Vitamin B12 1096 pg/mL (200-900)
--- NOTE | 2020-12-03 09:05 | MHC.HEMONCMA ---
Pt scheduled for injectofer on 12/10/20 @ 11 am. Pt notified.
[2020-12-03 21:47] LABS: Transglutaminase IgA 1 U/mL
[2020-12-08 23:01] LABS: Hematocrit 28.7 % (35.0-45.0); Hemoglobin 7.9 g/dL (11.7-15.5); MCH 15.5 pg (27.0-33.0); MCV 56.2 fL (80.0-100.0); RBC 5.11 Million/uL (3.80-5.10); RDW 21.9 % (11.0-15.0)
== END | disposition home or self-care (01) ==
LOC: HO.ONC 12-02 12:49
PROVIDERS: PCP Physician Assistant; Referring Provider Physician Assistant; Visit Provider Internal Medicine Medical Oncology
DX: D64.9 Anemia, unspecified (principal)
CPT/HCPCS: 36415; 80053; 82607; 82728; 82746; 83021; 83516; 83540; 85014; 85018; 85025; 85041; 99204

== ENCOUNTER 2024-08-12 10:00 | Outpatient (REF) | payer OTHER, SELFPAY ==
[2024-08-12 10:49] LABS: Hematocrit 41.1 % (37.0-47.0); Hemoglobin 13.3 g/dl (12.0-16.0); Mean Corpuscular HGB Conc 32.4 g/dl (31.0-35.0); Mean Corpuscular Hemoglobin 27.3 pg (27.0-33.0); Mean Corpuscular Volume 84.4 fL (80.0-98.0); Mean Platelet Volume 10.7 fL (9.4-12.3); Platelet Count 195 X10*3/uL (160-400); Red Blood Count 4.87 X10*6/uL (4.20-5.50); Red Cell Distribution Width 13.3 % (11.0-16.0); White Blood Count 6.7 X10*3/uL (4.8-10.8)
[2024-08-12 11:40] LABS: Alanine Aminotransferase 23 U/L (0-31); Alkaline Phosphatase 81 U/L (39-117); Anion Gap 9 (12-20); Aspartate Amino Transferase 26 U/L (5-31); Bilirubin Total 0.5 mg/dL (0.0-1.0); Blood Urea Nitrogen 9 mg/dL (9-16); Calcium 8.9 mg/dL (8.4-10.2); Carbon Dioxide 28 mmol/L (22-29); Chloride 107 mmol/L (96-108); Cholesterol 128 mg/dL (<200); Estimated Glomerular Filt Rate > 60; Glucose Fasting 90 mg/dL (60-99); HDL Cholesterol 48 mg/dL (>40); Iron 53 mcg/dL (30-160); LDL Cholesterol Calculated 59 mg/dL (<100); Percent Iron Saturation 20 % (15-50); Potassium 3.6 mmol/L (3.3-5.1); Sodium 140 mmol/L (135-145); Total Iron Binding Capacity 263 mcg/dL (228-428); Triglycerides 105 mg/dL (<150); Unsaturated Iron Binding 210 ug/dL
== END 2024-08-12 10:01 | disposition home or self-care (01) ==
LOC: HO.LAB 10:00
PROVIDERS: PCP Physician Assistant; Visit Provider Physician Assistant
DX: E78.2 Mixed hyperlipidemia (principal); D50.9 Iron deficiency anemia, unspecified
CPT/HCPCS: 36415; 80053; 80061; 83540; 85027

== ENCOUNTER 2024-09-17 15:36 | Outpatient (AMB) | payer OTHER, SELFPAY ==
--- NOTE | 2024-09-17 15:37 | MHC.PC.OV ---
Vital Signs 09/17/24 15:43 Height 5 ft 3 in Weight 160 lb BMI 28.3 BP 122/84 Blood Pressure Location Lt brachial Position Sitting Pulse 70 Pulse Source Pulse Oximeter Pulse Oximetry (%) 95 Oxygen Delivery Method Room Air Intake Visit Reasons: Back pain, med review Intake Note: The patient is here for a medication review and is requesting a prescription for Wegovy. Over the past 3 months, the patient has spent $4,000 [id number] on a 3-month supply of Ozempic, resulting in weight loss from 199 lbs to 160 lbs. The patient no longer wishes to continue paying for Ozempic. Geospatial Technician Required: No Accompanied by: Self / Same As Patient Allergies No Known Allergies Allergy (Verified 09/17/24 16:19) Tobacco use date assessed: 09/17/24 Dental Screening Dental Screen Date: 11/01/23 HPI Back pain, med review HPI Details Pateint is a 54-year-old female here today for follow-up visit. ? Patient's past medical history significant for major depressive disorder,, OCD, Anxiety, hyperlipidemia? iron deficiency anemia. .. Lumbar spine pain: The suffers from chronic low back pain, which has been worsening over the last few months and is described as a constant ache with occasional cracking or scraping sounds during movement. The patient reports that prior x-rays did not reveal significant findings, but she is now experiencing more severe symptoms. The back pain is exacerbated by physical activities such as bending and lifting. The patient has been referred for physical therapy previously, but there was no follow-through on this referral. She reports that the pain has impacted her ability to manage daily activities, notably when lifting her child. Overweight: Has been going to a weight loss clinic in spending 2000 dollars per 3 month trial of semaglutide. Has lost significant amount of weight since last office visit. Interestingly enough her fasting blood sugars have improved and her anemia has normalized. She reports she feels really good physically and mentally. CHRONIC MEDICAL CONDITIONS --> .. GERD:? Continues to have daily GERD symptoms.?? She reports pantoprazole 40 mg daily was with affective thus will continue this medication for now. .. Hyperlipidemia:? Continues on statin therapy without side effect. Most recent fasting lipid panel showing appropriate total cholesterol and LDL .. ? Iron deficiency anemia; most recent labs showing improved CBC. Major depressive disorder:? She has been more stressed as of late due to personal issues. She has been off of follow her psychiatric medication and is interested in getting back on SSRI therapy and talking to a mental health therapist again. ? [facility] Medical History Abnormal EKG Chronic upper abdominal pain COVID-19 vaccine series completed Sleep apnea Anemia Iron deficiency Constipation Lumbar spine pain Insomnia BRENTON (generalized anxiety disorder) Surgical History H/O colonoscopy History of extraction of renal calculus Family History Mother Diabetes Fibromyoma Anemia Depression Hypertension Asthma CVA (cerebral vascular accident) Father No problems noted. 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 1. Little interest or pleasure in doing things: not at all 2. Feeling down, depressed, or hopeless: not at all 3. Trouble falling or staying asleep, or sleeping too much: not at all 4. Feeling tired or having little energy: not at all 5. Poor appetite or overeating: not at all 6. Feeling bad about yourself - or that you are a failure or have let yourself or your family down: not at all 7. Trouble concentrating on things, such as reading the newspaper or watching television: not at all 8. Moving or speaking so slowly that other people could have noticed. Or the opposite - being so fidgety or restless that you have been moving around a lot more than usual: not at all 9. Thoughts that you would be better off or of hurting yourself in some way: not at all Total score: 0 Depression Screening Interpretation: Negative Depression Screening Done: Yes 43692 - PHQ-9 Billing: Yes Source: Developed by Drs. Drake Farris, Joyce Acuna, Valente Klein and colleagues, with an educational leo from [employer]. Thrive Questionnaire Date Thrive assessed: 09/17/24 I am a: Patient What is your living situation today?: I have a steady place to live Within the past 12 months, did the food you bought not last and you didn't have the money to get more?: Never true Within the past 12 months, did you worry whether your food would run out before you got money to buy more?: Never true Do you have trouble paying for medicines?: No Do you have trouble getting transportation to medical appointments?: No Do you have trouble paying your heating and electricity bill?: No Do you have trouble taking care of your child, family member or friend?: No Do you have trouble with day-to-day activities such as bathing, preparing meals, shopping, managing finances, etc.?: No Are you currently unemployed and looking for a job?: No Are you interested in more education?: No Please select the resources that you would like help with: None THRIVE Score: 0 AUDIT C Alcohol Use Questionnaire (AUDIT-C) 1. How often do you have a drink containing alcohol?: Never 3. How often do you have six or more drinks on one occasion?: Never Total Score: 0 BRENTON-7 AMB Questionnaire BRENTON-7 Date BRENTON - 7 assessed: 09/17/24 Feeling nervous, anxious, or on edge: 3 = Nearly every day Not being able to stop or control worryin = More than half the days Worrying too much about different things: 2 = More than half the days Trouble relaxin = More than half the days Being so restless that it is hard to sit still: 1 = Several days Becoming easily annoyed or irritable: 3 = Nearly every day Feeling afraid as if something awful might happen: 3 = Nearly every day Total BRENTON-7 score (0-4 normal; 5-9 mild; 10-14 moderate; 15-21 severe): 16 Source: Developed by Joyce Herbert Armand, Valente Klein and colleagues, with an educational leo from [employer]. BRENTON-7 Assessment Billing BRENTON-7 Assessment Tool: BRENTON-7 Assessment 16438 Review of Systems Const Denies headache(s) Eyes Denies loss of vision ENT Denies vertigo, Denies dizziness, Denies headache(s) and Denies sore throat Card Denies chest pain, Denies leg edema and Denies lightheadedness Resp Denies cough, Denies hemoptysis and Denies wheezing GI Denies abdominal pain, Denies melena, Denies constipation, Denies diarrhea and Denies vomiting Denies urinary frequency, Denies dysuria and Denies urinary urgency Musc Denies arthralgias, Denies joint swelling, Denies numbness and Denies tingling Neuro Denies Abnormal speech present, Denies behavioral changes, Denies vertigo, Denies dizziness, Denies headache(s), Denies loss of vision, Denies memory loss, Denies numbness and Denies tingling Psych Denies anxiety, Denies behavioral changes, Denies depression, Denies memory loss and Denies panic attacks Jos/Lymph Denies easy bleeding and Denies easy bruising Aller/Immun Denies wheezing Physical exam (Primary Care) Vital Signs: Last Vital Signs Pulse 70 09/17/24 15:43 BP 122/84 09/17/24 15:43 Pulse Ox 95 09/17/24 15:43 Oxygen Delivery Method Room Air 09/17/24 15:43 BMI result Body Mass Index 28.3 BMI Assessment/Plan discussion: High BMI High, discussed plan: lifestyle, weight reduction, dietary and physical activity Tobacco/Smoking Status: Tobacco use Status Tobacco use date assessed 09/17/24 09/17/24 15:55 Patient Tobacco Use Status Former Tobacco user 09/17/24 15:37 Tobacco use type Cigarette 09/17/24 15:37 e-Cigarette/Vaping Use Never Used 09/17/24 15:37 PHQ-9: PHQ-9 Score PHQ-9: Total score 0 09/17/24 15:49 Depression Screening Interpretation: Negative Thrive Assessment: Date of Thrive Assessment Date Thrive assessed 09/17/24 09/17/24 15:37 Const General: healthy appearing, no acute distress, alert and awake Nutritional Appearance: well nourished Orientation/consciousness: oriented to person, oriented to place and oriented to time HENMT Ears: TM's normal bilaterally General nose exam: Normal nasal mucous membranes and turbinates present Eyes Conjunctivae: conjunctivae normal Sclerae: sclerae normal Pupils: Equal, round and reactive pupils present Neck Neck: Yes no lymphadenopathy and Yes no JVD Thyroid: Thyroid normal Carotids: no bruits Resp Effort & Inspection: normal respiratory effort and not tachypneic Auscultation: no crackles, no rales, no rhonchi and no wheezes Cardio Rate: regular rate Rhythm: regular rhythm Heart sounds: no murmurs and normal S1 and S2 GI Palpation (GI): Soft to palpation, nontender, no hepatomegaly and no splenomegaly Auscultation: normal bowel sounds Skin General skin exam: no rashes or lesions noted and dry skin Neuro General: oriented to person, oriented to place and oriented to time Cranial nerves: Yes Equal, round and reactive pupils present Speech: No Abnormal speech present Gait exam (Neuro): Normal gait present Motor exam (neuro): no tremor noted Extrem Right upper extremity: full ROM Left upper extremity: full ROM Right lower extremity: full ROM; no edema Left lower extremity: full ROM; no edema Psych Mental Status: mental status grossly normal Speech and movement: Normal speech and movement present Affect: normal affect Attitude: cooperative Thought process: Normal thought process present Office Procedures Flu Questionnaire Does the patient have a severe egg allergy?: No Does the patient have severe life threatening allergies?: No Does the patient have a fever or illness today?: No Has the patient ever had Guillain-Henderson Syndrome?: No Has the patient ever had any past reaction to a flu shot?: No Immunizations Fluarix Triv 6099-1670 (PF) 45 mcg (15 mcg x 3)/0.5 mL IM syringe Performing Provider: Mychal Maldonado PA-C [facility] [place] [facility] Administered by: ROHIT Cruz on 09/17/24 15:55 Dose Route Admin Location Dispensed Lot Number Expiration Date [facility] [id number][NOTE 3] Paragliding Instructor 0.5 mL IM Right Deltoid 0.5 mL [id number] 03/09/25 49701-553-36 Monitor VIS Given Date VIS Provided VIS Publication Date 09/17/24 Single Vaccine 21 Eligibility Eligibility Date Funding Source Not [facility] Eligible 09/17/24 Private Coding Level of Care Code Est Pt Level 4 (72085) Diagnoses Mixed hyperlipidemia E78.2 Hyperlipidemia type: mixed hyperlipidemia Abnormal EKG R94.31 Lumbar spine pain M54.5 Gastroesophageal reflux disease with esophagitis without hemorrhage K21.00 Esophagitis bleeding: without hemorrhage Esophagitis presence: with esophagitis Class 1 obesity due to excess calories without serious comorbidity with body mass index (BMI) of 30.0 to 30.9 in adult E66.09; Z68.30 Obesity type: due to excess calories Obesity classification: adult class 1 (BMI 30 - 34.9) Serious obesity comorbidity presence: without serious comorbidity Body mass index: BMI 30.0-30.9 MDD (major depressive disorder), recurrent episode, moderate F33.1 Primary insomnia F51.01 Insomnia type: primary Additional Codes BRENTON-7 Assessment Billing - BRENTON-7 Assessment Tool: BRENTON-7 Assessment 01502 ([id number]) PHQ-9 - 49601 - PHQ-9 Billing: Yes ([id number]) Assessment & Plan Assessment & Plan (1) HLD (hyperlipidemia): Code(s): E78.5 - Hyperlipidemia, unspecified Category: Medical Qualifiers: Hyperlipidemia type: mixed hyperlipidemia Qualified Code(s): E78.2 - Mixed hyperlipidemia Plan: Most recent lipid panel showing good control over total cholesterol and LDL. She would like to continue her current dose of atorvastatin 40 mg to continue reducing her cardiovascular risk due to her strong family history having coronary artery disease. (2) Abnormal EKG: Code(s): R94.31 - Abnormal electrocardiogram [ECG] [EKG] Category: Medical Plan: Was followed by Cardiology in the past for an abnormal EKG. She would like to reestablish care with Cardiology. She does note pretty significant family history of coronary artery disease (3) Lumbar spine pain: Code(s): M54.5 - Low back pain Category: Medical Plan: Recommendation for follow-up on physical therapy referral. Consideration of pain management evaluation for possible cortisone injection (4) GERD (gastroesophageal reflux disease): Code(s): K21.9 - Gastro-esophageal reflux disease without esophagitis Category: Medical Qualifiers: Esophagitis bleeding: without hemorrhage Esophagitis presence: with esophagitis Qualified Code(s): K21.00 - Gastro-esophageal reflux disease with esophagitis, without bleeding Plan: Re-prescribe pantoprazole. Advise possible OTC antacids for breakthrough symptoms. Consider referral for GI specialist for further evaluation. (5) Obese: Code(s): E66.9 - Obesity, unspecified Category: Medical Qualifiers: Obesity type: due to excess calories Obesity classification: adult class 1 (BMI 30 - 34.9) Serious obesity comorbidity presence: without serious comorbidity Body mass index: BMI 30.0-30.9 Qualified Code(s): E66.09 - Other obesity due to excess calories; Z68.30 - Body mass index [BMI] 30.0-30.9, adult Plan: Patient's previous BMI was above 30 (weight was around 200-210 lb) before she started the weight loss clinic taking semaglutide like injection. She has lost nearly 40 lb. Her BMI now at 28.3 She now feels great physically and emotionally. Unfortunately it is very expensive for her to keep going to the clinic. Will try to transition to PCP prescribing Wegovy and/or any other GLP 1 alternative to help her maintain weight loss. She does have a good understanding of calorie restricted diet and she is working out several times a week. Medical justification--> both patient's cholesterol, fasting blood sugar and anemia have normalize since maintaining her BMI below obesity standards. She has shown clear benefit of weight loss (6) MDD (major depressive disorder), recurrent episode, moderate: Code(s): F33.1 - Major depressive disorder, recurrent, moderate Category: Medical Plan: Patient does suffer from depression and anxiety. She was on sertraline in the past which had helped. She would like to return back to using sertraline thus script has been sent in. She is not interested in mentalealth therapy at this time. (7) Insomnia: Code(s): G47.00 - Insomnia, unspecified Category: Medical Qualifiers: Insomnia type: primary Qualified Code(s): F51.01 - Primary insomnia Plan: She occasionally has trouble sleeping to which he attributes to her anxiety during the day. She has had Ambien in the past to which has helped on a p.r.n. basis for a tough night of sleep. Orders: Orders Influenza [id number] Immunization 09/17/24 Z23 - Encounter for immunization XR lumbar spine 2-3V 09/17/24 G89.29 - Other chronic pain, M54.41 - Lumbago with sciatica, right side XR lumbar spine 2-3V 09/17/24 G89.29 - Other chronic pain, M54.41 - Lumbago with sciatica, right side Referrals Cardiology Referral R94.31 - Abnormal electrocardiogram [ECG] [EKG] Pain Management Referral G89.29 - Other chronic pain, M54.41 - Lumbago with sciatica, right side Medications: New semaglutide (weight loss) ([place]) administer weeks 1 through 4 of therapy 0.25 mg (0.5 mL) subcut QWEEK 4 weeks 2 mL 0RF E66.09 - Other obesity due to excess calories, E78.2 - Mixed hyperlipidemia, Z68.30 - Body mass index [BMI] 30.0-30.9, adult Changed From sumatriptan succinate take 1 tab at onset of headache; if no relief may repeat 1 tab after at least 2 hrs; max = 4 tabs/24 hr PO D64.9 - Anemia, unspecified To sumatriptan succinate 25 mg orally; 30 days 10 tabs 0RF D64.9 - Anemia, unspecified Refilled atorvastatin 40 mg PO DAILY 90 days 90 tabs 2RF E78.5 - Hyperlipidemia, unspecified hydroxyzine HCl 25 mg PO BEDTIME 90 days 90 tabs 3RF pantoprazole 40 mg PO DAILY 90 days 90 tabs 1RF K21.9 - Gastro-esophageal reflux disease without esophagitis cholecalciferol (vitamin D3) 50 mcg PO DAILY 90 days 90 caps 2RF sennosides (Senna Laxative) 8.6 mg PO BEDTIME 90 tabs 1RF K59.04 - Chronic idiopathic constipation zolpidem (Ambien) 10 mg PO BEDTIME 10 days 10 tabs 1RF F51.01 - Primary insomnia sertraline 50 mg PO DAILY 30 days 30 tabs 6RF F33.1 - Major depressive disorder, recurrent, moderate
[2024-09-17 15:43] VITALS: BP 122/84; PULSE 70; O2SAT 95; BMI 28.3
== END 2024-09-17 16:25 | disposition home or self-care (01) ==
PROVIDERS: PCP Physician Assistant; Visit Provider Physician Assistant
DX: Z23 Encounter for immunization (principal)

== ENCOUNTER → 2024-09-17 15:36 | Outpatient (BNVA) | payer OTHER, SELFPAY | PROVIDERS: PCP Physician Assistant; Visit Provider Physician Assistant | DX: M54.50 Low back pain, unspecified (principal); K21.9 Gastro-esophageal reflux disease without esophagitis; E78.2 Mixed hyperlipidemia; R94.31 Abnormal electrocardiogram [ECG] [EKG]; K21.00 Gastro-esophageal reflux disease with esophagitis, without bleeding; G89.29 Other chronic pain; E66.09 Other obesity due to excess calories; F33.1 Major depressive disorder, recurrent, moderate; F51.01 Primary insomnia; Z23 Encounter for immunization; Z68.30 Body mass index [BMI] 30.0-30.9, adult | CPT/HCPCS: 90471; 90656; 96127; 99212 ==

== ENCOUNTER 2024-09-25 11:22 | Outpatient (AMB) | payer OTHER, SELFPAY ==
--- NOTE | 2024-09-25 11:26 | MHC.OFFVIS ---
Vital Signs 09/25/24 11:38 Height 5 ft 3 in Weight 161 lb BMI 28.5 BP 127/93 H Blood Pressure Location Rt brachial Position Sitting Pulse 81 Pulse Source Pulse Oximeter Pulse Oximetry (%) 98 Oxygen Delivery Method Room Air Intake Visit Reasons: Lumbago with sciatica, right side Intake Note: Pain today 9/10 Clinical Sociologist Required: No Accompanied by: Self / Same As Patient Allergies No Known Allergies Allergy (Verified 09/25/24 11:40) HPI Comments Details: Brooklynn is a very pleasant 54-year-old female who presents to the office today for evaluation and management of her chronic lower back pain She has been suffering with this pain for approximately 3 years. Denies inciting injury, fall, trauma Endorses midline lower back pain without radiation down either lower extremity. Denies weakness, numbness, tingling of either lower extremity Pain is worse with bending, lifting, twisting. 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 Pain today is rated as a 9/10, constant and worse in the middle of the day and at night Denies red flag symptoms including new loss of bowel, bladder or saddle anesthesia She has tried Tylenol, ibuprofen, lidocaine patches, icy hot all without improvement of her symptoms No recent attempts at physical therapy, chiropractor, acupuncture or massage In terms of muscle damage condition is described as burning, aching, stabbing, throbbing Pain is negatively impacting patient's sleep, enjoyment of life, general activity, ability to care for her family Denies current use of anticoagulants Denies implantable devices, pacemaker or defibrillator Denies current use of nicotine, tobacco, alcohol or illicit substances [facility] Medical History Abnormal EKG Chronic upper abdominal pain COVID-19 vaccine series completed Sleep apnea Anemia Iron deficiency Constipation Lumbar spine pain Insomnia BRENTON (generalized anxiety disorder) Surgical History H/O colonoscopy History of extraction of renal calculus Family History Mother Diabetes Fibromyoma Anemia Depression Hypertension Asthma CVA (cerebral vascular accident) Father No problems noted. 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 Answers questions appropriately. Fully engaged in examination. Skin: warm, dry, intact HEENT: Normocephalic. Hearing intact. Cardiac: External chest normal in appearance. Respiratory: No cough, audible wheezing or stridor. Abdomen: without gross distension. MS: No obvious swelling or deformities. Able to stand on bilateral tiptoes and bilateral heels.? Able to transition from sit to stand unassisted. Ambulates with bilaterally normal heel strike and toe off Nontender over bilateral PSIS Tenderness to midline lumbar vertebrae and lumbar paraspinal muscles, left greater than right SLR negative bilaterally Facet loading positive Full lumbar range of motion. Neurological: Oriented to person, place, time and situation. Thought process intact. No gait abnormalities appreciated. Psychiatric: Appropriate mood and affect. Good judgment and insight. Results Reviewed Results Reviewed: 04/02/23 XR/XR lumbar spine 2-3V IMPRESSION: Unremarkable lumbar spine exam. Assessment & Plan Assessment & Plan (1) Chronic back pain: Code(s): M54.9 - Dorsalgia, unspecified; G89.29 - Other chronic pain Category: Medical (2) Lumbar spondylosis: Code(s): M47.816 - Spondylosis without myelopathy or radiculopathy, lumbar region Category: Medical Plan Brooklynn is a very pleasant 54-year-old female who presented to the office today for evaluation and management of her chronic lower back pain History, physical exam and provocative testing consistent with lumbar spondylosis Order placed for PT eval and treat X-ray was ordered by referring provider but has not been completed yet. Patient was encouraged to have this done as soon as possible. Methocarbamol 500 mg p.o. 3 times daily as needed. Patient advised on cautions for use. Diclofenac topical, apply to most painful area twice daily as needed If no improvement with physical therapy and muscle relaxers will plan for bilateral diagnostic L3-L4 DR L5 medial branch blocks with local anesthetic All questions and concerns were answered, patient agrees with the plan. Follow up after physical therapy, sooner if needed Orders: Orders PT Evaluation and Treatment Today G89.29 - Other chronic pain, M47.816 - Spondylosis without myelopathy or radiculopathy, lumbar region, M54.9 - Dorsalgia, unspecified Medications: New diclofenac sodium 3% apply to most painful area twice daily as needed for pain 1 appl topical BID 30 days 100 grams 3RF methocarbamol No driving while taking this medication. Do no take with alcohol or other TRAUMA DOCTOR Depressants 500 mg PO TID PRN 90 tabs 1RF muscle spasm Coding Level of Care Code New Pt Level 4 (28549) Complex EM visit Add On G2211 Diagnoses Chronic back pain M54.9; G89.29 Lumbar spondylosis M47.816
[2024-09-25 11:38] VITALS: BP 127/93; PULSE 81; O2SAT 98; BMI 28.5
== END 2024-09-25 12:09 | disposition home or self-care (01) ==
PROVIDERS: PCP Physician Assistant; Referring Provider Physician Assistant; Visit Provider Registered Nurse Emergency
DX: M54.9 Dorsalgia, unspecified (principal); G89.29 Other chronic pain; M47.816 Spondylosis without myelopathy or radiculopathy, lumbar region
CPT/HCPCS: 99204; G2211

== ENCOUNTER → 2024-09-25 12:20 | Outpatient (BNV) | payer OTHER, SELFPAY | PROVIDERS: Absent Provider Physician Assistant; PCP Physician Assistant; Visit Provider Radiology Diagnostic Radiology | DX: M54.41 Lumbago with sciatica, right side (principal) | CPT/HCPCS: 72100 ==

== ENCOUNTER 2024-10-13 11:26 | Outpatient (AMB) | payer OTHER, SELFPAY ==
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
[2024-10-13 11:45] VITALS: BP 122/80; PULSE 85; TEMP 36.9; O2SAT 97; BMI 28.5
== END 2024-10-13 13:08 | disposition home or self-care (01) ==
PROVIDERS: PCP Physician Assistant; Visit Provider Nurse Practitioner Family
DX: J06.9 Acute upper respiratory infection, unspecified (principal)

== ENCOUNTER 2024-10-13 11:26 | Outpatient (REF) | payer OTHER, SELFPAY ==
--- OUTSIDE RECORDS SUMMARY | 2024-10-13 13:45 | XMS_ITS | Clinical Summary ---
Author Organization [facility] [address] [facility] lding Address [address] [place] [address] Phone Care Team Providers Care Care Companion Name Role Phone Mychal Castillo Primary Care Provider Allergies No known active allergies Medications Medication Sig Dispensed Refills Start Date End Date Status multivitamin (MULTIPLE VITAMINS ORAL) Take 1 tablet by mouth 1 (one) time each day. 02/28/2023 Active aspirin 81 mg EC tablet Take 1 tablet (81 mg total) by mouth 1 (one) time each day. 05/22/2024 Active atorvastatin (LIPITOR) 40 mg tablet Take 1 tablet (40 mg total) by mouth 1 (one) time each day. for 360 days. 04/12/2022 Active cholecalciferol (VITAMIN D-3) 50 mcg (2,000 unit) capsule Take 1 capsule (2,000 Units total) by mouth 1 (one) time each day. 10/12/2023 Active pantoprazole (PROTONIX) 40 mg EC tablet Take 1 tablet (40 mg total) by mouth 2 (two) times a day. 04/12/2022 Active phentermine 37.5 mg capsule PLEASE SEE ATTACHED FOR DETAILED DIRECTIONS 03/26/2023 Active senna (SENOKOT) 8.6 mg tablet Take 1 tablet (8.6 mg total) by mouth at bedtime. 01/30/2023 Active SUMAtriptan (IMITREX) 25 mg tablet PLEASE SEE ATTACHED FOR DETAILED DIRECTIONS 01/31/2023 Active zolpidem (AMBIEN) 5 mg tablet Take 1 tablet (5 mg total) by mouth at bedtime as needed for sleep. Max Daily Amount: 5 mg 03/06/2014 Active Active Problems Problem Noted Date Diagnosed Date CAD (coronary artery disease) 04/05/2023 Overview (08/12/2024): Last Assessment & Plan: The patient has a history of mild nonobstructive coronary artery disease seen on cardiac CT completed December 2022. She continues on cardioprotective medical therapy with atorvastatin 40 mg orally daily. I will have her start on aspirin 81 mg orally daily. We reviewed side effects. She denies any exertional symptoms. I will have her update a fasting lipid panel. Hyperlipidemia 04/12/2022 Overview (08/12/2024): Last Assessment & Plan: The patient has a history of mild nonobstructive coronary artery disease as well as a history of hyperlipidemia. She continues on atorvastatin 40 mg orally daily. Her last LDL was 90. I will have her repeat a fasting lipid panel to reassess her lipid control and make any adjustments as necessary. Abnormal EKG 04/06/2022 Chest pain 11/23/2021 Overview (08/12/2024): Last Assessment & Plan: The patient came for evaluation due to episodes of chest pain. The description of the symptoms is consistent with atypical chest pain. She has also been complaining of exertional dyspnea with associated fatigue. The patient has the following risk factors for coronary artery disease: hyperlipidemia, and obesity. The patient does have a baseline EKG abnormality in the form of ST segment depressions/T wave inversions in the anterior leads which has been noted on previous EKGs. The patient's last ischemic evaluation was with a nuclear stress test in July 2021 that did not show any evidence of ischemia or infarct. Given the patient's current symptoms and her risk factors for CAD, further testing is indicated. We will refer the patient for a cardiac CT scan to rule out any underlying coronary artery disease as a cause of her symptoms. The use of a cardiac CT scan is recommended by the ACC chest pain guidelines. On the other hand, we will also refer the patient for an echocardiogram to rule out any underlying structural heart disease as a cause of her symptoms. The patient is being evaluated for possible coronary artery disease. During today's visit, we reviewed the warning signs that should prompt an urgent medical evaluation. Specifically, we discussed that the patient should go to the hospital if she develops any chest discomfort at rest or worsening chest discomfort with exertion. Overweight 11/23/2021 Arthritis 10/28/2020 Depression 03/26/2013 Insomnia 03/26/2013 Migraine 09/19/2011 Tension headache 04/28/2011 Anemia 04/04/2011 Immunizations Name Administration Dates Next Due Influenza trivalent, 0.5mL, preservative free (Fluarix; FluLaval; Fluzone) ages 6mo and older (Afluria) 3 years and older 08/19/2014,06/09/2013,07/03/2011 Pfizer SARS-CoV-2 COVID-19, mRNA, LNP-S, preservative free 10/27/2020 Surgical History Surgery Date Site/Laterality Comments KIDNEY STONE SURGERY PROCEDURE: [place] NEPHROLITHOTOMY REMOVAL CALCULUS Medical History Medical History Date Comments Kidney stones 2007 DX:Kidney stones Overweight DX:Overweight Insomnia DX:Insomnia Anxiety DX:Anxiety Panic attacks DX:Panic attacks Anemia DX:Anemia Constipation DX:Constipation Iron deficiency anemia DX:Iron d eficiency anemia Lumbar spine pain DX:Lumbar spin e pain Chest pain DX:Chest pain Chronic low back pain with sciatica DX:Chronic low back pain with sciatica GERD (gastroesophageal reflux disease) DX:GERD (gastroesophageal reflux disease) Bloating DX:Bloating Family History Medical History Relation Name Comments Diabetes Brother 1 Other: LUPUS Daughter Anemia Mother Asthma Mother Depression Mother Diabetes Mother Hypertension Mother Nephrolithiasis Mother Other: Fibromyoma Mother Other: HEART Mother Thyroid disease Mother Diabetes Sister 1 Stroke Sister 1 Breast cancer Neg Hx Ovarian cancer Neg Hx Relation Name Status Comments Brother 1 Alive Brother 2 Alive Brother 3 Alive Daughter Alive Father Alive Mother Alive Sister 1 Sister 2 Alive Social History Tobacco Use Types Packs/Day Years Used Date Smoking Tobacco: Former Cigarettes Q uit: 09/10/2008 Smokeless Tobacco: Never Alcohol Use Standard Drinks/Week Comments Not Currently 0 (1 standard drink = 0.6 oz pur e alcohol) Sex and Gender Information Value Date Recorded Sex Assigned at Not on file Gender Identity Not on file Sexual Orientation Not on file Obstetrics History Last Filed Vital Signs Vital Sign Reading Time Taken Comments Blood Pressure 119/81 10/12/2023 9:57 AM EST Pulse 92 10/12/2023 9:57 AM EST Temperature - - Respiratory Rate - - Oxygen Saturation - - Inhaled Oxygen Concentration - - Weight 81.2 kg (179 lb) 10/12/2023 9:57 AM EST Height 162.6 cm (5' 4 ) 10/12/2023 9:57 AM EST Body Mass Index 30.73 10/12/2023 9:57 AM EST Plan of Treatment Upcoming Encounters Date Type Department Care Team (Late st Contact Info) Description 10/17/2024 9:45 AM EST Office Visit Obstetrics & Gynecology - [address] [phone] Odette Rubi, CNM [address] [place] [address] Health Maintenance Due Date Last Done Comments DTaP,Tdap,and Td Vaccines (1 - Tdap) 1989 Hepatitis B Vaccines (1 of 3 - 19+ 3-dose series) 1989 Zoster Vaccines (1 of 2) 01/02/2020 Cholesterol Screening (Lipid Panel) 08/19/2022 10/09/2013 Colorectal Cancer Screening: Colonoscopy 08/19/2022 Depression Screening 08/19/2022 HIV Screening 08/19/2022 Social Influencers of Health Screening 08/19/2022 Hypertension/CHF/CAD Annual BMP Blood Test 10/09/2023 03/15/2022 COVID-19 Vaccine ( season) 2024 10/27/2020 Influenza Vaccine (#1) 2024 4, 06/09/2013, 07/03/2011 Breast Cancer Screening 11/25/2025 11/26/19 24, 03/23/2022, 12/12/2020, Additional history exists Cervical Cancer Screening: HPV 03/15/2027 03/15/2022 Hepatitis C Screening Completed 03/26/2018 HIB Vaccines Aged Out No longer eligi ble based on patient's age to complete this topic HPV Vaccines Aged Out No longer eligi ble based on patient's age to complete this topic Hepatitis A Vaccines Aged Out No long er eligible based on patient's age to complete this topic IPV Vaccines Aged Out No longer eligi ble based on patient's age to complete this topic MMR Vaccines Aged Out No longer eligi ble based on patient's age to complete this topic Meningococcal ACWY Vaccine Aged Out N o longer eligible based on patient's age to complete this topic Pneumococcal Vaccine: Pediatrics (0 to 5 Years) and At-Risk Patients (6 to 64 Years) Aged Out No longer eligible based on patient's age to complete this topic RSV Immunization Patients Under 20 months Aged Out No longer eligible based on patient's age to complete this topic Varicella Vaccines Aged Out No longer eligible based on patient's age to complete this topic Procedures Procedure Name Priority Date/Time Associated Diagnosis Comments [facility] SCREENING DIGITAL Routine 11/26/2023 9:50 AM EDT Encounter for screening mammogram for malignant neoplasm of breast HPV Routine 03/15/2022 ANNUAL BMP BLOOD TEST Routine 03/15/2022 HEPATITIS C SCREENING Routine 03/26/2018 LIPID PANEL Routine 10/09/2013 from Last 3 Months or Most Recently Relevant to Health Maintenance Results * ERIBERTO SCREENING DIGITAL (11/26/2023 9:50 AM EDT) Anatomical Region Laterality Modality Mammography 11/22/2023 11:0 6 AM EDT Narrative 11/26/2023 9:50 AM EDT [facility] Diagnostic Imaging Department [address] [place], [place] [id number] Patient: ??BROOKLYNN BARNETT ?/Age/Sex: 1970 - 53 - F Unit#: ??[id number] ? Location/Status: ??SPDIMAM/REG CLI ? Mnemonic/Ordering Site: ??DIGSC/SPMAM Ordering Physician: ??MYCHAL CASTILLO PA-C [facility] Screening Digital - 11/24/23 - 954 Report Status:Signed EXAM: [facility] Screening Digital EXAM DATE AND TIME: 11/24/2023 9:55 AM HISTORY: ??Annual screening COMPARISON: ??Multiple exams dating back to 2014 TECHNIQUE: Bilateral digital breast tomosynthesis was performed in the CC and MLO projections. Computer aided detection with [employer] 3D 3.1 was employed. TISSUE DENSITY: b. There are scattered areas of fibroglandular density. FINDINGS: No suspicious masses, grouped microcalcifications, or areas of architectural distortion are seen. The skin and vascularity are unremarkable. IMPRESSION: Stable mammographic appearance of the breasts. ??No evidence of malignancy is seen. A negative mammogram in the presence of a clinically suspicious palpable abnormality does not preclude the possibility of malignancy or alter the indications for biopsy. BI-RADS: ??Category 1: Negative RECOMMENDATION(S): 1: Routine screening mammogram BILATERAL in 1 year. 3341F, 7025F Dictating Physician: ??CAMACHO VINES MD Electronically Signed by: ??CAMACHO VINES MD Dic Date/Time: ??11/26/23 0948 Sign date/Time: ??11/26/23 0950 Procedure Note Camacho Vines MD - 04/28/2024 [facility] Diagnostic Imaging Department [address] [place] [address] Patient: BROOKLYNN BARNETT /Age/Sex: 1970 - 53 - F Unit#: [id number] Location/Status: SPDIMAM/REG CLI Mnemonic/Ordering Site: [facility] Ordering Physician: MYCHAL CASTILLO PA-C [facility] Screening Digital - 11/24/23 - 954 Report Status:Signed EXAM: [facility] Screening Digital EXAM DATE AND TIME: 11/24/2023 9:55 AM HISTORY: Annual screening COMPARISON: Multiple exams dating back to 2014 TECHNIQUE: Bilateral digital breast tomosynthesis was performed in the CCand MLO projections. Computer aided detection with [employer] 3D 3.1was employed. TISSUE DENSITY: b. There are scattered areas of fibroglandular density. FINDINGS: No suspicious masses, grouped microcalcifications, or areas ofarchitectural distortion are seen. The skin and vascularity are unremarkable. IMPRESSION: Stable mammographic appearance of the breasts. No evidence of malignancyis seen. A negative mammogram in the presence of a clinically suspicious palpable abnormality does not preclude the possibility of malignancy or alter the indications for biopsy. BI-RADS: Category 1: Negative RECOMMENDATION(S): 1: Routine screening mammogram BILATERAL in 1 year. 3341F, 7023F Dictating Physician: CAMACHO VINES MD Electronically Signed by: CAMACHO VINES MD Dic Date/Time: 11/26/23 0948 Sign date/Time: 11/26/23 0950 Mychal JACQUES IMG BI PROCEDURES * Cervical Cancer Screening: HPV (03/15/2022) Pathologist [facility] Cervical Cancer Screening: HPV Negative, abstracted Historical Provider MD LUIS ORTEGA E * Annual BMP Blood Test (03/15/2022) Pathologist [facility] Annual BMP Blood Test Abstracted Historical Provider MD LUIS Hannah * Hepatitis C Screening (03/26/2018) [facility] Hepatitis C Screening Abstracted Historical Provider MD LUIS ORTEGA E * (ABNORMAL) Lipid panel (10/09/2013) [facility] LDL/HDL Ratio 3 0 - 4 Triglycerides 248(A) 0 - 150 mg/dL Cholesterol 187 0 - 200 mg/dL HDL 65 40 mg/dL LDL Cholesterol 73 0 - 100 mg/dL Blood Venous blood specimen / Unknown Historical Provider LAB BLOOD ORDERAB LES from Last 3 Months or Most Recently Relevant to Health Maintenance Care Teams Care Companion Relationship Specialty Start Date End Date Mychal Castillo PA [address] [place] [address] PCP - General Internal Medicine 04/12/22
== END 2024-10-13 11:27 | disposition home or self-care (01) ==
LOC: HO.LAB 11:26
PROVIDERS: PCP Physician Assistant; Visit Provider Nurse Practitioner Family
DX: J06.9 Acute upper respiratory infection, unspecified (principal)
CPT/HCPCS: 99212

== ENCOUNTER 2024-10-13 11:26 | Outpatient (REF) | payer OTHER, SELFPAY ==
[2024-10-13 15:06] LABS: Influenza A PCR POSITIVE (Negative); Influenza B PCR NEGATIVE (Negative); Resp Syncy Virus RNA Qual PCR NEGATIVE (Negative); SARS COV2 PCR INHOUSE NEGATIVE (Negative)
--- OUTSIDE RECORDS SUMMARY | 2024-10-13 16:00 | XMS_ITS | Clinical Summary ---
Author Organization [facility] [address] [facility] lding Address [address] [place] [address] Phone Care Team Providers Care Lumber Puller Name Role Phone Mychal Castillo Primary Care Provider [phone] Allergies No known active allergies Medications Medication [...] Date Site/Laterality Comments KIDNEY STONE SURGERY PROCEDURE: [place] NEPHROLITHOTOMY REMOVAL CALCULUS Medical History Medical History [...] EST Office Visit Obstetrics & Gynecology - [address] [phone] Odette Rubi, CNM [address] [place] [address] Health Maintenance Due Date Last Done Comments [...] Procedure Name Priority Date/Time Associated Diagnosis Comments [facility] SCREENING DIGITAL Routine 11/26/2023 9:50 AM [...] AM EDT Narrative 11/26/2023 9:50 AM EDT [facility] Diagnostic Imaging Department [address] [place], [place] [id number] Patient: ??BROOKLYNN BARNETT ?/Age/Sex: 1970 - 53 - F Unit#: ??[id number] ? Location/Status: ??SPDIMAM/REG CLI ? Mnemonic/Ordering Site: ??DIGSC/SPMAM Ordering Physician: ??MYCHAL CASTILLO PA-C [facility] Screening Digital - 11/24/23 - 954 Report Status:Signed EXAM: [facility] Screening Digital EXAM DATE AND TIME: 11/24/2023 9:55 AM HISTORY: ??Annual screening COMPARISON: ??Multiple exams dating back to 2014 TECHNIQUE: Bilateral digital breast tomosynthesis was performed in the CC and MLO projections. Computer aided detection with [employer] 3D 3.1 was employed. TISSUE DENSITY: b. [...] Procedure Note Camacho Vines MD - 04/28/2024 [facility] Diagnostic Imaging Department [address] [place] [address] Patient: BROOKLYNN BARNETT /Age/Sex: 1970 - 53 - F Unit#: [id number] Location/Status: SPDIMAM/REG CLI Mnemonic/Ordering Site: [facility] Ordering Physician: MYCHAL CASTILLO PA-C [facility] Screening Digital - 11/24/23 - 954 Report Status:Signed EXAM: [facility] Screening Digital EXAM DATE AND TIME: 11/24/2023 9:55 AM HISTORY: Annual screening COMPARISON: Multiple exams dating back to 2014 TECHNIQUE: Bilateral digital breast tomosynthesis was performed in the CCand MLO projections. Computer aided detection with [employer] 3D 3.1was employed. TISSUE DENSITY: b. There [...] screening mammogram BILATERAL in 1 year. 3341F, 7069F Dictating Physician: CAMACHO VINES MD Electronically Signed by: CAMACHO VINES MD Dic Date/Time: 11/26/23 0948 Sign date/Time: 11/26/23 0950 Mychal JACQUES IMG BI PROCEDURES * Cervical Cancer Screening: HPV (03/15/2022) Pathologist [facility] Cervical Cancer Screening: HPV Negative, abstracted Historical Provider MD LUIS ORTEGA E * Annual BMP Blood Test (03/15/2022) Pathologist [facility] Annual BMP Blood Test Abstracted Historical Provider MD LUIS Hannah * Hepatitis C Screening (03/26/2018) [facility] Hepatitis C Screening Abstracted Historical Provider MD LUIS ORTEGA E * (ABNORMAL) Lipid panel (10/09/2013) [facility] LDL/HDL Ratio 3 0 - 4 Triglycerides 248(A) 0 - 150 mg/dL Cholesterol 187 0 - 200 mg/dL HDL 65 40 mg/dL LDL Cholesterol 73 0 - 100 mg/dL Blood Venous blood specimen / Unknown Historical Provider LAB BLOOD ORDERAB LES from Last 3 Months or Most Recently Relevant to Health Maintenance Care Teams Lumber Puller Relationship Specialty Start Date End Date Mychal Castillo PA [address] [place] [address] PCP - General Internal Medicine 04/12/22
== END 2024-10-13 11:27 | disposition home or self-care (01) ==
LOC: HO.LNP 11:26
PROVIDERS: Visit Provider Nurse Practitioner Family
DX: J06.9 Acute upper respiratory infection, unspecified (principal)
CPT/HCPCS: 0241U

== ENCOUNTER 2024-11-04 13:28 | Outpatient (AMB) | payer OTHER, SELFPAY ==
[2024-11-04 13:34] VITALS: BP 118/62; PULSE 73; O2SAT 94; BMI 29.1
--- NOTE | 2024-11-04 13:34 | A.OFFPC_ITS ---
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 Required: No Accompanied by: Self / Same As Patient Allergies No Known Allergies Allergy (Verified 11/04/24 13:42) Medication List - Last Reconciled 11/04/24 by Mychal Maldonado PA-C acetaminophen 1,000 mg (2 x 500 mg) PO Q6H PRN atorvastatin 40 mg PO DAILY 90 days benzonatate 100 mg PO TID cholecalciferol (vitamin D3) 50 mcg PO DAILY 90 days diclofenac sodium 3% 1 appl topical BID 30 days hydroxyzine HCl 25 mg PO BEDTIME 90 days multivitamin (Daily Multi-Vitamin tablet) 1 tab PO DAILY 90 days pantoprazole 40 mg PO DAILY 90 days sennosides (Senna Laxative) 8.6 mg PO BEDTIME sertraline 50 mg PO DAILY 30 days sumatriptan succinate 25 mg orally; 30 days Tobacco use date assessed: 11/04/24 Dental Screening Dental Screen Date: 11/04/24 Did you have a dental visit in the last 12 months?: Yes Did you have a dental problem in the last 6 months where you did not have access to dental care?: No Was dental information given to patient?: Patient has dentist HPI Annual Exam HPI Details Pateint is a 54-year-old female here today for an annual physical ? Patient's past medical history significant for major depressive disorder,, OCD, Anxiety, hyperlipidemia? iron deficiency anemia. .. Lumbar spine pain: He has started in physical therapy which has been helpful. Unfortunately fell recently due to a slip on ice which caused a bit more lower back pain. Overweight: Has been going to a weight loss clinic in spending 2000 dollars per 3 month trial of semaglutide. Has lost significant amount of weight since last office visit. Interestingly enough her fasting blood sugars have improved and her anemia has normalized. She has not been able to afford GLP 1 and insurance will not cover. She has stopped GLP 1 in her hunger has increased and weight gain has been noted.. She will consider an online option. CHRONIC MEDICAL CONDITIONS --> .. GERD:? Continues to have daily GERD symptoms.?? She reports pantoprazole 40 mg daily was with affective thus will continue this medication for now. .. Hyperlipidemia:? Continues on statin therapy without side effect. She reports she has stopped using statin therapy as of July of 2024. Most recent fasting lipid panel showing appropriate total cholesterol and LDL PLAN: Will recheck fasting lipid panel and if LDL above goal 130 will consider restarting statin therapy .. ? Iron deficiency anemia; most recent labs showing improved CBC. Major depressive disorder:? She has been more stressed as of late due to personal issues. She has been off of follow her psychiatric medication and is interested in getting back on SSRI therapy and talking to a mental health therapist again. COlONoScOPy: done 2020 normal--> Repeat 10 years. .. 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 Considering PCV-20 PFSH Medical History Acute respiratory disease Abnormal EKG Chronic upper abdominal pain COVID-19 vaccine series completed Sleep apnea Anemia Iron deficiency Constipation Lumbar spine pain Insomnia BRENTON (generalized anxiety disorder) Surgical History H/O colonoscopy History of extraction of renal calculus Family History Mother Diabetes Fibromyoma Anemia Depression Hypertension Asthma CVA (cerebral vascular accident) Father No problems noted. 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 1. Little interest or pleasure in doing things: not at all 2. Feeling down, depressed, or hopeless: several days 3. Trouble falling or staying asleep, or sleeping too much: not at all 4. Feeling tired or having little energy: several days 5. Poor appetite or overeating: not at all 6. Feeling bad about yourself - or that you are a failure or have let yourself o r your family down: several days 7. Trouble concentrating on things, such as reading the newspaper or watching television: not at all 8. Moving or speaking so slowly that other people could have noticed. Or the opposite - being so fidgety or restless that you have been moving around a lot more than usual: not at all 9. Thoughts that you would be better off or of hurting yourself in some way: not at all Total score: 3 Depression Screening Interpretation: Positive Depression Screening Follow-up: Existing condition Depression Screening Done: Yes 01517 - PHQ-9 Billing: Yes Source: Developed by Drs. Drake Farris, Joyce Acuna, Valente Klein and colleagues, with an educational leo from [employer]. Thrive Questionnaire Date Thrive assessed: 11/04/24 I am a: Patient What is your living situation today?: I have a steady place to live Within the past 12 months, did the food you bought not last and you didn't have the money to get more?: Never true Within the past 12 months, did you worry whether your food would run out before you got money to buy more?: Never true Do you have trouble paying for medicines?: Yes Do you have trouble getting transportation to medical appointments?: No Do you have trouble paying your heating and electricity bill?: Yes Do you have trouble taking care of your child, family member or friend?: No Do you have trouble with day-to-day activities such as bathing, preparing meals, shopping, managing finances, etc.?: No Are you currently unemployed and looking for a job?: Yes Are you interested in more education?: No Please select the resources that you would like help with: Paying for medicine and Utilities Currently or been in a relationship where the following occur: No concerns reported THRIVE Score: 1 AUDIT C Alcohol Use Questionnaire (AUDIT-C) 1. How often do you have a drink containing alcohol?: Monthly or less 2. How many drinks containing alcohol do you have on a typical day when you are drinking?: 1 or 2 3. How often do you have six or more drinks on one occasion?: Never Total Score: 1 BRENTON-7 AMB Questionnaire BRENTON-7 Date BRENTON - 7 assessed: 11/04/24 Feeling nervous, anxious, or on edge: 1 = Several days Not being able to stop or control worryin = More than half the days Worrying too much about different things: 2 = More than half the days Trouble relaxin = More than half the days Being so restless that it is hard to sit still: 0 = Not at all Becoming easily annoyed or irritable: 0 = Not at all Feeling afraid as if something awful might happen: 0 = Not at all Total BRENTON-7 score (0-4 normal; 5-9 mild; 10-14 moderate; 15-21 severe): 7 Source: Developed by Drs. Drake Farris, Joyce Acuna, Valente Klein and colleagues, with an educational leo from [employer]. BRENTON-7 Assessment Billing BRENTON-7 Assessment Tool: BRENTON-7 Assessment 10500 Review of Systems Const Denies body aches, Denies chills, Denies excessive sweating, Denies fatigue, Denies fever(s) and Denies headache(s) Eyes Denies blurry vision ENT Denies dysphagia, Denies vertigo, Denies dizziness, Denies headache(s), Denies hearing loss and Denies tinnitus Card Denies chest pain, Denies chest pain with activity, Denies syncope, Denies irreg ular heart rhythm and Denies dyspnea Resp Denies chest congestion, Denies cough, Denies hemoptysis, Denies dyspnea and Denies wheezing GI Denies abdominal pain, Denies melena, Denies hematochezia, Denies coffee ground emesis, Denies dysphagia, Denies diarrhea, Denies nausea and Denies vomiting Denies urinary frequency, Denies dysuria, Denies urinary hesitancy and Denies urinary urgency Musc Denies arthralgias, Denies limited range of motion, Denies muscle cramps and Denies muscle weakness Skin/Breast Denies rash and Denies skin ulcer Neuro Denies Abnormal speech present, Denies confusion, Denies vertigo, Denies dizziness, Denies syncope, Denies headache(s), Denies memory loss and Denies seizure-like activity Psych Denies anxiety, Denies confusion, Denies depression, Denies memory loss, Denies panic attacks and Denies paranoia Endo Denies excessive sweating, Denies fatigue, Denies flushing, Denies polydipsia and Denies polyuria Aller/Immun Denies wheezing Physical exam (Primary Care) Vital Signs: Last Vital Signs Pulse 73 11/04/24 13:34 BP 118/62 11/04/24 13:34 Pulse Ox 94 11/04/24 13:34 Oxygen Delivery Method Room Air 11/04/24 13:34 BMI result Body Mass Index 29.1 Tobacco/Smoking Status: Tobacco use Status Tobacco use date assessed 11/04/24 11/04/24 13:38 Patient Tobacco Use Status Former Tobacco user 11/04/24 13:38 Tobacco use type Cigarette 11/04/24 13:38 e-Cigarette/Vaping Use Never Used 11/04/24 13:38 PHQ-9: PHQ-9 Score PHQ-9: Total score 3 11/04/24 14:14 Depression Screening Interpretation: Positive Depression Screening Follow-up: Existing condition Thrive Assessment: Date of Thrive Assessment Date Thrive assessed 11/04/24 11/04/24 13:38 Currently or been in a relationship where the following occur: No concerns reported Const General: cooperative, comfortable, no acute distress, alert and awake; No confusion Orientation/consciousness: oriented to person, oriented to place, patient oriented x3 and No confusion HENMT Head: Yes normocephalic Ears: external ears normal and TM's normal bilaterally Face and sinus: No sinus tenderness Mouth: Normal oral and palatal mucosa present and tongue normal Teeth and gingiva: dentition normal and gingiva normal Throat: Yes posterior oropharynx normal, Yes tonsils normal and Yes uvula midline Eyes Conjunctivae: conjunctivae normal Sclerae: sclerae normal Pupils: Equal, round and reactive pupils present EOM: EOMs intact bilaterally Direct Ophthalmoscopy: No no photophobia Neck Neck: Yes no lymphadenopathy, No tender and Yes no JVD Thyroid: Thyroid normal Carotids: no bruits Chest Chest palpation & inspection: no tenderness Resp Effort & Inspection: normal respiratory effort, no audible wheezes, not labored and no stridor Auscultation: no crackles, no rales, no rhonchi and no wheezes Cardio Jugular venous distension: no JVD Rate: regular rate, not bradycardic and not tachycardic Rhythm: regular rhythm Bruits: no carotid bruits Peripheral pulses: Peripheral pulses 2+ throughout GI Inspection: Yes normal to inspection, No abdominal wall ecchymosis and No visible herniation Palpation (GI): Soft to palpation, nontender, no guarding, not rigid and No hepatosplenomegaly present Auscultation: normoactive bowel sounds General: Yes no CVA tenderness Back/Spine/Pelvis Back: no CVA tenderness and No back tenderness Cervical Spine: cervical ROM normal Thoracic/Lumbar Spine: thoracic and lumbar spine normal to inspection, straight leg raise negative bilaterally, No thoraco-lumbar ROM limited and No lumbar spinal tenderness Skin Lesions: no lesions Rashes: no rashes Wounds: no wounds Neuro General: oriented to person, oriented to place, patient oriented x3, CN's II-XI intact bilaterally and No confusion Cranial nerves: Yes Equal, round and reactive pupils present and Yes Normal accommodation reflex present Cognition (Neuro): normal cognition Speech: No Abnormal speech present Gait exam (Neuro): Normal gait present Motor exam (neuro): 5/5 motor strength present throughout Extrem Right upper extremity: full ROM; no cyanosis Left upper extremity: full ROM; no cyanosis Right lower extremity: no edema Left lower extremity: no edema Psych Appearance: grossly normal Mental Status: mental status grossly normal Affect: normal affect Attitude: cooperative Thought process: Normal thought process present Coding Level of Care Code Est Pt Prev Care 40-64y(91268) Diagnoses Annual physical exam Z00.00 Mixed hyperlipidemia E78.2 Hyperlipidemia type: mixed hyperlipidemia Lumbar spine pain M54.5 Gastroesophageal reflux disease with esophagitis without hemorrhage K21.00 Esophagitis bleeding: without hemorrhage Esophagitis presence: with esophagitis Additional Codes BRENTON-7 Assessment Billing - BRENTON-7 Assessment Tool: BRENTON-7 Assessment 65376 ([id number]) PHQ-9 - 90305 - PHQ-9 Billing: Yes ([id number]) Assessment & Plan Assessment & Plan (1) Annual physical exam: Code(s): Z00.00 - Encounter for general adult medical examination without abnormal findings Category: Medical Plan: As per HPI (2) HLD (hyperlipidemia): Code(s): E78.5 - Hyperlipidemia, unspecified Category: Medical Qualifiers: Hyperlipidemia type: mixed hyperlipidemia Qualified Code(s): E78.2 - Mixed hyperlipidemia Plan: Most recent lipid panel showing good control over total cholesterol and LDL. She has not been using her atorvastatin over the last 4 months.. We discuss possibly returning back to statin therapy to reduce cardiovascular risk due to her strong family history having coronary artery disease. (3) Lumbar spine pain: Code(s): M54.5 - Low back pain Category: Medical Plan: Recommendation for follow-up on physical therapy referral. Consideration of pain management evaluation for possible cortisone injection (4) GERD (gastroesophageal reflux disease): Code(s): K21.9 - Gastro-esophageal reflux disease without esophagitis Category: Medical Qualifiers: Esophagitis bleeding: without hemorrhage Esophagitis presence: with esophagitis Qualified Code(s): K21.00 - Gastro-esophageal reflux disease with esophagitis, without bleeding Plan: Re-prescribe pantoprazole. Advise possible OTC antacids for breakthrough symptoms. Consider referral for GI specialist for further evaluation. Orders: Orders Complete Blood Count no Diff Today E78.2 - Mixed hyperlipidemia Comprehensive [place]. Panel Fast Today E78.2 - Mixed hyperlipidemia Lipid Panel Today E78.2 - Mixed hyperlipidemia IRON PROFILE Today D50.9 - Iron deficiency anemia, unspecified, D64.9 - Anemia, unspecified Medications: New meloxicam 15 mg PO DAILY PRN 15 tabs 1RF pain (scale score 7-10) 15 days M47.816 - Spondylosis without myelopathy or radiculopathy, lumbar region
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
--- OUTSIDE RECORDS SUMMARY | 2024-11-04 16:35 | XMS_ITS | Clinical Summary ---
Author Organization [facility] Address [address] [place] [address] Phone Care Team Providers Care Fire [employer] Name Role Phone Bryce Abbott MD Primary Care Provider +1- [phone] Allergies No known active allergies Medications multivitamin (MULTIPLE VITAMINS ORAL) Take 1 tablet by mouth 1 (one) time each day. 3 Active aspirin 81 mg EC tablet Take 1 tablet (81 mg total) by mouth 1 (one) time each day. 4 Active atorvastatin (LIPITOR) 40 mg tablet Take 1 tablet (40 mg total) by mouth 1 (one) time each day. for 360 days. 2 Active cholecalcifero l (VITAMIN D-3) 50 mcg (2,000 unit) capsule Take 1 capsule (2,000 Units total) by mouth 1 (one) time each day. 4 Active pantoprazole (PROTONIX) 40 mg EC tablet Take 1 tablet (40 mg total) by mouth 2 (two) times a day. 2 Active senna (SENOKOT) 8.6 mg tablet Take 1 tablet (8.6 mg total) by mouth at bedtime. 3 Active SUMAtriptan (IMITREX) 25 mg tablet PLEASE SEE ATTACHED FOR DETAILED DIRECTIONS 3 Active zolpidem (AMBIEN) 5 mg tablet Take 1 tablet (5 mg total) by mouth at bedtime as needed for sleep. Max Daily Amount: 5 mg 4 Active conjugated estrogens (PREMARIN) vaginal cream Apply pea size nightly for 2 weeks and then apply 2 times a week ( Sunday an ) 30 g 3 5 Active phentermine 37.5 mg capsule PLEASE SEE ATTACHED FOR DETAILED DIRECTIONS 3 10/17/19 25 Discontinu ed(Therapy completed) Active Problems Problem Noted Date Diagnosed Date [...] Migraine 09/19/2011 Tension headache 04/28/2011 Anemia 04/04/2011 Encounters Date Type Department Care Team Description 10/17/2024 9:45 AM EST Office Visit Obstetrics & Gynecology - [address] [phone] Odette Rubi CNM Encounter for well woman exam with routine gynecological exam (Primary Dx); Screening breast examination; Screening for cervical cancer; Postmenopausal atrophic vaginitis from Last 3 Months Immunizations Name Administration Dates Next Due Influenza trivalent, 0.5mL, preservative free (Fluarix; FluLaval; Fluzone) ages 6mo and older (Afluria) 3 years and older 08/19/2014,06/09/2013,07/03/2011 [employer] SARS-CoV-2 COVID-19, mRNA, LNP-S, preservative free 10/27/2020 Surgical History Surgery Date Site/Laterality Comments KIDNEY STONE SURGERY PROCEDURE: MO NEPHROLITHOTOMY REMOVAL CALCULUS Medical History Medical History Date Comments Kidney stones 2008 DX:Kidney stones Overweight DX:Overweight Insomnia DX:Insomnia Anxiety [...] file Not on file Not on file Obstetrics History Para Term AB IAB SAB Ectopic Multiple Livin g Live Births 2 2 2 2 2 Date Outcome GA Total Labor Labor/2nd/3rd Weight Sex Type Anes PTL Nesha A1 A5 Name Clin 1986 Term F Vag-S pont Living 1990 Term M Vag-S pont Living Last Filed Vital Signs Vital Sign Reading [...] Mass Index 27.46 10/17/2024 9:39 AM EST Plan of Treatment Upcoming Encounters Date Type Department Care Team (Late st Contact Info) Description 11/26/2024 11:15 AM EDT [facility]ointment [facility] at [address] [phone] Health Maintenance Due Date Last Done Comments Hepatitis B Vaccines (1 of 3 - 19+ 3-dose series) 1989 Pneumococcal Vaccine: 50+ Years (1 of 1 - PCV) 01/02/2020 Cholesterol Screening (Lipid Panel) 08/19/2022 10/09/2013 Colorectal Cancer Screening: Colonoscopy 08/19/2022 Depression Screening 08/19/2022 HIV Screening 08/19/2022 Social Influencers of Health Screening 08/19/2022 Hypertension/CHF/CAD Annual BMP Blood Test 10/09/2023 03/15/2022 COVID-19 Vaccine ( season) 2024 07/24/2021, 11/20/2020, 10/27/2020 Breast Cancer Screening 11/25/2025 11/26/19 24, 03/23/2022, 12/12/2020, Additional history exists Cervical Cancer Screening: HPV 10/17/2029 10/17/2024, 03/15/2022 DTaP,Tdap,and Td Vaccines (3 - Td or Tdap) 11/16/2033 11/17/2023, 04/18/2018 Hepatitis C Screening Completed 03/26/2018 Zoster Vaccines Completed 03/15/2021, 10/07/2020 Influenza Vaccine Completed 09/17/2024, , 08/01/2022, Additional history exists HIB Vaccines Aged Out No longer eligi [...] patient's age to complete this topic Meningococcal B Vacine Aged Out No lo nger eligible based on patient's age to complete [...] Procedure Name Priority Date/Time Associated Diagnosis Comments PAP SMEAR Routine 10/17/2024 10:04 AM EST Encounter for well woman exam with routine gynecological exam Screening for cervical cancer HPV WITH REFLEX GENOTYPE Routine 10/17/2024 10:04 AM EST Encounter for well woman exam with routine gynecological exam Screening for cervical cancer [facility] SCREENING DIGITAL Routine 11/26/2023 9:50 AM EDT Encounter for screening mammogram for malignant neoplasm of breast ANNUAL BMP BLOOD TEST Routine 03/15/2022 HEPATITIS C SCREENING Routine 03/26/2018 LIPID PANEL Routine 10/09/2013 from Last 3 Months or Most Recently Relevant to Health Maintenance Results * HPV with reflex genotype (10/17/2024 10:04 AM EST) HPV Negative Negative LAB MICROBIOLOGY METHOD 10/20/2024 3:10 PM EST [facility] Brushing/Spatula Cervix uteri structure / Unknown 10/17/2024 10:04 AM EST 10/20/2024 6:05 AM EST Odette [facility] MOLECULAR DIAGNOSTICS ORD ERABLES Final Result [facility] [address] [place] [address], * Pap smear (10/17/2024 10:04 AM EST) Interpretation Negative for intraepithelial lesion or malignancy 10/21/2024 9:48 AM EST [facility] General Categorization Negative 10/21/2024 9:48 AM EST [facility] Other Findings Shift in hari suggestive of bacterial vaginosis 10/21/2024 9:48 AM EST [facility] Additional Information Partially obscuring blood and inflammation. 10/21/2024 9:48 AM EST [facility] Specimen Adequacy Satisfactory for evaluation, endocervical/horvath sformation zone component present 10/21/2024 9:48 AM EST [facility] Pap Methodology Liquid Based Pap Test 10/21/2024 9:48 AM EST [facility] Disclaimer The Pap test is a screening test which carries an inherent false negative rate. These test results should be correlated with the patient's clinical findings and history. This Pap test was processed using an automated screening system. Technical cytopathology services provided by [facility], at [address] [place] [address] (CLIA # [id number]/Emerson Tejada MD, Security Business Analyst.) 10/21/2024 9:48 AM [facility] [place] Console Pap Interpretation Reported 10/21/2024 9:48 AM [facility] Brushing/Spatula Cervix uteri structure / Unknown 10/17/2024 10:04 AM EST 10/20/2024 6:05 AM EST Odette Rubi [facility] CYTOLOGY ORDERABLES Final Result [facility] [place] [address] [place] [address], * ERIBERTO SCREENING DIGITAL (11/26/2023 9:50 AM EDT) Anatomical Region Laterality Modality Mammography 11/22/2023 11:0 6 AM EDT Narrative 11/26/2023 9:50 AM EDT [facility] Diagnostic Imaging Department [address] [place] [address] Patient: ??BROOKLYNN BARNETT ?/Age/Sex: 1970 - 53 - F Unit#: ??[id number] ? Location/Status: ??SPDIMAM/REG CLI ? Mnemonic/Ordering Site: ??DIGSC/SPMAM Ordering Physician: ??MYCHAL CASTILLO PA-C [facility] Screening Digital - 11/24/23 - 954 Report Status:Signed EXAM: [facility] Screening Digital EXAM DATE AND TIME: 11/24/2023 9:55 AM HISTORY: ??Annual screening COMPARISON: ??Multiple exams dating back to 2014 TECHNIQUE: Bilateral digital breast tomosynthesis was performed in the CC and MLO projections. Computer aided detection with Axentra 3D 3.1 was employed. TISSUE DENSITY: b. [...] Procedure Note Camacho Vines MD - 04/28/2024 [facility] Diagnostic Imaging Department [address] [place] [id number] Patient: BROOKLYNN BARNETT /Age/Sex: 1970 - 53 - F Unit#: [id number] Location/Status: SPDIMAM/REG CLI Mnemonic/Ordering Site: [facility] Ordering Physician: MYCHAL CASTILLO PA-C [facility] Screening Digital - 11/24/23 - 0955 Report Status:Signed EXAM: [facility] Screening Digital EXAM DATE AND TIME: 11/24/2023 9:55 AM HISTORY: Annual screening COMPARISON: Multiple exams dating back to 2014 TECHNIQUE: Bilateral digital breast tomosynthesis was performed in the CCand MLO projections. Computer aided detection with Axentra 3D 3.1was employed. TISSUE DENSITY: b. There [...] in 1 year. 3341F, 7025F Dictating Physician: CAMACHO VINES MD Electronically Signed by: CAMACHO VINES MD Dic Date/Time: 11/26/2348 Sign date/Time: 11/26/23 0950 us Mychal JACQUES IMMikhail BI PROCEDURES Final Res ult * Annual BMP Blood Test (03/15/2022) Annual BMP Blood Test Abstracted us Historical Provider HEALTH MAINTENANCE Final Result * Hepatitis C Screening (03/26/2018) Hepatitis C Screening Abstracted Historical Provider HEALTH MAINTENANCE Final Result * (ABNORMAL) Lipid panel (10/09/2013) LDL/HDL Ratio 3 0 - 4 Triglycerides 248(A) 0 - 150 mg/dL Cholesterol 187 0 - 200 mg/dL HDL 65 >=40 mg/dL LDL Cholesterol 73 0 - 100 mg/dL Blood Venous blood specimen / Unknown Historical Provider LAB BLOOD ORDERABLES Suzan l Result from Last 3 Months or Most Recently Relevant to Health Maintenance Insurance [facility] [employer] Addiction [employer] (ABAM) PLAN Care Teams [employer] Relationship Specialty Start Date End Date Bryce Abbott MD [facility] [address] [place] [address] [address] [place] [address] PCP - General Internal Medicine 10/15/24
== END 2024-11-04 14:15 | disposition home or self-care (01) ==
PROVIDERS: PCP Physician Assistant; Visit Provider Physician Assistant
DX: Z00.00 Encounter for general adult medical examination without abnormal findings (principal); E78.2 Mixed hyperlipidemia; M54.50 Low back pain, unspecified; K21.00 Gastro-esophageal reflux disease with esophagitis, without bleeding

== ENCOUNTER → 2024-11-04 13:28 | Outpatient (BNVA) | payer OTHER, SELFPAY | PROVIDERS: PCP Physician Assistant; Visit Provider Physician Assistant | DX: Z00.00 Encounter for general adult medical examination without abnormal findings (principal); E78.2 Mixed hyperlipidemia; M54.50 Low back pain, unspecified; K21.00 Gastro-esophageal reflux disease with esophagitis, without bleeding | CPT/HCPCS: 96127; 99396 ==

== ENCOUNTER 2024-12-18 15:15 | Outpatient (AMB) | payer OTHER, SELFPAY ==
--- NOTE | 2024-12-18 15:18 | A.OFFPC_ITS ---
Vital Signs 12/18/24 15:19 Height 5 ft 3 in Weight 164 lb 2 oz BMI 29.1 BP 100/64 Blood Pressure Location Rt brachial Position Sitting Pulse 71 Pulse Source Pulse Oximeter Temp 97.3 F Temp Source Temporal Artery Scan Pulse Oximetry (%) 94 Oxygen Delivery Method Room Air Intake Visit Reasons: gerd? Intake Note: Patient is here to follow up on GERD?. 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 per policy Accompanied by: Self / Same As Patient Allergies No Known Allergies Allergy (Verified 12/18/24 15:19) Tobacco use date assessed: 12/18/24 Dental Screening Dental Screen Date: 11/04/24 [facility] Medical History Acute respiratory disease Abnormal EKG Chronic upper abdominal pain COVID-19 vaccine series completed Sleep apnea Anemia Iron deficiency Constipation Lumbar spine pain Insomnia BRENTON (generalized anxiety disorder) Surgical History H/O colonoscopy History of extraction of renal calculus Family History Mother Diabetes Fibromyoma Anemia Depression Hypertension Asthma CVA (cerebral vascular accident) Father No problems noted. 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 Drake Farris, Joyce Acuna, Valente Klein and colleagues, with an educational leo from [email or web address]. Physical exam (Primary Care) Vital Signs: Last Vital Signs Temp 97.3 F 12/18/24 15:19 Pulse 71 12/18/24 15:19 BP 100/64 12/18/24 15:19 Pulse Ox 94 12/18/24 15:19 Oxygen Delivery Method Room Air 12/18/24 15:19 BMI result Body Mass Index 29.1 Tobacco/Smoking Status: Tobacco use Status Tobacco use date assessed 12/18/24 12/18/24 15:31 Patient Tobacco Use Status Former Tobacco user 12/18/24 15:31 Tobacco use type Cigarette 12/18/24 15:31 e-Cigarette/Vaping Use Never Used 12/18/24 15:31 Thrive Assessment: Date of Thrive Assessment Date Thrive assessed 11/04/24 12/18/24 15:31 Coding Level of Care Code Est Pt Level 4 (67129) Complex EM visit Add On G2211 Diagnoses Gastroesophageal reflux disease with esophagitis without hemorrhage K21.00 Esophagitis bleeding: without hemorrhage Esophagitis presence: with esophagitis Assessment & Plan Assessment & Plan (1) GERD (gastroesophageal reflux disease): Code(s): K21.9 - Gastro-esophageal reflux disease without esophagitis Category: Medical Qualifiers: Esophagitis bleeding: without hemorrhage Esophagitis presence: with esophagitis Qualified Code(s): K21.00 - Gastro-esophageal reflux disease with esophagitis, without bleeding Plan: Magic Mouth wash was added to the regimen. Advised to continue with Protonix. GI consult has been scheduled. Plan History of Present Illness The patient is a 54-year-old female presenting with gastroesophageal reflux disease (GERD) and migraine. For the past two weeks, she has been experiencing intense chest discomfort attributed to GERD symptoms, which escalate with food consumption. The self-administered pantoprazole has proven ineffective. She previously consulted with an ER, receiving an EKG and gallbladder ultrasound, both yielding unremarkable findings. Despite these interventions, symptoms persist unabated with abdominal pain extending toward the umbilicus. In the same period, the patient has battled a persistent migraine resistant to sumatriptan. This debilitating headache extends from the cephalic region into the cervical and dorsal areas, complicating her symptoms and diminishing functionality during work commitments. Attempts at pharmacological alleviation have been unsuccessful, necessitating a balance in addressing both migraine and GERD. 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 - Substance Use: Denies smoking and alcohol consumption. Review of Systems - Gastrointestinal: Reports heartburn, burping, and abdominal pain; Denies diarrhea and vomiting. - Neurological: Reports migraine headache; Denies associated nausea or vomiting with headache. Physical Exam General: Cooperative and healthy appearing Nutritional Appearance: Well nourished Orientation/consciousness: Patient oriented x3 Limitations: No limitations Head: Normal to inspection General: Appearance normal, both eyes and all related structures Neck: Normal visual inspection Chest: Normal palpation of entire chest wall Respiratory: N ormal respiratory effort Neurology: Patient oriented x3, reports persistent migraine headaches affecting the front, back, and neck. Results - Tests: Previous EKG and gallbladder ultrasound?unremarkable findings as reported by the patient. Plan A prescription for medication combining Melox and lidocaine was made to aid in managing GERD symptoms, emphasizing synergistic use with pantoprazole. Meanwhile, I arranged a referral to a fiber optic central office installer for further evaluation considering unresolved GERD symptoms. For migraine management, altering medication usage was recommended to prevent worsening GERD, focusing on non- pharmacological measures like adequate rest and tailored symptom management. Patient was informed and verbally consented to the use of an ambient scribe for clinic note documentation during this visit. Discussion Notes I discussed with the patient the management strategy for GERD with medications involving Melox and lidocaine, detailing its symptomatic numbing effects. Furthermore, I highlighted the rationale for referral to a fiber optic central office installer for a thorough review, possibly involving procedures like endoscopy. Concerning migraine treatment, the implications of sumatriptan on GERD were reviewed, guiding her towards adjusted management strategies to incorporate mitigation measures apt to her lifestyle constraints. Follow-up coordination with specialists and monitoring were encouraged. Patient Instructions - Continue pantoprazole as prescribed. - Use Melox and lidocaine combination as directed. - Schedule an appointment with a fiber optic central office installer as discussed. - Avoid sumatriptan for migraine management and monitor symptoms. - Prioritize rest and balanced management of symptoms at work. Orders: Referrals Gastroenterology Referral K21.00 - Gastro-esophageal reflux disease with esophagitis, without bleeding Medications: New Magic Mouthwash Diphen/Lido/Antacid 1:1:1 Lidocaine Viscous 2 % 80mL; diphenhydramine 12.5 mg/5 mL 80mL; aluminum-mag hydrox-simeth [id number]/5mL 80mL 15 mL PO TID 240 mL 0RF
[2024-12-18 15:19] VITALS: BP 100/64; PULSE 71; TEMP 36.3; O2SAT 94; BMI 29.1
--- OUTSIDE RECORDS SUMMARY | 2024-12-18 17:38 | XMS_ITS | Patient Health Record ---
Author Organization [facility] Address [address] [place] [id number] Care Team Providers Care Surveillance Systems Engineer Name Role Phone Mychal Maldonado Primary Care Provider Unavailab Víctor Dong Jr Unavailable Osman Delgado Unavailable Unavailable Allergies No Known Allergies Reason For Referral No Information Medications Medication SIG (Take, Route, Frequency, Duration) Notes Start Date End Date Status Ambien 10 MG Orally Once a day Active Multivitamin Active MiraLax (colon prep) 8.3 ounce ((238) grams mixed with Gatorade or Crystal Light orally begin at 5:00 p.m. the day before the procedure for 1 day 01/28/2021 Active Omeprazole 40 MG 1 capsule 30 minutes before morning meal Orally Once a day for 30 day(s) 12/20/2022 Active Escitalopram Oxalate 5 MG 1 tablet Orall y Once a day for 30 day(s) Active Lialda 1.2 GM 2 Orally Once a day for 30 days 02/09/2021 Active Atorvastatin Calcium 40 MG 1 tablet Oral ly Once a day for 30 day(s) Active Aspirin 81 81 MG 1 tablet Orally Once a day for 30 day(s) Active hydrOXYzine HCl 25 MG/ML 2 ml as needed Intramuscular every 6 hrs for 30 day(s) Active Zolpidem Tartrate 10 MG 1 tablet at bedt lelia as needed Orally Once a day Active buPROPion HCl ER (XL) 300 MG 1 tablet in the morning Orally Once a day for 30 day(s) Active Cyclobenzaprine HCl 5 MG 1 tablet at bed time as needed Orally Once a day for 30 day(s) Active Simethicone Ultra Strength 180 MG 1 capsule after meals and at bedtime as needed Orally Twice a day Active Immunizations Vaccine Route Administration Date Status Comme nts Influenza Unknown 06/10/2020 Administered Influenza Unknown 07/20/2021 Administered Influenza Unknown 08/01/2022 Administered Social History Tobacco Use: Social History Observation Description Date Details (start date - stop date) Former Smoker NA - NA Tobacco Use/Smoking Question Answer Notes Patient is a former smoker When did you stop smoking? 20 something years ag o Alcohol Screen Question Answer Notes Did you have a drink contain ing alcohol in the past year? Yes How often did you have a dri nk containing alcohol in the past year? Never (0 point) How many drinks did you have on a typical day when you were drinking in the past year? 1 or 2 drinks (0 point) Points 0 Interpretation Negative Problems Problem Type SNOMED Code ICD Code Onset Dates Problem Status W/U Status Risk Notes Problem 598651320 Colon cancer screening (Z12.11) Active confirmed Problem 148906442 Bloating (R14.0) Active confirmed Problem 497671746 Encounter for other preprocedural examination (Z01.818) Active confirmed Problem Gastroesophageal reflux disease (511674785) Gastroesophageal reflux disease (K21.9) Active confirmed Problem 926282302 Gastroesophageal reflux disease without esophagitis (K21.9) Active confirmed Problem 77531847 Constipation, unspecified constipation type (K59.00) Active confirmed Problem 6823026 Proctitis (K62.89) Active confirmed Problem 22846836 Chest pain, unspecified type (R07.9) Active confirmed Problem 800305291 Gastroesophageal reflux disease, unspecified whether esophagitis present (K21.9) Active confirmed Encounters Encounter Location Date Provider Diagnosis [facility] [address] [place] [address] 01/07/2024 Víctor Soni Jr Plan Of Treatment Future Test Test Name Order Date COLONOSCOPY 01/28/2021 UPPER GI ENDOSCOPY 08/17/2021 Insurance Providers Payer Name Payer Address Payer Phone Subscriber Number Group Number Insured Name Patient Relationship to Insured Coverage Start Date Coverage End Date [facility] [address] [place] [phone] [id number] SLOAN FITZPATRICK Self - patient is the insured Medical (General) History Medical History History ICD Code hx of kidney stones Gastroesophageal reflux dise ase, EGD 09/16/21, no Causey's esophagus or H. pylori Elevated cholesterol Atypical chest pain, [facility] iology, Dr. Alfonso Colonoscopy 02/04/21, mild pr octitis, treated with 8 weeks of mesalamine. Ten-year followup Surgical History Surgery Date(Month/Year) kidney stones Hospitalization History Reason Date(Month/Year)
--- OUTSIDE RECORDS SUMMARY | 2024-12-18 17:38 | XMS_ITS | Clinical Summary ---
Author Organization [facility] Address [address] [place] [address] Phone Care Team Providers Care Maintenance Mechanic Telephone Name Role Phone Mychal Maldonado Primary Care Provider [phone] Allergies No known active allergies Medications multivitamin [...] each day. for 360 days. 2 Active cholecalciferol (VITAMIN D-3) 50 mcg (2,000 [...] an ) 30 g 3 5 Active dexAMETHasone (DECADRON) 4 mg tablet Take 1 tablet (4 mg total) by mouth 2 (two) times a day for 3 days. 6 each 5 Active butalbital-acet aminophen-caffe ine (FIORICET, ESGIC) 50-325-40 mg per tablet Take 1 tablet by mouth every 6 (six) hours if needed for headaches for up to 3 days. 15 tablet 5 12/10/19 25 Active Problems Problem Noted Date Diagnosed Date [...] Encounters Date Type Department Care Team Description 12/06/2024 2:23 PM EDT - 12/06/2024 7:10 PM EDT Emergency [facility] Emergency [address] [place] [phone] Law Wyman MD Migraine without aura and without status migrainosus, not intractable (Primary Dx); Gastric reflux syndrome Discharge Disposition: Home or Self Care 11/26/2024 11:03 AM EDT - 11/26/2024 11:59 PM EDT [facility] [address] [phone] Encounter for well woman exam with routine gynecological exam; Screening breast examination Discharge Disposition: Home or Self Care 10/17/2024 9:45 AM EST Office Visit Obstetrics & Gynecology - [address] [phone] Odette Rubi CNM Encounter for well woman [...] Date Site/Laterality Comments KIDNEY STONE SURGERY PROCEDURE: MA NEPHROLITHOTOMY REMOVAL CALCULUS Medical History Medical History [...] = 0.6 oz pur e alcohol) Comments No Sex and Gender Information Value Date Recorded Sex Assigned at Female 11/25/2024 4:17 PM EDT Legal Sex Female 3:10 PM EST Gender Identity Female 12/06/2024 5:38 PM EDT Sexual Orientation Straight 12/06/2024 5: 38 PM EDT Occupation Industry Job Start Date Job End [...] Sign Reading Time Taken Comments Blood Pressure 130/82 12/06/2024 6:14 PM EDT Pulse 70 12/06/2024 6:14 PM EDT Temperature 37 ??C (98.6 ??F) 12/06/2024 6:14 PM EDT Respiratory Rate 16 12/06/2024 6:14 PM EDT Oxygen Saturation 94% 12/06/2024 6:14 PM EDT Inhaled Oxygen Concentration - - Weight 76.2 kg (168 lb) 12/06/2024 12:55 PM EDT Height 160 cm (5' 3 ) 12/06/2024 12:55 PM EDT Body Mass Index 29.76 12/06/2024 12:55 PM EDT Plan of Treatment Health Maintenance Due Date Last Done Comments Hepatitis B Vaccines (1 of 3 - 19+ 3-dose series) 1989 Pneumococcal Vaccine: 50+ Years (1 of 1 - PCV) 01/02/2020 Cholesterol Screening (Lipid Panel) 08/19/2022 10/09/2013 Colorectal Cancer Screening: Colonoscopy 08/19/2022 Depression Screening 08/19/2022 HIV Screening 08/19/2022 Social Influencers of Health Screening 08/19/2022 COVID-19 Vaccine ( season) 2024 07/24/2021, 11/20/2020, 10/27/2020 Hypertension/CHF/CAD Annual BMP Blood Test 12/06/2025 12/06/2024, 03/15/2022 Breast Cancer Screening 11/26/2026 11/27/19 25, 11/26/2023, 03/23/2022, Additional history exists Cervical Cancer Screening: HPV [...] age to complete this topic Meningococcal B Vaccine Aged Out No l onger eligible based on patient's age to complete [...] Procedure Name Priority Date/Time Associated Diagnosis Comments ECG ANNOTATED 12/07/2024 XR HIP 2-3 VIEWS RIGHT STAT 12/06/2024 5:14 PM EDT US ABDOMEN LIMITED STAT 12/06/2024 5: 12 PM EDT ECG 12-LEAD STAT 12/06/2024 3:40 PM EDT XR CHEST 2 VIEWS STAT 12/06/2024 3:27 PM EDT TROPONIN I HIGH SENSITIVITY STAT 12/06/2024 2:28 PM EDT ECG 12-LEAD STAT 12/06/2024 2:22 PM EDT CBC WITH AUTO DIFFERENTIAL STAT 12/06/2024 1:27 PM EDT B-TYPE NATRIURETIC PEPTIDE STAT 12/06/2024 1:27 PM EDT MAGNESIUM STAT 12/06/2024 1:27 PM EDT LIPASE STAT 12/06/2024 1:27 PM EDT COMPREHENSIVE METABOLIC PANEL STAT 12/06/2024 1:27 PM EDT CBC AND DIFFERENTIAL STAT 12/06/2024 1:27 PM EDT TROPONIN I HIGH SENSITIVITY STAT 12/06/2024 1:27 PM EDT MG MAMMO DIGITAL SCREENING W YOMI BILAT Routine 11/26/2024 11:49 AM EDT Encounter for well woman exam with routine gynecological exam Screening breast examination PAP SMEAR Routine 10/17/2024 10:04 AM EST Encounter for well woman exam with routine gynecological exam Screening for cervical cancer HPV WITH REFLEX GENOTYPE Routine 10/17/2024 10:04 AM EST Encounter for well woman exam with routine gynecological exam Screening for cervical cancer HM HEPATITIS C SCREENING Routine 03/26/2018 LIPID PANEL Routine 10/09/2013 from Last 3 Months or Most Recently Relevant to Health Maintenance Results * ECG-Annotated (12/07/2024) us Provider Onbase MD ECG ORDERABLES Final Result * XR Hip 2-3 Views Right (12/06/2024 5:14 PM EDT) Anatomical Region Laterality Modality Lower Extremities, Hip Right Radiograp hic Imaging 12/07/2024 8:30 AM EDT Impressions 12/07/2024 8:33 AM EDT No acute findings. There is evidence of calcific tendinitis of the hips bilaterally. No bony abnormality is demonstrated. Code 59952 -------- FINAL REPORT -------- Dictated By: Ji Ayon Dictated Date: 12/07/2024 08:30 ET Assigned Physician: Ji Ayon Reviewed and Electronically Signed By: Ji Ayon Signed Date: 12/07/2024 08:33 ET Workstation ID: [id number] Transcribed By: Self Edit Transcribed Date: 12/07/2024 08:30 ET Narrative 12/07/2024 8:33 AM EDT HISTORY: The patient is a 54-year-old female with right hip pain following a fall. FINDINGS: AP radiograph of the pelvis, along with coned-down AP and external rotation-abduction views of the right hip, are obtained. The study demonstrates no fracture, dislocation, osteolytic or osteoblastic lesion, or other bony abnormality. There are soft tissue calcifications adjacent to greater trochanters of the femurs bilaterally, consistent with calcific tendinitis. There is irregular calcification in the pelvis overlying the sacrum consistent with a calcified uterine leiomyoma, as definitively demonstrated on CT scan of the abdomen and pelvis performed 07/05/2021. Procedure Note Ji Ayon MD - 12/07/2024 HISTORY: The patient is a 54-year-old female with right hip pain followinga fall. FINDINGS: AP radiograph of the pelvis, along with coned-down AP andexternal rotation-abduction views of the right hip, are obtained. Thestudy demonstrates no fracture, dislocation, osteolytic or osteoblasticlesion, or other bony abnormality. There are soft tissue calcificationsadjacent to greater trochanters of the femurs bilaterally, consistent withcalcific tendinitis. There is irregular calcification in the pelvisoverlying the sacrum consistent with a calcified uterine leiomyoma, asdefinitively demonstrated on CT scan of the abdomen and pelvis nplhadhqu69/26/2021. IMPRESSION: No acute findings. There is evidence of calcific tendinitis of the hipsbilaterally. No bony abnormality is demonstrated. Code 33837 -------- FINAL REPORT -------- Dictated By: Ji Ayon Dictated Date: 12/07/2024 08:30 ET Assigned Physician: Ji Ayon Reviewed and Electronically Signed By: Ji Ayon Signed Date: 12/07/2024 08:33 ET Workstation ID: [id number] Transcribed By: Self Edit Transcribed Date: 12/07/2024 08:30 ET us Law Wyman MD IMG XR PROCEDURES Final Result * US Abdomen Limited (12/06/2024 5:12 PM EDT) Anatomical Region Laterality Modality Body Ultrasound 12/06/2024 5:44 PM EDT Impressions 12/06/2024 5:44 PM EDT Impression: Unremarkable right upper quadrant ultrasound. This document has been electronically signed by: Karel Mueller MD on 12/06/2024 17:44:46 Narrative 12/06/2024 5:44 PM EDT INDICATION: Possible cholelithiasis US limited to right upper quadrant Comparison: None Findings: Liver is normal size and reveals homogeneous echotexture. No focal hepatic lesions. No intrahepatic ductal dilatation. Right lobe length measures 11.9 cm. Portal vein reveals hepatopetal flow. Common bile duct measures 3 mm. Gallbladder appears unremarkable. No sonographic Black's sign. Right kidney is normal texture. No hydronephrosis. Right renal length is 9.1 cm. Procedure Note Karel Mueller MD - 12/06/2024 INDICATION: Possible cholelithiasis US limited to right upper quadrant Comparison: None Findings: Liver is normal size and reveals homogeneous echotexture. No focalhepatic lesions. No intrahepatic ductal dilatation. Right lobe length measures 11.9 cm. Portal vein reveals hepatopetal flow. Common bile duct measures 3 mm. Gallbladder appears unremarkable. No sonographic Black's sign. Right kidney is normal texture. No hydronephrosis. Right renal length is 9.1 cm. IMPRESSION: Impression: Unremarkable right upper quadrant ultrasound. This document has been electronically signed by: Karel Mueller MD on 12/06/2024 17:44:46 us Law Wyman MD IMG US PROCEDURES Final Result * ECG 12 lead (12/06/2024 3:40 PM EDT) Only the most recent of2 resultswithin the time period is included. Ventricular Rate ECG 61 BPM GEMUSE Atrial Rate 61 BPM GEMUSE P-R Interval 166 ms GEMUSE QRS Duration 86 ms GEMUSE Q-T Interval 426 ms GEMUSE QTc 428 ms GEMUSE P Wave [place] -4 degrees GEMUSE R [place] -12 degrees GEMUSE T [place] 15 degrees GEMUSE ECG Interpretation Normal sinus rhythm Moderate voltage criteria for LVH, may be normal variant ( R in aVL , Ashu product ) Borderline ECG When compared with ECG of 06-DEC-2024 14:22, (unconfirmed) No significant change was found Confirmed by FRANK ANTHONY ([id number]) on 12/07/2024 7:55:26 AM GEMUSE 12/06/2024 3:40 PM EDT 12/07/2024 7:55 AM EDT Nani Gabriel DO ECG ORDERABLES Final Res ult GEMUSE * XR Chest 2 Views (12/06/2024 3:27 PM EDT) Anatomical Region Laterality Modality Body Radiographic Jackie ging 12/06/2024 3:35 PM EDT Impressions 12/06/2024 3:36 PM EDT No evidence of active pulmonary disease. No significant change from the prior study. [id number] -------- FINAL REPORT -------- Dictated By: Joss Jenkins Dictated Date: 12/06/2024 15:35 ET Assigned Physician: Joss Jenkins Reviewed and Electronically Signed By: Joss Jenkins Signed Date: 12/06/2024 15:36 ET Workstation ID: [id number] Transcribed By: Self Edit Transcribed Date: 12/06/2024 15:35 ET Narrative 12/06/2024 3:36 PM EDT INDICATION: Chest pain FINDINGS: Two views of the chest were obtained. Compared to multiple prior studies most recent from July 14, 2021. Lung siegel are clear. Cardiomediastinal silhouette is normal in size and shape. Bony structures are within normal limits for the patient's age. Procedure Note Joss Jenkins MD - 12/06/2024 INDICATION: Chest pain FINDINGS: Two views of the chest were obtained. Compared to multiple priorstudies most recent from July 14, 2021. Lung siegel are clear. Cardiomediastinal silhouette is normal in size and shape. Bony structures are within normal limits for the patient's age. IMPRESSION: No evidence of active pulmonary disease. No significant change from theprior study. [id number] -------- FINAL REPORT -------- Dictated By: Joss Jenkins Dictated Date: 12/06/2024 15:35 ET Assigned Physician: Joss Jenkins Reviewed and Electronically Signed By: Joss Jenkins Signed Date: 12/06/2024 15:36 ET Workstation ID: [id number] Transcribed By: Self Edit Transcribed Date: 12/06/2024 15:35 ET Nani Gabriel DO IMG XR PROCEDURES Final R esult * Troponin I high sensitivity (12/06/2024 2:28 PM EDT) Only the most recent of2 resultswithin the time period is included. [facility] High Sensitivity Troponin I 3 <=54 ng/L LAB CHEMISTRY METHOD 12/06/2024 3:54 PM EDT [facility] Blood Venous blood specimen / Unknown Venipuncture / Unknown 12/06/2024 2:28 PM EDT 12/06/2024 3:16 PM EDT Narrative [facility] - 12/06/2024 3:54 PM EDT High levels of biotin in samples may falsely decrease hsTroponin values. ??Use caution when interpreting hsTroponin results in patients taking biotin who exhibit renal impairment (eGFR <60) or in patients taking more than 20 mg/day of biotin. Nani Gabriel DO LAB BLOOD ORDERABLES Suzan l Result [facility] [address] [place] [address], [place] [phone] * (ABNORMAL) CBC auto differential (12/06/2024 1:27 PM EDT) [facility] WBC 7.3 4.8 - 10.8 K/[facility] LAB HEMETOLOGY METHOD 12/06/2024 1:44 PM EDT [facility] RBC 4.90(H) 3.80 - 4.80 M/mcL LAB HEMETOLOGY METHOD 12/06/2024 1:44 PM EDT [facility] Hemoglobin 13.1 11.5 - 16.0 g/dL LAB HEMETOLOGY METHOD 12/06/2024 1:44 PM [facility] Hematocrit 41.8 35.0 - 47.0 % LAB HEMETOLOGY METHOD 12/06/2024 1:44 PM [facility] MCV 84.6 79.0 - 98.0 FL LAB HEMETOLOGY [facility]24 [facility] MCH 26.5(L) 27.0 - 32.0 pcg LAB HEMETOLOGY METHOD 12/06/2024 1:44 PM [facility] MCHC 31.3(L) 32.0 - 37.0 g/dL LAB HEMETOLOGY METHOD 12/06/2024 1:44 PM [facility] RDW 13.2 11.0 - 15.0 % LAB HEMETOLOGY METHOD 12/06/2024 1:44 PM [facility] Platelets 213 130 - 400 K/mcL LAB HEMETOLOGY METHOD 12/06/2024 1:44 PM [facility] MPV 10.4 7.0 - 11.0 FL LAB HEMETOLOGY METHOD 12/06/2024 1:44 PM [facility] NRBC 0.0 <1.0 % LAB HEMETOLOGY METHOD 12/06/2024 1:44 PM [facility] NRBC Absolute 0.00 <0.10 K/mcL LAB HEMETOLOGY METHOD 12/06/2024 1:44 PM [facility] Neutrophils Relative 65.8 % LAB HEMETOLOGY METHOD 12/06/2024 1:44 PM [facility] Lymphocytes Relative 25.4 % LAB HEMETOLOGY METHOD 12/06/2024 1:44 PM EDT [facility] Monocytes Relative 6.5 % LAB HEMETOLOGY METHOD 12/06/2024 1:44 PM EDT [facility] Eosinophils Relative 1.7 % LAB HEMETOLOGY METHOD 12/06/2024 1:44 PM EDT [facility] Basophils Relative 0.3 % LAB HEMETOLOGY METHOD 12/06/2024 1:44 PM EDT [facility] Immature Granulocytes Relative 0.3 % LAB HEMETOLOGY METHOD 12/06/2024 1:44 PM EDT [facility] Neutrophils Absolute 4.79 1.50 - 7.00 K/mcL LAB HEMETOLOGY METHOD [facility]/06[facility]2024 [facility] Lymphocytes Absolute 1.85 1.00 - 5.00 K/mcL LAB HEMETOLOGY METHOD 12/06/2024 1:44 PM EDT [facility] Monocytes Absolute 0.47 0.20 - 1.00 K/mcL LAB HEMETOLOGY METHOD 12/06/2024 1:44 PM EDT [facility] Eosinophils Absolute 0.12 0.00 - 0.50 K/mcL LAB HEMETOLOGY METHOD 12/06/2024 1:44 PM [facility] Basophils Absolute 0.02 0.00 - 0.20 K/mcL LAB HEMETOLOGY METHOD 12/06/2024 1:44 PM EDT [facility] Immature Granulocytes Absolute 0.02 0.00 - 0.03 K/mcL LAB HEMETOLOGY METHOD 12/06/2024 1:44 PM [facility] Blood Venous blood specimen / Unknown Venipuncture / Unknown 12/06/2024 1:27 PM EDT 12/06/2024 1:39 PM EDT Nani Gabriel DO LAB BLOOD ORDERABLES Suzan l Result Performing Organization Address City/[facility]/ZIP Co de Phone Number [facility] [address] [place] [address], * B-type natriuretic peptide (12/06/2024 1:27 PM EDT) BNP 31 <=100 pcg/mL LAB CHEMISTRY METHOD 12/06/2024 2:23 PM EDT [facility] Blood Venous blood specimen / Unknown Venipuncture / Unknown 12/06/2024 1:27 PM EDT 12/06/2024 1:39 PM EDT Nani Burns Olmansergo Gabriel DO LAB BLOOD ORDERABLES Suzan l Result Performing Organization Address [facility] Co de Phone Number [facility] [address] [place] [address], * Magnesium (12/06/2024 1:27 PM EDT) Magnesium 1.9 1.9 - 2.6 mg/dL LAB CHEMISTRY METHOD 12/06/2024 2:12 PM EDT [facility] Blood Venous blood specimen / Unknown Venipuncture / Unknown 12/06/2024 1:27 PM EDT 12/06/2024 1:39 PM EDT Nani Burns Olman Harvey DO LAB BLOOD ORDERABLES Suzan l Result Performing Organization Address [facility]/ZIP Co de Phone Number [facility] [address] [place] [address], [place] [phone] * Lipase (12/06/2024 1:27 PM EDT) Lipase 43 13 - 75 unit/L LAB CHEMISTRY METHOD 12/06/2024 2:12 PM EDT [facility] Blood Venous blood specimen / Unknown Venipuncture / Unknown 12/06/2024 1:27 PM EDT 12/06/2024 1:39 PM EDT us Nani Gabriel DO LAB BLOOD ORDERABLES Suzan l Result [facility] [address] [place] [address], [place] [phone] * (ABNORMAL) Comprehensive metabolic panel (12/06/2024 1:27 PM EDT) Pathologist [facility] Sodium 143 133 - 145 mmol/L LAB CHEMISTRY METHOD 12/06/2024 2:12 PM EDT [facility] Potassium 4.0 3.5 - 5.5 mmol/L LAB CHEMISTRY METHOD 12/06/2024 2:12 PM [facility] Chloride 109 96 - 110 mmol/L LAB CHEMISTRY METHOD 12/06/2024 2:12 PM [facility] CO2 26 21 - 32 mmol/L LAB CHEMISTRY METHOD 12/06/2024 2:12 PM [facility] Anion Gap 8 3 - 11 LAB CHEMISTRY METHOD 12/06/2024 2:12 PM [facility] Glucose 101(H) 70 - 100 mg/dL LAB CHEMISTRY METHOD 12/06/2024 2:12 PM [facility] BUN 11 5 - 25 mg/dL LAB CHEMISTRY METHOD 12/06/2024 2:12 PM [facility] Creatinine 0.61 0.50 - 1.10 mg/dL LAB CHEMISTRY METHOD 12/06/2024 2:12 PM [facility] eGFR 106 >=60 mL/min/1. 73m2 LAB CHEMISTRY METHOD 12/06/2024 2:12 PM [facility] Comment:Calculation based on the??Chronic Kidney Disease Epidemiology Collaboration (CKD-EPI) equation refit??without adjustment for race. BUN/Creatinine Ratio 18.0 LAB CHEMISTRY METHOD 12/06/2024 2:12 PM EDT [facility] Calcium 9.6 8.5 - 10.5 mg/dL LAB CHEMISTRY METHOD 12/06/2024 2:12 PM EDT [facility] AST (SGOT) 17 10 - 42 unit/L LAB CHEMISTRY METHOD 12/06/2024 2:12 PM EDT [facility] ALT (SGPT) 21 10 - 60 unit/L LAB CHEMISTRY METHOD 12/06/2024 2:12 PM EDT [facility] Alkaline Phosphatase 100 42 - 121 unit/L LAB CHEMISTRY METHOD 12/06/2024 2:12 PM EDT [facility] Total Protein 7.2 6.0 - 8.0 g/dL LAB CHEMISTRY METHOD 12/06/2024 2:12 PM EDT [facility] Albumin 3.8 3.2 - 5.0 g/dL LAB CHEMISTRY METHOD 12/06/2024 2:12 PM EDT [facility] Total Bilirubin 0.5 0.0 - 1.4 mg/dL LAB CHEMISTRY METHOD 12/06/2024 2:12 PM EDT [facility] Blood Venous blood specimen / Unknown Venipuncture / Unknown 12/06/2024 1:27 PM EDT 12/06/2024 1:39 PM EDT us Nani Gabriel DO LAB BLOOD ORDERABLES Suzan l Result [facility] [address] [place] [address], [place] [phone] * MG Mammo Digital Screening w Yomi bilat (11/26/2024 11:49 AM EDT) Anatomical Region Laterality Modality Breast Bilateral Mammography 11/26/2024 4:00 PM EDT Impressions 11/26/2024 4:12 PM EDT No evidence of breast malignancy. BI-RADS CATEGORY: 1 - NEGATIVE RECOMMENDATION: Screening bilateral mammogram is recommended in 1 year. Mammo Location: [facility], [address] [place] [address], [id number], . -------- FINAL REPORT -------- Dictated By: Veronica Akhtar Dictated Date: 11/26/2024 16:00 ET Assigned Physician: Veronica Akhtar Reviewed and Electronically Signed By: Veronica Akhtar Signed Date: 11/26/2024 16:12 ET Workstation ID: [id number] Transcribed By: Self Edit Transcribed Date: 11/26/2024 16:00 ET Narrative 11/26/2024 4:12 PM EDT CLINICAL: 54 years old, Female, routine annual exam. COMPARISON: 11/24/2023, 03/22/2022, 12/11/2020 and 03/24/2019 ?? TECHNIQUE: Bilateral MLO and CC views were obtained digitally with 3-D mammogram (digital breast tomosynthesis). Computer-aided detection was utilized in evaluation of this exam (CAD). FINDINGS: There is no evidence of suspicious mass or architectural distortion. ??No worrisome calcifications are evident. ??There has been no significant change from prior exam(s). ?? BREAST DENSITY: B - There are scattered areas of fibroglandular density. Procedure Note Veronica Akhtar MD - 11/26/2024 CLINICAL: 54 years old, Female, routine annual exam. COMPARISON: 11/24/2023, 03/22/2022, 12/11/2020 and 03/24/2019 TECHNIQUE: Bilateral MLO and CC views were obtained digitally with 3-Dmammogram (digital breast tomosynthesis). Computer-aided detection wasutilized in evaluation of this exam (CAD). FINDINGS: There is no evidence of suspicious mass or architectural distortion. Noworrisome calcifications are evident. There has been no significantchange from prior exam(s). BREAST DENSITY: B - There are scattered areas of fibroglandular density. IMPRESSION: No evidence of breast malignancy. BI-RADS CATEGORY: 1 - NEGATIVE RECOMMENDATION: Screening bilateral mammogram is recommended in 1 year. Mammo Location: [facility], [address] [place] [address], [phone], . -------- FINAL REPORT -------- Dictated By: Veronica Akhtar Dictated Date: 11/26/2024 16:00 ET Assigned Physician: Veronica Akhtar Reviewed and Electronically Signed By: Veronica Akhtar Signed Date: 11/26/2024 16:12 ET Workstation ID: [id number] Transcribed By: Self Edit Transcribed Date: 11/26/2024 16:00 ET Odette KAPOOR IMG BI PROCEDURES Final Resul t * HPV with reflex genotype (10/17/2024 10:04 AM EST) HPV Negative Negative LAB MICROBIOLOGY METHOD 10/20/2024 3:10 PM EST [facility] Brushing/Spatula Cervix uteri structure / Unknown 10/17/2024 10:04 AM EST 10/20/2024 6:05 AM EST Odette Rubi [facility] MOLECULAR DIAGNOSTICS ORD ERABLES Final Result [facility] [address] [place] [address], * Pap smear (10/17/2024 10:04 AM EST) Interpretation Negative for intraepithelial lesion or malignancy 10/21/2024 9:48 AM EST [facility] General Categorization Negative 10/21/2024 9:48 AM EST [facility] Other Findings Shift in hari suggestive of bacterial vaginosis 10/21/2024 9:48 AM EST [facility] Additional Information Partially obscuring blood and inflammation. 10/21/2024 9:48 AM EST [facility] Specimen Adequacy Satisfactory for evaluation, endocervical/horvath sformation zone component present 10/21/2024 9:48 AM EST [facility] Pap Methodology Liquid Based Pap Test 10/21/2024 9:48 AM EST [facility] Disclaimer The Pap test is a screening test which carries an inherent false negative rate. These test results should be correlated with the patient's clinical findings and history. This Pap test was processed using an automated screening system. Technical cytopathology services provided by [facility], at [address] [place] [address] (CLIA # [id number]/Emerson Tejada MD, Aluminum Welder.) 10/21/2024 9:48 AM [facility] Console Pap Interpretation Reported 10/21/2024 9:48 AM [facility] Brushing/Spatula Cervix uteri structure / Unknown 10/17/2024 10:04 AM EST 10/20/2024 6:05 AM EST Odette Rubi [facility] CYTOLOGY ORDERABLES Final Result [facility] [address] [place] [address], * Hepatitis C Screening (03/26/2018) [facility] Hepatitis C Screening Abstracted Historical Provider HEALTH MAINTENANCE Final Result * (ABNORMAL) Lipid panel (10/09/2013) [facility] LDL/HDL Ratio 3 0 - 4 Triglycerides 248(A) 0 - 150 mg/dL Cholesterol 187 0 - 200 mg/dL HDL 65 >=40 mg/dL LDL Cholesterol 73 0 - 100 mg/dL Blood Venous blood specimen / Unknown Historical Provider LAB BLOOD ORDERABLES Suzan l Result from Last 3 Months or Most Recently Relevant to Health Maintenance Insurance [facility] [employer] Care Teams Maintenance Mechanic Telephone Relationship Specialty Start Date End Date Mychal Maldonado PA [address] [place] [phone] PCP - General Physician Personnel Security Assistant 12/06/24
--- OUTSIDE RECORDS SUMMARY | 2024-12-18 17:38 | XMS_ITS ---
Author Organization [facility] Address [address] [place] [address] Care Team Providers Care Assurance Manager Insurance Name Role Phone Mychal Maldonado Primary Care Provider Unavailab Víctor Dong Jr Unavailable Osman Delgado Unavailable Unavailable REASON FOR VISIT gerd Encounters Encounter Location Date Provider Diagnosis [facility] [address] [place] [phone] 12/31/2023 Víctor Soni Jr Plan Of Treatment No Information Progress Notes * SLOAN FITZPATRICKDOB: 0 (54 yo F)Acc No.[id number]:12/31/2023 Progress Notes Patient:?SLOAN FITZPATRICK Provider:?Víctor Soni MD :1970???Age:53 Y???Sex:Female D ate:12/31/2023 Address:[address] [place], [place] [phone] Pcp:Mychal Maldonado Subjective: * Chief Complaints: * ???1. Gerd. * Medical History:? Objective: * Vitals:? Assessment: Plan: * Treatment: * * The named appointment provid er may or may not be the originator of this progress note, and it is not deemed complete until electronically signed by the appointment provider. Sign off status: Pending * Provider:?Víctor Soni MD Date:?0 12/31/2023 Generated for Clair umaña/Marla/eTransmitting on:?12/18/2024 05:38 PM EDT
--- OUTSIDE RECORDS SUMMARY | 2024-12-18 17:38 | XMS_ITS ---
Author Organization [facility] Address [address] [place] [address] Care Team Providers Care Network Project Manager Name Role Phone Mychal Maldonado Primary Care Provider Unavailab Víctor Dong Jr Unavailable Osman Delgado Unavailable Unavailable REASON FOR VISIT Patient presents today for gerd Encounters Encounter Location Date Provider Diagnosis [facility] [address] [place] [phone] 01/07/2024 Víctor Soni Jr Plan Of Treatment No Information Progress Notes * SLOAN FITZPATRICKDOB: 0 (54 yo F)Acc No.[id number]:01/07/2024 Progress Notes Patient:?SLOAN FITZPATRICK Provider:?Víctor Soni MD :1970???Age:54 Y???Sex:Female D ate:01/07/2024 Address:[address] [place], [place] [phone] Pcp:Mychal Maldonado Subjective: * Chief Complaints: * ???1. Patient presents today for gerd. * Medical History:? Objective: * Vitals:? Assessment: Plan: * Treatment: * * The named appointment provid er may or may not be the originator of this progress note, and it is not deemed complete until electronically signed by the appointment provider. Sign off status: Pending * Provider:?Víctor Soni MD Date:?0 01/07/2024 Generated for Clair umaña/Marla/eTransmitting on:?12/18/2024 05:38 PM EDT
--- OUTSIDE RECORDS SUMMARY | 2024-12-18 17:39 | XMS_ITS ---
Author Organization [facility] Address [address] [place] [address] Care Team Providers Care Electrical Equipment Technician Name Role Phone Mychal Maldonado Primary Care Provider Unavailab Víctor Dong Jr Unavailable Osman Delgado Unavailable Unavailable REASON FOR VISIT Pt no show Encounters Encounter Location Date Provider Diagnosis [facility] [address] [place] [phone] 01/07/2024 Víctor Soni Jr Plan Of Treatment No Information Progress Notes * FITZPATRICKSLOAN AlbrightDOB: 0 (54 yo F)Acc No.[id number]:01/07/2024 Patient:?SLOAN FITZPATRICK :1970???Age:54 Y???Sex:Female Address:[address] [place] [address], [address] Subjective: * Chief Complaints: * ???Pt no show * Medical History:? * Surgical History:? * Hospitalization/Major Diagno stic Procedure:? * Medications:? Objective: Assessment: Plan: * Treatment: * Procedure Codes:? * true * Date:? Generated for Clair umaña/Marla/eTransmitting on:?12/18/2024 05:38 PM EDT
== END 2024-12-18 16:10 | disposition home or self-care (01) ==
LOC: HO.HMCH 15:15
PROVIDERS: PCP Physician Assistant; Visit Provider Internal Medicine
DX: K21.00 Gastro-esophageal reflux disease with esophagitis, without bleeding (principal)

== ENCOUNTER → 2024-12-18 15:15 | Outpatient (BNVA) | payer OTHER, SELFPAY | PROVIDERS: PCP Physician Assistant; Visit Provider Internal Medicine | DX: K21.00 Gastro-esophageal reflux disease with esophagitis, without bleeding (principal) | CPT/HCPCS: 99212 ==

== ENCOUNTER 2025-01-29 10:42 | Outpatient (REF) | payer OTHER, SELFPAY ==
--- NOTE | ~2025-01-29 | XR_ITS ---
CLINICAL HISTORY: M54.41 - Lumbago with sciatica, right side 3 views lumbar spine Comparison: 09/25/2024 Findings: Normal vertebral body alignment. No acute fractures or dislocation. There are multiple level degenerative facet and disc change. IMPRESSION: No acute findings. This document has been electronically signed by: Ji Parker MD on 01/30/2025 13:56:06
--- OUTSIDE RECORDS SUMMARY | 2025-01-29 11:23 | XMS_ITS ---
Author Organization [facility] Address [address] [place] [address] Care Team Providers Care Air And Missile Defense Crewmember Name Role Phone Mychal Maldonado Primary Care Provider Unavailab Víctor Dong Jr Unavailable Osman Delgado Unavailable Unavailable REASON FOR VISIT gerd Encounters Encounter Location Date Provider Diagnosis [facility] [address] [place] [phone] 12/31/2023 Víctor Soni Jr Plan Of Treatment Next Appt Details Provider Name:Víctor do Jr, 03/23/2025 11:20:00 AM, [address] [place] [address], [address], [place], [address], Progress Notes * SLOAN FITZPATRICKDOB: 0 (55 yo F)Acc No.[id number]:12/31/2023 Progress Notes Patient:?SLOAN FITZPATRICK Provider:?Víctor Soni MD :1970???Age:53 Y???Sex:Female D ate:12/31/2023 Address:[address] [place], [place] [phone] Pcp:Mychal Maldonado Subjective: * Chief Complaints: * ???1. Gerd. * Medical History:? Objective: * Vitals:? Assessment: Plan: * Treatment: * * The named appointment provid er may or may not be the originator of this progress note, and it is not deemed complete until electronically signed by the appointment provider. Sign off status: Pending * Provider:?Víctor Soni MD Date:?0 12/31/2023 Generated for Clair umaña/Marla/Shari on:?01/29/2025 11:23 AM EDT
--- OUTSIDE RECORDS SUMMARY | 2025-01-29 11:23 | XMS_ITS | Clinical Summary ---
Author Organization [facility] Address [address] [place] [address] Phone Care Team Providers Care Analytics Analyst Name Role Phone Mychal Maldonado Primary Care Provider Allergies No known active allergies Medications multivitamin [...] for 3 days. 6 each 5 Active Active Problems Problem Noted Date Diagnosed [...] EDT - 12/06/2024 7:10 PM EDT Emergency [facility] Emergency [address] [place] [phone] Law Wyman MD Migraine without aura and without status migrainosus, not intractable (Primary Dx); Gastric reflux syndrome Discharge Disposition: Home or Self Care 11/26/2024 11:03 AM EDT - 11/26/2024 11:59 PM EDT Hospital [facility] [address] [phone] Encounter for well woman exam with routine gynecological exam; Screening breast examination Discharge Disposition: Home or Self Care from Last 3 Months Immunizations Name Administration Dates Next Due Influenza trivalent, 0.5mL, preservative free (Fluarix; FluLaval; Fluzone) ages 6mo and older (Afluria) 3 years and older 08/19/2014,06/09/2013,07/03/2011 Lexim SARS-CoV-2 COVID-19, mRNA, LNP-S, preservative free 10/27/2020 Surgical History Surgery Date Site/Laterality Comments KIDNEY STONE SURGERY PROCEDURE: AR NEPHROLITHOTOMY REMOVAL CALCULUS Medical History Medical History [...] 12/06/2025 12/06/2024, 03/15/2022 Breast Cancer Screening 11/26/2026 11/27/19, 11/26/2023, 03/23/2022, Additional history exists Cervical Cancer [...] with routine gynecological exam Screening breast examination HPV WITH REFLEX GENOTYPE Routine 10/17/2024 10:04 AM EST Encounter for well woman exam with routine gynecological exam Screening for cervical cancer HEPATITIS C SCREENING Routine 03/26/2018 LIPID PANEL [...] bilaterally. No bony abnormality is demonstrated. Code 09898 -------- FINAL REPORT -------- Dictated By: Ji Ayon Dictated Date: 12/07/2024 08:30 ET Assigned Physician: Ji Ayon Reviewed and Electronically Signed By: Ji Ayon Signed Date: 12/07/2024 08:33 ET Workstation ID: [id number] Transcribed By: Self Edit Transcribed Date: 12/07/2024 [...] CT scan of the abdomen and pelvis awrtrlhiu57/26/2021. IMPRESSION: No acute findings. There is evidence of calcific tendinitis of the hipsbilaterally. No bony abnormality is demonstrated. Code 20284 -------- FINAL REPORT -------- Dictated By: Ji Ayon Dictated Date: 12/07/2024 08:30 ET Assigned Physician: Ji Ayon Reviewed and Electronically Signed By: Ji Ayon Signed Date: 12/07/2024 08:33 ET Workstation ID: [id number] Transcribed By: Self Edit Transcribed Date: 12/07/2024 [...] GEMUSE QTc 428 ms GEMUSE P Wave Warren[place] -4 degrees GEMUSE R [place] -12 degrees GEMUSE T Warren[place] 15 degrees GEMUSE ECG Interpretation Normal sinus rhythm Moderate voltage criteria for LVH, may be normal variant ( R in aVL , [place] product ) Borderline ECG When compared with ECG of 06-DEC-2024 14:22, (unconfirmed) No significant change was found Confirmed by FRANK ANTHONY ([id number]) on 12/07/2024 7:55:26 AM GEMUSE 12/06/2024 3:40 PM EDT 12/07/2024 7:55 AM EDT us Nani Gabriel DO ECG ORDERABLES Final Res ult GEMUSE * XR Chest 2 Views (12/06/2024 3:27 PM EDT) Anatomical Region Laterality Modality Body Radiographic Jackie ging 12/06/2024 3:35 PM EDT Impressions 12/06/2024 3:36 PM EDT No evidence of active pulmonary disease. No significant change from the prior study. [id number] -------- FINAL REPORT -------- Dictated By: Joss Jenkins Dictated Date: 12/06/2024 15:35 ET Assigned Physician: Joss Jenkins Reviewed and Electronically Signed By: Joss Jenkins Signed Date: 12/06/2024 15:36 ET Workstation ID: [id number] Transcribed By: Self Edit Transcribed Date: 12/06/2024 [...] disease. No significant change from theprior study. [id number] -------- FINAL REPORT -------- Dictated By: Joss Jenkins Dictated Date: 12/06/2024 15:35 ET Assigned Physician: Joss Jenkins Reviewed and Electronically Signed By: Joss Jenkins Signed Date: 12/06/2024 15:36 ET Workstation ID: [id number] Transcribed By: Self Edit Transcribed Date: 12/06/2024 15:35 ET us Nani Gabriel DO IMG XR PROCEDURES Final R esult * Troponin I high sensitivity (12/06/2024 2:28 PM EDT) Only the most recent of2 resultswithin the time period is included. High Sensitivity Troponin I 3 <=54 ng/L LAB CHEMISTRY METHOD 12/06/2024 3:[address] [facility] Blood Venous blood specimen / Unknown Venipuncture / Unknown 12/06/2024 2:28 PM EDT 12/06/2024 3:[address] [facility] - 12/06/2024 3:54 PM EDT High levels of biotin in samples may falsely decrease hsTroponin values. ??Use caution when interpreting hsTroponin results in patients taking biotin who exhibit renal impairment (eGFR <60) or in patients taking more than 20 mg/day of biotin. us Nani Gabriel DO LAB BLOOD ORDERABLES Suzan l Result [facility] [address] [place] [address], * (ABNORMAL) CBC auto differential (12/06/2024 1:27 PM EDT) Pathologist [facility] WBC 7.3 4.8 - 10.8 K/mcL LAB HEMETOLOGY METHOD 12/06/2024 1:[address] [facility] RBC 4.90(H) 3.80 - 4.80 M/mcL LAB HEMETOLOGY METHOD 12/06/2024 1:[address] [facility] Hemoglobin 13.1 11.5 - 16.0 g/dL LAB HEMETOLOGY METHOD 12/06/2024 1:[address] [facility] Hematocrit 41.8 35.0 - 47.0 % LAB HEMETOLOGY METHOD 12/06/2024 1:[address] [facility] MCV 84.6 79.0 - 98.0 FL LAB HEMETOLOGY METHOD 12/06/2024 1:[address] [facility] MCH 26.5(L) 27.0 - 32.0 pcg LAB HEMETOLOGY METHOD 12/06/2024 1:[address] [facility] MCHC 31.3(L) 32.0 - 37.0 g/dL LAB HEMETOLOGY METHOD 12/06/2024 1:44 PM [facility] RDW 13.2 11.0 - 15.0 % LAB [facility]EMETOLOGY [facility] Platelets 213 130 - 400 K/mcL LAB HEMETOLOGY METHOD [facility]/06[facility]24 [facility] MPV 10.4 7.0 - 11.0 FL LAB HEMETOLOGY METHOD 12/06/2024 1:44 PM [facility] NRBC 0.0 <1.0 % LAB HEMETOLOGY METHOD 12/06/2024 1:44 PM [facility] NRBC Absolute 0.00 <0.10 K/mcL LAB HEMETOLOGY METHOD 12/06[facility]24 [facility] Neutrophils Relative 65.8 % LAB HEMETOLOGY METHOD 12/06/2024 1:44 PM [facility] Lymphocytes Relative 25.4 % LAB HEMETOLOGY METHOD 12/06/2024 1:44 PM [facility] Monocytes Relative 6.5 % LAB HEMETOLOGY METHOD 12/06/2024 1:44 PM [facility] Eosinophils Relative 1.7 % LAB HEMETOLOGY METHOD 12/06[facility]24 [facility] Basophils Relative 0.3 % LAB HEMETOLOGY METHOD 12/06/2024 1:44 PM [facility] Immature Granulocytes Relative 0.3 % LAB HEMETOLOGY METHOD 12/06[facility]2024 [facility] Neutrophils Absolute 4.79 1.50 - 7.00 K/mcL LAB HEMETOLOGY METHOD 12/06/2024 1:[address] [facility] Lymphocytes Absolute 1.85 1.00 - 5.00 K/[facility] LAB HEMETOLOGY METHOD 12/06/2024 1:[address] [facility] Monocytes Absolute 0.47 0.20 - 1.00 K/[facility] LAB HEMETOLOGY METHOD 12/06/2024 1:[address] [facility] Eosinophils Absolute 0.12 0.00 - 0.50 K/[facility] LAB HEMETOLOGY METHOD 12/06/2024 1:[address] [facility] Basophils Absolute 0.02 0.00 - 0.20 K/[facility] LAB HEMETOLOGY METHOD 12/06/2024 1:[address] [facility] Immature Granulocytes Absolute 0.02 0.00 - 0.03 K/[facility] LAB HEMETOLOGY METHOD 12/06/2024 1:[address] [facility] Blood Venous blood specimen / Unknown Venipuncture / Unknown 12/06/2024 1:27 PM EDT 12/06/2024 1:39 PM EDT us Nani Gabriel DO LAB BLOOD ORDERABLES Suzan l Result [facility] [address] [place] [address], * B-type natriuretic peptide (12/06/2024 1:27 PM EDT) BNP 31 <=100 pcg/mL LAB CHEMISTRY METHOD 12/06/2024 2:[address] [facility] Blood Venous blood specimen / Unknown Venipuncture / Unknown 12/06/2024 1:27 PM EDT 12/06/2024 1:39 PM EDT us Nani Garbiel DO LAB BLOOD ORDERABLES Suzan l Result Performing Organization Address [facility]/ZIP Co de Phone Number [facility] [address] [place] [address], [place] [phone] * Magnesium (12/06/2024 1:27 PM EDT) [facility] Magnesium 1.9 1.9 - 2.6 mg/dL LAB CHEMISTRY METHOD 12/06/2024 2:[address] [facility] Blood Venous blood specimen / Unknown Venipuncture / Unknown 12/06/2024 1:27 PM EDT 12/06/2024 1:39 PM EDT Nani Gabriel LAB BLOOD ORDERABLES Suzan l Result Performing Organization Address [facility] Co de Phone Number [facility] [address] [place] [address], [place] [phone] * Lipase (12/06/2024 1:27 PM EDT) [facility] Lipase 43 13 - 75 unit/L LAB CHEMISTRY METHOD 12/06/2024 2:[address] [facility] Blood Venous blood specimen / Unknown Venipuncture / Unknown 12/06/2024 1:27 PM EDT 12/06/2024 1:39 PM EDT Nani Thurman Gabriel LAB BLOOD ORDERABLES Suzan l Result Performing Organization Address City/[facility]/ZIP Co de Phone Number [facility] [address] [place] [address], [place] [phone] * (ABNORMAL) Comprehensive metabolic panel (12/06/2024 1:27 PM EDT) [facility] Sodium 143 133 - 145 mmol/L LAB CHEMISTRY METHOD 12/06/2024 2:[address] [facility] Potassium 4.0 3.5 - 5.5 mmol/L LAB CHEMISTRY METHOD 12/06/2024 2:12 PM [facility] Chloride 109 96 - 110 mmol/L LAB CHEMISTRY METHOD 12/06/2024 2:12 PM [facility] CO2 26 21 - 32 mmol/L LAB CHEMISTRY METHOD 12/06/2024 2:12 PM [facility] Anion Gap 8 3 - 11 LAB CHEMISTRY METHOD 12/06/2024 2:12 PM [facility] Glucose 101(H) 70 - 100 mg/dL LAB CHEMISTRY METHOD 12/06/2024 2:12 PM [facility] BUN 11 5 - 25 mg/dL LAB CHEMISTRY METHOD 12/06/2024 2:12 PM [facility] Creatinine 0.61 0.50 - 1.10 mg/dL LAB CHEMISTRY METHOD 12/06/2024 2:12 PM [facility] eGFR 106 >=60 mL/min/1. 73m2 LAB CHEMISTRY METHOD 12/06/2024 2:12 PM [facility] Comment:Calculation based on the??Chronic Kidney Disease Epidemiology Collaboration (CKD-EPI) equation refit??without adjustment for race. BUN/Creatinine Ratio 18.0 LAB CHEMISTRY METHOD 12/06/2024 2:12 PM [facility] Calcium 9.6 8.5 - 10.5 mg/dL LAB CHEMISTRY METHOD 12/06/2024 2:12 PM [facility] AST (SGOT) 17 10 - 42 unit/L LAB CHEMISTRY METHOD 12/06/2024 2:12 PM [facility] ALT (SGPT) 21 10 - 60 unit/L LAB CHEMISTRY METHOD 12/06/2024 2:12 PM [facility] Alkaline Phosphatase 100 42 - 121 unit/L LAB CHEMISTRY METHOD 12/06/2024 2:12 PM [facility] Total Protein 7.2 6.0 - 8.0 g/dL LAB CHEMISTRY METHOD 12/06/2024 2:[address] [facility] Albumin 3.8 3.2 - 5.0 g/dL LAB CHEMISTRY METHOD 12/06/2024 2:[address] [facility] Total Bilirubin 0.5 0.0 - 1.4 mg/dL LAB CHEMISTRY METHOD 12/06/2024 2:[address] [facility] Blood Venous blood specimen / Unknown Venipuncture / Unknown 12/06/2024 1:27 PM EDT 12/06/2024 1:39 PM EDT us Nani Grant Gibsonny Harvey DO LAB BLOOD ORDERABLES Suzan l Result [facility] [address] [place] [address], [place] [phone] * MG Mammo Digital Screening w Yomi bilat (11/26/2024 11:49 AM EDT) Anatomical Region Laterality Modality Breast Bilateral Mammography 11/26/2024 4:00 PM EDT Impressions 11/26/2024 4:12 PM EDT No evidence of breast malignancy. BI-RADS CATEGORY: 1 - NEGATIVE RECOMMENDATION: Screening bilateral mammogram is recommended in 1 year. Mammo Location: [facility], [address] [place], [place], [address], . -------- FINAL REPORT -------- Dictated By: Veornica Akhtar Dictated Date: 11/26/2024 16:00 ET Assigned Physician: Veronica Akhtar Reviewed and Electronically Signed By: Veronica Akhtar Signed Date: 11/26/2024 16:12 ET Workstation ID: [id number] Transcribed By: Self Edit Transcribed Date: 11/26/2024 [...] year. Mammo Location: [facility], [address] [place] [address], [address], . -------- FINAL REPORT -------- Dictated By: Veronica Akhtar Dictated Date: 11/26/2024 16:00 ET Assigned Physician: Veronica Akhtar Reviewed and Electronically Signed By: Veronica Akhtar Signed Date: 11/26/2024 16:12 ET Workstation ID: [id number] Transcribed By: Self Edit Transcribed Date: 11/26/2024 16:00 ET Odette KAPOOR IMG BI PROCEDURES Final Resul t * HPV with reflex genotype (10/17/2024 10:04 AM EST) HPV Negative Negative LAB MICROBIOLOGY METHOD 10/20/2024 3:[address] [facility] Brushing/Spatula Cervix uteri structure / Unknown 10/17/2024 10:04 AM EST 10/20/2024 6:05 AM EST Odette Rubi CNM LAB MOLECULAR DIAGNOSTICS ORD ERABLES Final Result [facility] [address] [place] [address], * Hepatitis C Screening (03/26/2018) Hepatitis C Screening Abstracted Historical Provider MD HEALTH MAINTENANCE Final Result * (ABNORMAL) Lipid [...] Most Recently Relevant to Health Maintenance Insurance [facility] Care Teams Analytics Analyst Relationship Specialty Start Date End Date Mychal Maldonado PA [address] [place] [phone] PCP - General Physician Decatizer 12/06/24
--- OUTSIDE RECORDS SUMMARY | 2025-01-29 11:23 | XMS_ITS ---
Author Organization [facility] Address [address] [place] [address] [place] [phone] Care Team Providers Care Correspondence Transcriber Name Role Phone Mychal Maldonado Primary Care Provider Unavailab Víctor Dong Jr Unavailable Osman Delgado Unavailable Unavailable REASON FOR VISIT Patient presents today for gerd Encounters Encounter Location Date Provider Diagnosis [facility] [address] [place] [phone] 01/07/2024 Víctor Soni Jr Plan Of Treatment Next Appt Details Provider Name:Víctor do Jr, 03/23/2025 11:20:00 AM, [address] [place] [address], [address], [place], [phone], Progress Notes * SLOAN FITZPATRICKDOB: 0 (55 yo F)Acc No.[id number]:01/07/2024 Progress Notes Patient:?SLOAN FITZPATRICK Provider:?Víctor Soni MD :1970???Age:54 Y???Sex:Female D ate:01/07/2024 Address:[address] [place], [place] [id number] Pcp:Mychal Maldonado Subjective: * Chief Complaints: * [...] Soni MD Date:?0 01/07/2024 Generated for Clair umaña/Marla/Shari on:?01/29/2025 11:23 AM EDT
--- OUTSIDE RECORDS SUMMARY | 2025-01-29 11:23 | XMS_ITS | Patient Health Record ---
Author Organization [facility] Address [address] [place] [phone] Care Team Providers Care Director Industrial Name Role Phone Mychal Maldonado Primary Care [...] Problem Status W/U Status Risk Notes Problem 236674520 Colon cancer screening (Z12.11) Active confirmed Problem 211939015 Bloating (R14.0) Active confirmed Problem 009164715 Encounter for other preprocedural examination (Z01.818) Active confirmed Problem Gastroesophageal reflux disease (654078751) Gastroesophageal reflux disease (K21.9) Active confirmed Problem 262406411 Gastroesophageal reflux disease without esophagitis (K21.9) Active confirmed Problem 55064095 Constipation, unspecified constipation type (K59.00) Active confirmed Problem 2940596 Proctitis (K62.89) Active confirmed Problem 17031569 Chest pain, unspecified type (R07.9) Active confirmed Problem 021435499 Gastroesophageal reflux disease, unspecified whether esophagitis present (K21.9) Active confirmed Plan Of Treatment Future Test Test Name Order Date COLONOSCOPY 01/28/2021 UPPER GI ENDOSCOPY 08/17/2021 Next Appt Details Provider Name:Víctor do , 03/23/2025 11:20:00 AM, [address] [place] [address], [address], [place], [phone], Insurance Providers Payer Name Payer Address Payer Phone Subscriber Number Group Number Insured Name Patient Relationship to Insured Coverage Start Date Coverage End Date [facility] [address] [address] [place], [place] [id number] SLOAN FITZPATRICK Self - patient is the insured Medical (General) History Medical History History ICD Code hx of kidney stones Gastroesophageal reflux dise ase, EGD 09/16/21, no Causey's esophagus or H. pylori Elevated cholesterol Atypical chest pain, [facility] iology, Dr. Alfonso Colonoscopy 02/04/21, mild pr octitis, treated with 8 weeks of mesalamine. Ten-year followup Surgical History Surgery Date(Month/Year) kidney stones Hospitalization History Reason Date(Month/Year)
--- OUTSIDE RECORDS SUMMARY | 2025-01-29 11:23 | XMS_ITS ---
Author Organization [facility] Address [address] [place] [address] Care Team Providers Care Pepper Picker Name Role Phone Mychal Maldonado Primary Care Provider Unavailab Víctor Dong Jr Unavailable Osman Delgado Unavailable Unavailable REASON FOR VISIT Pt no show Encounters Encounter Location Date Provider Diagnosis [facility] [address] [place] [address] 01/07/2024 Víctor Soni Jr Plan Of Treatment Next Appt Details Provider Name:Víctor do Jr, 03/23/2025 11:20:00 AM, [address], [address], [place], [address], Progress Notes * SLOAN FITZPATRICKDOB: 0 (54 yo F)Acc No.[id number]:01/07/2024 Patient:?NANETTEEDUARSLOAN :1970???Age:54 Y???Sex:Female Address:[address] [place] [address], [address] Subjective: * Chief Complaints: * ???Pt no show * Medical History:? * Surgical History:? * Hospitalization/Major Diagno stic Procedure:? * Medications:? Objective: Assessment: Plan: * Treatment: * Procedure Codes:? * true * Date:? Generated for Printi ng/Faxing/eTransmitting on:?01/29/2025 11:23 AM EDT
[2025-01-29 11:24] LABS: Hematocrit 40.3 % (37.0-47.0); Hemoglobin 13.2 g/dl (12.0-16.0); Mean Corpuscular HGB Conc 32.8 g/dl (31.0-35.0); Mean Corpuscular Hemoglobin 27.1 pg (27.0-33.0); Mean Corpuscular Volume 82.8 fL (80.0-98.0); Mean Platelet Volume 10.6 fL (9.4-12.3); Platelet Count 189 X10*3/uL (160-400); Red Blood Count 4.87 X10*6/uL (4.20-5.50); Red Cell Distribution Width 13.2 % (11.0-16.0); White Blood Count 6.1 X10*3/uL (4.8-10.8)
[2025-01-29 12:31] LABS: Alanine Aminotransferase 15 U/L (0-31); Alkaline Phosphatase 78 U/L (39-117); Anion Gap 9 (12-20); Aspartate Amino Transferase 22 U/L (5-31); Bilirubin Total 0.3 mg/dL (0.0-1.0); Blood Urea Nitrogen 11 mg/dL (9-16); Calcium 9.2 mg/dL (8.4-10.2); Carbon Dioxide 27 mmol/L (22-29); Chloride 111 mmol/L (96-108); Cholesterol 175 mg/dL (<200); Estimated Glomerular Filt Rate > 60; Glucose Fasting 88 mg/dL (60-99); HDL Cholesterol 46 mg/dL (>40); Iron 35 mcg/dL (30-160); LDL Cholesterol Calculated 101 mg/dL (<100); Percent Iron Saturation 14 % (15-50); Potassium 3.7 mmol/L (3.3-5.1); Sodium 143 mmol/L (135-145); Total Iron Binding Capacity 254 mcg/dL (228-428); Total Protein 6.6 g/dL (6.5-8.0); Triglycerides 140 mg/dL (<150); Unsaturated Iron Binding 219 ug/dL
== END 2025-01-29 10:43 | disposition home or self-care (01) ==
LOC: HO.XRAY 10:42
PROVIDERS: PCP Physician Assistant; Visit Provider Physician Assistant
DX: D64.9 Anemia, unspecified (principal); E78.2 Mixed hyperlipidemia; D50.9 Iron deficiency anemia, unspecified; M54.41 Lumbago with sciatica, right side; G89.29 Other chronic pain
CPT/HCPCS: 36415; 72100; 80053; 80061; 83540; 85027

== ENCOUNTER → 2025-01-29 11:00 | Outpatient (BNV) | payer OTHER, SELFPAY | PROVIDERS: PCP Physician Assistant; Visit Provider Specialist | DX: M51.369 Other intervertebral disc degeneration, lumbar region without mention of lumbar back pain or lower extremity pain (principal) | CPT/HCPCS: 72100 ==

== ENCOUNTER 2025-02-04 14:56 | Outpatient (AMB) | payer OTHER, SELFPAY ==
[2025-02-04 15:13] VITALS: BP 110/80; PULSE 82; TEMP 36.2; O2SAT 95; BMI 28.9
--- NOTE | 2025-02-04 15:13 | A.OFFPC_ITS ---
Vital Signs 02/04/25 15:13 Height 5 ft 3 in Weight 163 lb 6 oz BMI 28.9 BP 110/80 Blood Pressure Location Lt brachial Position Sitting Pulse 82 Pulse Source Pulse Oximeter Temp 97.1 F Temp Source Temporal Artery Scan Pulse Oximetry (%) 95 Oxygen Delivery Method Room Air Intake Visit Reasons: f/u HLD Workplace Relations Adviser Required: No Accompanied by: Self / Same As Patient Allergies No Known Allergies Allergy (Verified 02/04/25 15:51) Medication List - Last Reconciled 02/04/25 by Mychal Maldonado PA-C aspirin 81 mg PO DAILY diclofenac sodium 3% 1 appl topical BID 30 days hydroxyzine HCl 25 mg PO BEDTIME 90 days Magic Mouthwash Diphen/Lido/Antacid 1:1:1 15 mL PO TID methocarbamol 500 mg PO TID multivitamin (Daily Multi-Vitamin tablet) 1 tab PO DAILY 90 days pantoprazole 40 mg PO DAILY 90 days sennosides (Senna Laxative) 8.6 mg PO BEDTIME sumatriptan succinate 25 mg orally; 30 days zolpidem 10 mg PO BEDTIME 10 days Tobacco use date assessed: 12/18/24 Dental Screening Dental Screen Date: 11/04/24 HPI f/u HLD HPI Details Pateint is a 55 year-old female here today for an annual physical ? Patient's past medical history significant for major depressive disorder,, OCD, Anxiety, hyperlipidemia? iron deficiency anemia. Overweight: Has been going to a weight loss clinic in spending 2000 dollars per 3 month trial of semaglutide. She continues to maintain her weight around 163 lb. Interestingly enough her fasting blood sugars have improved and her anemia has normalized. She has not been able to afford GLP 1 and insurance will not cover. Over the last month she has stopped GLP 1 in his interested in starting a new oral weight loss appetite suppressant medication phentermine which she was on in the past. We did discuss the habit-forming nature and potential cardiovascular adverse effects of this medication and patient agrees and understands. .. GERD: The GERD symptoms have been significant, with severe heartburn that worsens with certain foods. She has been using antacids extensively but reported inadequate relief. The patient associates the exacerbation of her GERD with the use of Ozempic, which she started over a year ago for weight management. Due to severe symptoms, she is considering completely discontinuing Ozempic. CHRONIC MEDICAL CONDITIONS --> .. Hyperlipidemia:? Continues on statin therapy without side effect. She reports she has stopped using statin therapy as of July of 2024. Most recent fasting lipid panel showing appropriate total cholesterol and LDL PLAN: Will recheck fasting lipid panel and if LDL above goal 130 will consider restarting statin therapy .. ? Iron deficiency anemia; most recent labs showing improved CBC. Major depressive disorder:? She has been more stressed as of late due to personal issues. She has been off of follow her psychiatric medication and is interested in getting back on SSRI therapy and talking to a mental health therapist again. Laboratory Tests 04/02/23 06/07/23 08/12/24 10:32 10:00 10:19 Fasting Glucose 111 H 90 Iron 53 Cholesterol 134 129 128 LDL Cholesterol, C alc 58 59 Influenza Type A ( PCR) 10/13/24 11:26 Fasting Glucose Iron Cholesterol LDL Cholesterol, C alc Influenza Type A ( PCR) [facility] Medical History (Updated 02/04/25 @ 15:57 by Mychal Maldonado PA-C) Acute respiratory disease Abnormal EKG Chronic upper abdominal pain COVID-19 vaccine series completed Sleep apnea Anemia Iron deficiency Constipation Lumbar spine pain Insomnia BRENTON (generalized anxiety disorder) Surgical History H/O colonoscopy (~02/04/21) History of extraction of renal calculus Family History Mother Diabetes Fibromyoma Anemia Depression Hypertension Asthma CVA (cerebral vascular accident) Father No problems noted. 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 3. Trouble falling or staying asleep, or sleeping too much: not at all 5. Poor appetite or overeating: nearly every day Source: Developed by Drs. Drake Farris, Joyce Acuna, Valente Klein and colleagues, with an educational leo from [employer]. Thrive Questionnaire Date Thrive assessed: 10/28/24 I am a: Patient What is your living situation today?: I have a steady place to live Within the past 12 months, did the food you bought not last and you didn't have the money to get more?: Never true Within the past 12 months, did you worry whether your food would run out before you got money to buy more?: Never true Do you have trouble paying for medicines?: Yes Do you have trouble getting transportation to medical appointments?: No Do you have trouble paying your heating and electricity bill?: Yes Do you have trouble taking care of your child, family member or friend?: No Do you have trouble with day-to-day activities such as bathing, preparing meals, shopping, managing finances, etc.?: No Are you currently unemployed and looking for a job?: Yes Are you interested in more education?: No Currently or been in a relationship where the following occur: No concerns reported THRIVE Score: 1 BRENTON-7 AMB Questionnaire BRENTON-7 Date BRENTON - 7 assessed: 11/04/24 Source: Developed by Drs. Drake Farris, Joyce Acuna, Valente Klein and colleagues, with an educational leo from [employer]. Review of Systems Const Denies headache(s) Eyes Denies loss of vision ENT Denies vertigo, Denies dizziness, Denies headache(s) and Denies sore throat Card Denies chest pain, Denies leg edema and Denies lightheadedness Resp Denies cough, Denies hemoptysis and Denies wheezing GI Denies abdominal pain, Denies melena, Denies constipation, Denies diarrhea and Denies vomiting Denies urinary frequency, Denies dysuria and Denies urinary urgency Musc Denies arthralgias, Denies joint swelling, Denies numbness and Denies tingling Neuro Denies Abnormal speech present, Denies behavioral changes, Denies vertigo, Denies dizziness, Denies headache(s), Denies loss of vision, Denies memory loss, Denies numbness and Denies tingling Psych Denies anxiety, Denies behavioral changes, Denies depression, Denies memory loss and Denies panic attacks Jos/Lymph Denies easy bleeding and Denies easy bruising Aller/Immun Denies wheezing Physical exam (Primary Care) Vital Signs: Last Vital Signs Temp 97.1 F 02/04/25 15:13 Pulse 82 02/04/25 15:13 BP 110/80 02/04/25 15:13 Pulse Ox 95 02/04/25 15:13 Oxygen Delivery Method Room Air 02/04/25 15:13 BMI result Body Mass Index 28.9 Tobacco/Smoking Status: Tobacco use Status Tobacco use date assessed 12/18/24 02/04/25 15:15 Patient Tobacco Use Status Former Tobacco user 02/04/25 15:15 Tobacco use type Cigarette 02/04/25 15:15 e-Cigarette/Vaping Use Never Used 02/04/25 15:15 Thrive Assessment: Date of Thrive Assessment Date Thrive assessed 10/28/24 02/04/25 15:15 Currently or been in a relationship where the following occur: No concerns reported Const General: healthy appearing, no acute distress, alert and awake Nutritional Appearance: well nourished Orientation/consciousness: oriented to person, oriented to place and oriented to time HENMT Ears: TM's normal bilaterally General nose exam: Normal nasal mucous membranes and turbinates present Eyes Conjunctivae: conjunctivae normal Sclerae: sclerae normal Pupils: Equal, round and reactive pupils present Neck Neck: Yes no lymphadenopathy and Yes no JVD Thyroid: Thyroid normal Carotids: no bruits Resp Effort & Inspection: normal respiratory effort and not tachypneic Auscultation: no crackles, no rales, no rhonchi and no wheezes Cardio Rate: regular rate Rhythm: regular rhythm Heart sounds: no murmurs and normal S1 and S2 GI Palpation (GI): Soft to palpation, nontender, no hepatomegaly and no splenomegaly Auscultation: normal bowel sounds Skin General skin exam: no rashes or lesions noted and dry skin Neuro General: oriented to person, oriented to place and oriented to time Cranial nerves: Yes Equal, round and reactive pupils present Speech: No Abnormal speech present Gait exam (Neuro): Normal gait present Motor exam (neuro): no tremor noted Extrem Right upper extremity: full ROM Left upper extremity: full ROM Right lower extremity: full ROM; no edema Left lower extremity: full ROM; no edema Psych Mental Status: mental status grossly normal Speech and movement: Normal speech and movement present Affect: normal affect Attitude: cooperative Thought process: Normal thought process present Coding Level of Care Code Est Pt Level 4 (41804) Diagnoses Mixed hyperlipidemia E78.2 Hyperlipidemia type: mixed hyperlipidemia Gastroesophageal reflux disease with esophagitis without hemorrhage K21.00 Esophagitis bleeding: without hemorrhage Esophagitis presence: with esophagitis Class 1 obesity E66.811 Iron deficiency anemia, unspecified iron deficiency anemia type D50.9 Anemia type: iron deficiency Iron deficiency anemia type: unspecified iron deficiency Assessment & Plan Assessment & Plan (1) HLD (hyperlipidemia): Code(s): E78.5 - Hyperlipidemia, unspecified Category: Medical Qualifiers: Hyperlipidemia type: mixed hyperlipidemia Qualified Code(s): E78.2 - Mixed hyperlipidemia Plan: Patient's most recent lipid panel showing good control over total cholesterol and LDL. She has not been taking cholesterol medication for quite some time now and will continue to hold her statin therapy. For now patient's cholesterol is diet controlled will continue to work on dietary modifications. Goal LDL is to be below 130 (2) GERD (gastroesophageal reflux disease): Code(s): K21.9 - Gastro-esophageal reflux disease without esophagitis Category: Medical Qualifiers: Esophagitis bleeding: without hemorrhage Esophagitis presence: with esophagitis Qualified Code(s): K21.00 - Gastro-esophageal reflux disease with esophagitis, without bleeding Plan: The patient will discontinue Ozempic due to exacerbation of GERD symptoms and continue with antacids and dietary modifications. (3) Class 1 obesity: Code(s): E66.811 - Obesity, class 1 Category: Medical Plan: Patient has lost weight with six-month use of GLP 1. She has been able to maintain weight loss. Unfortunately GLP 1 has been too expensive for her to by has stopped the medication also she feels as though Ozempic is causing her GERD symptoms to be worse. Will transitioned her to short-term script of phentermine oral medication for appetite suppressant to help maintain weight loss for now. She does understand the habit-forming nature of the medication and potential cardiac adverse effects with his medication. (4) Anemia: Code(s): D64.9 - Anemia, unspecified Category: Medical Qualifiers: Anemia type: iron deficiency Iron deficiency anemia type: unspecified iron deficiency Qualified Code(s): D50.9 - Iron deficiency anemia, unspecified Plan: Patient's anemia has stabilized. Will continue to follow CBC Medications: New phentermine must administer 30 minutes before or 1-2 hours after breakfast 37.5 mg PO DAILY 30 caps 2RF 30 days E66.811 - Obesity, class 1 Discontinued Magic Mouthwash Diphen/Lido/Antacid 1:1:1 Lidocaine Viscous 2 % 80mL; diphenhydramine 12.5 mg/5 mL 80mL; aluminum-mag hydrox-simeth [id number]/5mL 80mL Discontinued Reason: Doctor's Order 15 mL PO TID 240 mL 0RF
--- OUTSIDE RECORDS SUMMARY | 2025-02-04 15:43 | XMS_ITS ---
Author Organization [facility] Address [address] [place] [id number] Care Team Providers Care Fraternity Adviser Name Role Phone Mychal Maldonado Primary Care Provider Unavailab Víctor Dong Jr Unavailable Osman Delgado Unavailable Unavailable REASON FOR VISIT gerd Encounters Encounter Location Date Provider Diagnosis [facility] [address] [place] [id number] 12/31/2023 Víctor Soni Jr Plan Of Treatment Next Appt Details Provider Name:Víctor do Jr, 03/23/2025 11:20:00 AM, [address] [place] [address], [address], [place], [id number], Progress Notes * SLOAN FITZPATRICKDOB: [birth year] (55 yo F)Acc No.[id number]:12/31/2023 Progress Notes Patient:?NANETTE SLOAN Provider:?Víctor Soni MD :1970???Age:53 Y???Sex:Female D ate:12/31/2023 Address:[address] [place], [place] [id number] Pcp:Mychal Maldonado Subjective: * Chief Complaints: * [...] MD Date:?0 12/31/2023 Generated for Clair umaña/Marla/Shari on:?02/04/2025 03:43 PM EDT
== END 2025-02-04 16:10 | disposition home or self-care (01) ==
LOC: HO.HMCH 14:57
PROVIDERS: PCP Physician Assistant; Visit Provider Physician Assistant
DX: E78.2 Mixed hyperlipidemia (principal); K21.00 Gastro-esophageal reflux disease with esophagitis, without bleeding; E66.811 Obesity, class 1; Z68.28 Body mass index [BMI] 28.0-28.9, adult; D50.9 Iron deficiency anemia, unspecified

== ENCOUNTER → 2025-02-04 14:56 | Outpatient (BNVA) | payer OTHER, SELFPAY | PROVIDERS: PCP Physician Assistant; Visit Provider Physician Assistant | DX: E78.2 Mixed hyperlipidemia (principal); K21.00 Gastro-esophageal reflux disease with esophagitis, without bleeding; E66.811 Obesity, class 1; Z68.28 Body mass index [BMI] 28.0-28.9, adult; D50.9 Iron deficiency anemia, unspecified; F32.A Depression, unspecified; Z79.899 Other long term (current) drug therapy | CPT/HCPCS: 99212 ==

== ENCOUNTER 2025-05-13 15:01 | Outpatient (AMB) | payer OTHER, SELFPAY ==
--- OUTSIDE RECORDS SUMMARY | 2023-12-31 06:00 | XMS_ITS ---
Author Organization [facility] Address [address] [place] [phone] Care Team Providers Care Culinary Worker Name Role Phone Mychal Maldonado Primary Care Provider Unavailab Víctor Dnog Jr Unavailable Osman Delgado Unavailable Unavailable REASON FOR VISIT gerd Encounters Encounter Location Date Provider Diagnosis [facility] [address] [place] [phone] 12/31/2023 Víctor Soni Jr Plan Of Treatment Next Appt Details Provider Name:Víctor do Jr, 03/24/2026 10:10:00 AM, [address] [facility], [address], [place], [address], Progress Notes * SLOAN FITZPATRICKDOB: 0 (55 yo F)Acc No.[id number]:12/31/2023 Progress Notes Patient: SLOAN RAMIREZ Provider: Guille Soni MD :1970 A ge:53 Y S ex:Female Date:12/31/2023 Address:[address] [place] [address] Pcp:Mychal Maldonado Subjective: * Chief Complaints: * [...] 0 12/31/2023 Generated for Clair umaña/Marla/Shari on: 0 05/13/2025 05:10 PM EDT
--- OUTSIDE RECORDS SUMMARY | 2024-01-07 09:55 | XMS_ITS ---
Author Organization [facility] Address [address] [place] [address] [place] [address] Care Team Providers Care Wire Fence Erector Name Role Phone Mychal Maldonado Primary Care Provider Unavailab Víctor Dong Jr Unavailable [phone] Osman Delgado Unavailable Unavailable REASON FOR VISIT Patient presents today for gerd Encounters Encounter Location Date Provider Diagnosis [facility] [address] [place] [phone] 01/07/2024 Víctor Soni Jr Plan Of Treatment Next Appt Details Provider Name:Víctor do Jr, 03/24/2026 10:10:00 AM, [address] [place] [address], Suite [facility], [place], [address], Progress Notes * SLOAN FITZPATRIKCDOB: 0 (55 yo F)Acc No.[id number]:01/07/2024 Progress Notes Patient: SLOAN RAMIREZ Provider: Guille Soni MD :1970 A ge:54 Y S ex:Female Date:01/07/2024 Address:[address] [place] [address] Pcp:Mychal Maldonado Subjective: * Chief Complaints: * [...] 0 01/07/2024 Generated for Clair umaña/Marla/Shari on: 0 05/13/2025 05:11 PM EDT
--- NOTE | 2025-05-13 15:05 | A.OFFPC_ITS ---
Vital Signs 05/13/25 15:08 Height 5 ft 3 in Weight 164 lb 4 oz BMI 29.1 BP 130/70 Blood Pressure Location Lt brachial Position Sitting Pulse 99 Pulse Source Pulse Oximeter Temp 9.3 F L Temp Source Temporal Artery Scan Pulse Oximetry (%) 93 Oxygen Delivery Method Room Air Intake Visit Reasons: f/u weight check Intake Note: Patient is here to follow up on Weight check. 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: Not Required per policy Accompanied by: Self / Same As Patient Allergies No Known Allergies Allergy (Verified 05/13/25 15:14) Medication List - Last Reconciled 05/13/25 by Mychal Maldonado PA-C aspirin 81 mg PO DAILY diclofenac sodium 3% 1 appl topical BID 30 days hydroxyzine HCl 25 mg PO BEDTIME 90 days methocarbamol 500 mg PO TID multivitamin (Daily Multi-Vitamin tablet) 1 tab PO DAILY 90 days pantoprazole 40 mg PO DAILY 90 days phentermine 37.5 mg PO DAILY 30 days sennosides (Senna Laxative) 8.6 mg PO BEDTIME sumatriptan succinate 25 mg orally; 30 days zolpidem 10 mg PO BEDTIME 10 days Tobacco use date assessed: 05/13/25 Dental Screening Dental Screen Date: 11/04/24 HPI f/u weight check HPI Details Pateint is a 55 year-old female here today for follow-up visit, Patient's past medical history significant for major depressive disorder,, OCD, Anxiety, hyperlipidemia? iron deficiency anemia. Overweight: Has been going to a weight loss clinic in spending 2000 dollars per 3 month trial of semaglutide. She continues to maintain her weight around 163 lb. Interestingly enough her fasting blood sugars have improved and her anemia has normalized. She has not been able to afford GLP 1 and insurance will not cover. Over the last month she has stopped GLP 1 in his interested in starting a new oral weight loss appetite suppressant medication phentermine which she was on in the past. We did discuss the habit-forming nature and potential cardiovascular adverse effects of this medication and patient agrees and understands. .. GERD: The GERD symptoms have been significant, with severe heartburn that worsens with certain foods. She has been using antacids extensively but reported inadequate relief. She has followed up with the Gastroenterology whom recommends considering cardiac workup.. PLAN: Will start with Isra protocol stress test to evaluate for cardiac isch emia on exertion . . Anxiety/insomnia: The patient reports insomnia, attributing it to stress and personal issues, and is considering seeing a therapist again. She has not been taking any anxiety medication recently and has a history of anxiety, particularly during stressful periods. Of note patient was previously on Lexapro and BuSpar PLAN: Patient willing to trial Wellbutrin 150 ESR to help her with her anxiety and manage her weight. .. Hyperlipidemia:? Since losing weight with GLP 1 and phentermine therapy she has stopped cholesterol medication most recent LDL and total cholesterol were appropriate with the dietary modification. Continue to follow lipid panel .. ? Iron deficiency anemia; most recent labs showing improved CBC. Major depressive disorder:? She has been more stressed as of late due to personal issues. She has been off of follow her psychiatric medication and is interested in getting back on SSRI therapy and talking to a mental health therapist again. [facility] Medical History BRENTON (generalized anxiety disorder) Acute respiratory disease Abnormal EKG Chronic upper abdominal pain COVID-19 vaccine series completed Sleep apnea Anemia Iron deficiency Constipation Lumbar spine pain Insomnia Surgical History H/O colonoscopy (~02/04/21) History of extraction of renal calculus Family History Mother Diabetes Fibromyoma Anemia Depression Hypertension Asthma CVA (cerebral vascular accident) Father No problems noted. 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 Current occupational exposures/hazards: No Cognitive needs: No Hearing needs: No Vision needs: No Questionnaire Thrive Questionnaire Date Thrive assessed: 10/28/24 I am a: Patient What is your living situation today?: I have a steady place to live Within the past 12 months, did the food you bought not last and you didn't have the money to get more?: Never true Within the past 12 months, did you worry whether your food would run out before you got money to buy more?: Never true Do you have trouble paying for medicines?: Yes Do you have trouble getting transportation to medical appointments?: No Do you have trouble paying your heating and electricity bill?: Yes Do you have trouble taking care of your child, family member or friend?: No Do you have trouble with day-to-day activities such as bathing, preparing meals, shopping, managing finances, etc.?: No Are you currently unemployed and looking for a job?: Yes Are you interested in more education?: No Currently or been in a relationship where the following occur: No concerns re ported THRIVE Score: 1 BRENTON-7 AMB Questionnaire BRENTON-7 Date BRENTON - 7 assessed: 11/04/24 Source: Developed by Drs. Drake Farris, Joyce Acuna, Valente Klein and colleagues, with an educational leo from [employer]. Review of Systems Const Denies headache(s) Eyes Denies loss of vision ENT Denies vertigo, Denies dizziness, Denies headache(s) and Denies sore throat Card Reports chest pain, Denies leg edema and Denies lightheadedness Resp Denies cough, Denies hemoptysis and Denies wheezing GI Denies abdominal pain, Denies melena, Denies constipation, Reports dyspepsia, Reports heartburn, Denies diarrhea and Denies vomiting Denies urinary frequency, Denies dysuria and Denies urinary urgency Musc Denies arthralgias, Denies joint swelling, Denies numbness and Denies tingling Neuro Denies Abnormal speech present, Denies behavioral changes, Denies vertigo, Denies dizziness, Denies headache(s), Denies loss of vision, Denies memory loss, Denies numbness and Denies tingling Psych Reports abnormal sleep pattern, Reports anxiety, Denies behavioral changes, Denies depression, Reports irritability, Denies memory loss and Reports panic attacks Jos/Lymph Denies easy bleeding and Denies easy bruising Aller/Immun Denies wheezing Physical exam (Primary Care) Vital Signs: Last Vital Signs Temp 9.3 F L 05/13/25 15:08 Pulse 99 05/13/25 15:08 BP 130/70 05/13/25 15:08 Pulse Ox 93 05/13/25 15:08 Oxygen Delivery Method Room Air 05/13/25 15:08 BMI result Body Mass Index 29.1 Tobacco/Smoking Status: Tobacco use Status Tobacco use date assessed 05/13/25 05/13/25 15:13 Patient Tobacco Use Status Former Tobacco user 05/13/25 15:13 Tobacco use type Cigarette 05/13/25 15:13 e-Cigarette/Vaping Use Never Used 05/13/25 15:13 Thrive Assessment: Date of Thrive Assessment Date Thrive assessed 10/28/24 05/13/25 15:13 Currently or been in a relationship where the following occur: No concerns reported Const General: healthy appearing, no acute distress, alert and awake Nutritional Appearance: well nourished Orientation/consciousness: oriented to person, oriented to place and oriented to time HENMT Ears: TM's normal bilaterally General nose exam: Normal nasal mucous membranes and turbinates present Eyes Conjunctivae: conjunctivae normal Sclerae: sclerae normal Pupils: Equal, round and reactive pupils present Neck Neck: Yes no lymphadenopathy and Yes no JVD Thyroid: Thyroid normal Carotids: no bruits Resp Effort & Inspection: normal respiratory effort and not tachypneic Auscultation: no crackles, no rales, no rhonchi and no wheezes Cardio Rate: regular rate Rhythm: regular rhythm Heart sounds: no murmurs and normal S1 and S2 GI Palpation (GI): Soft to palpation, nontender, no hepatomegaly and no splenomegaly Auscultation: normal bowel sounds Skin General skin exam: no rashes or lesions noted and dry skin Neuro General: oriented to person, oriented to place and oriented to time Cranial nerves: Yes Equal, round and reactive pupils present Speech: No Abnormal speech present Gait exam (Neuro): Normal gait present Motor exam (neuro): no tremor noted Extrem Right upper extremity: full ROM Left upper extremity: full ROM Right lower extremity: full ROM; no edema Left lower extremity: full ROM; no edema Psych Mental Status: mental status grossly normal Speech and movement: Normal speech and movement present Affect: normal affect Attitude: cooperative Thought process: Normal thought process present Coding Level of Care Code Est Pt Level 4 (06554) Diagnoses Mixed hyperlipidemia E78.2 Hyperlipidemia type: mixed hyperlipidemia Gastroesophageal reflux disease with esophagitis without hemorrhage K21.00 Esophagitis bleeding: without hemorrhage Esophagitis presence: with esophagitis Iron deficiency anemia, unspecified iron deficiency anemia type D50.9 Anemia type: iron deficiency Iron deficiency anemia type: unspecified iron deficiency Chest pain at rest R07.9 BRENTON (generalized anxiety disorder) F41.1 Assessment & Plan Assessment & Plan (1) HLD (hyperlipidemia): Code(s): E78.5 - Hyperlipidemia, unspecified Category: Medical Qualifiers: Hyperlipidemia type: mixed hyperlipidemia Qualified Code(s): E78.2 - Mixed hyperlipidemia Plan: Patient's most recent lipid panel showing good control over total cholesterol and LDL. She has not been taking cholesterol medication for quite some time now and will continue to hold her statin therapy. For now patient's cholesterol is diet controlled will continue to work on dietary modifications. Goal LDL is to be below 130 (2) GERD (gastroesophageal reflux disease): Code(s): K21.9 - Gastro-esophageal reflux disease without esophagitis Category: Medical Qualifiers: Esophagitis bleeding: without hemorrhage Esophagitis presence: with esophagitis Qualified Code(s): K21.00 - Gastro-esophageal reflux disease with esophagitis, without bleeding Plan: Patient continues to have GERD type symptoms even with the use of her PPI therapy, has followed up with GI whom recommended cardiac workup to evaluate for potential cause of her intermittent chest discomfort. She attributes some of the his chest discomforts to stress and anxiety due to personal issues. . (3) Anemia: Code(s): D64.9 - Anemia, unspecified Category: Medical Qualifiers: Anemia type: iron deficiency Iron deficiency anemia type: unspecified iron deficiency Qualified Code(s): D50.9 - Iron deficiency anemia, unspecified Plan: Patient's anemia has stabilized. Will continue to follow CBC (4) Chest pain at rest: Code(s): R07.9 - Chest pain, unspecified Category: Medical Plan: As above will try for Isra protocol stress test to evaluate for any cardiac ischemia on exertion. Of note patient does have a strong family history of cardiac disease (5) BRENTON (generalized anxiety disorder): Code(s): F41.1 - Generalized anxiety disorder Category: Medical Plan: The patient has a history of anxiety, particularly during stressful periods, and is considering seeing a therapist again. Restarting anxiety medication is discussed, with Wellbutrin as a potential option due to its dual benefits for weight and mental health. Orders: Orders CA stress test 05/13/25 R07.9 - Chest pain, unspecified Referrals Counseling Referral F41.1 - Generalized anxiety disorder, Z13.220 - Encounter for screening for lipoid disorders Medications: New bupropion HCl SR (Wellbutrin SR) 150 mg PO DAILY 30 tabs 1RF 30 days F41.1 - Generalized anxiety disorder Refilled pantoprazole 40 mg PO DAILY 90 tabs 1RF 90 days K21.9 - Gastro-esophageal reflux disease without esophagitis sennosides (Senna Laxative) 8.6 mg PO BEDTIME 90 tabs 1RF K59.04 - Chronic idiopathic constipation zolpidem 10 mg PO BEDTIME 10 tabs 3RF sleep 10 days F51.01 - Primary insomnia phentermine must administer 30 minutes before or 1-2 hours after breakfast 37.5 mg PO DAILY 30 caps 0RF 30 days E66.811 - Obesity, class 1
[2025-05-13 15:08] VITALS: BP 130/70; PULSE 99; TEMP -12.6; TEMP 9.3; O2SAT 93; BMI 29.1
--- OUTSIDE RECORDS SUMMARY | 2025-05-13 17:11 | XMS_ITS | Clinical Summary ---
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 Role Phone Mychal Maldonado Primary [...] older (Afluria) 3 years and older 08/19/2014,06/09/2013,07/03/2011 [employer] SARS-CoV-2 COVID-19, mRNA, LNP-S, preservative free 10/27/2020 Surgical History Surgery Date Site/Laterality Comments KIDNEY STONE SURGERY PROCEDURE: [place] NEPHROLITHOTOMY REMOVAL CALCULUS Medical History Medical History [...] 70 12/06/2024 6:14 PM EDT Temperature 37 C (98.6 F) 12/06/2024 6:14 PM EDT Respiratory Rate 16 [...] 08/19/2022 10/09/2013 Colorectal Cancer Screening: Colonoscopy 08/19/2022 HIV Screening 08/19/2022 Social Influencers of Health Screening 08/19/2022 COVID-19 Vaccine ( season) 2024 07/24/2021, 11/20/2020, 10/27/2020 Depression Screening 09/10/2024 Influenza Vaccine (#1) 2025 5, 11/17/2023, 08/01/2022, Additional history exists Hypertension/CHF/CAD Annual BMP Blood Test 12/06/2025 12/06/2024, 03/15/2022 Breast Cancer Screening 11/26/2026 11/27/19 25, 11/26/2023, 03/23/2022, Additional history exists Cervical Cancer Screening: HPV 10/17/2029 10/17/2024, 03/15/2022 DTaP,Tdap,and Td Vaccines (3 - Td or Tdap) 11/16/2033 11/17/2023, 04/18/2018 Hepatitis C Screening Completed 03/26/2018 Zoster Vaccines Completed 03/15/2021, 10/07/2020 HIB Vaccines Aged Out No longer eligi [...] Procedure Name Priority Date/Time Associated Diagnosis Comments COMPREHENSIVE METABOLIC PANEL STAT 12/06/2024 1:27 PM EDT MG MAMMO DIGITAL SCREENING W CHARISMA BILAT Routine 11/26/2024 11:49 AM EDT Encounter for well woman exam with routine gynecological exam Screening breast examination HPV WITH REFLEX GENOTYPE Routine 10/17/2024 10:04 AM EST Encounter for well woman exam with routine gynecological exam Screening for cervical cancer HM HEPATITIS C SCREENING Routine 03/26/2018 LIPID PANEL Routine 10/09/2013 from Last 3 Months or Most Recently Relevant to Health Maintenance Results * (ABNORMAL) Comprehensive metabolic panel (12/06/2024 1:27 PM EDT) Sodium 143 133 - 145 mmol/L LAB CHEMISTRY METHOD 12/06/2024 2:[address] [facility] Potassium 4.0 3.5 - 5.5 mmol/L LAB CHEMISTRY METHOD 12/06/2024 2:[address] [facility] Chloride 109 96 - 110 mmol/L LAB CHEMISTRY METHOD 12/06/2024 2:[address] [facility] CO2 26 21 - 32 mmol/L LAB CHEMISTRY METHOD 12/06/2024 2:[address] [facility] Anion Gap 8 3 - 11 LAB CHEMISTRY METHOD 12/06/2024 2:[address] [facility] Glucose 101(H) 70 - 100 mg/dL LAB CHEMISTRY METHOD 12/06/2024 2:[address] [facility] BUN 11 5 - 25 mg/dL LAB CHEMISTRY METHOD 12/06/2024 2:[address] [facility] Creatinine 0.61 0.50 - 1.10 mg/dL LAB CHEMISTRY METHOD 12/06/2024 2:[address] [facility] eGFR 106 >=60 mL/min/1. 73m2 LAB CHEMISTRY METHOD 12/06/2024 2:[address] [facility] Comment:Calculation based on the Chronic Kidney Disease Epidemiology Collaboration (CKD-EPI) equation refit without adjustment for race. BUN/Creatinine Ratio 18.0 LAB CHEMISTRY METHOD 12/06/2024 2:[address] [facility] Calcium 9.6 8.5 - 10.5 mg/dL LAB CHEMISTRY METHOD 12/06/2024 2:[address] [facility] AST (SGOT) 17 10 - 42 unit/L LAB CHEMISTRY METHOD 12/06/2024 2:12 PM EDT [facility] ALT (SGPT) 21 10 - 60 unit/L LAB CHEMISTRY METHOD 12/06/2024 2:12 PM EDT [facility] Alkaline Phosphatase 100 42 - 121 unit/L LAB CHEMISTRY METHOD 12/06/2024 2:12 PM EDT [facility] Total Protein 7.2 6.0 - 8.0 g/dL LAB CHEMISTRY METHOD 12/06/2024 2:12 PM EDT [facility] Albumin 3.8 3.2 - 5.0 g/dL LAB CHEMISTRY METHOD 12/06/2024 2:12 PM EDT [facility] Total Bilirubin 0.5 0.0 - 1.4 mg/dL LAB CHEMISTRY METHOD 12/06/2024 2:12 PM EDT [facility] Blood Venous blood specimen / Unknown Venipuncture / Unknown 12/06/2024 1:27 PM EDT 12/06/2024 1:39 PM EDT us Carlton Grant Olman Harvey DO LAB BLOOD ORDERABLES Suzan l Result [facility] [address] [place] [address], [place] [phone] * MG Mammo Digital Screening w Charisma bilat (11/26/2024 11:49 AM EDT) Anatomical Region Laterality Modality Breast Bilateral Mammography 11/26/2024 4:00 PM EDT Impressions 11/26/2024 4:12 PM EDT No evidence of breast malignancy. BI-RADS CATEGORY: 1 - NEGATIVE RECOMMENDATION: Screening bilateral mammogram is recommended in 1 year. Mammo Location: [facility], [address] [place] [address], [id number], . -------- FINAL REPORT -------- Dictated By: Veronica Akhtar Dictated Date: 11/26/2024 16:00 ET Assigned Physician: Veronica Akhtar Reviewed and Electronically Signed By: Veronica Akhtar Signed Date: 11/26/2024 16:12 ET Workstation ID: [id number] Transcribed By: Self Edit Transcribed Date: 11/26/2024 [...] evidence of suspicious mass or architectural distortion. No worrisome calcifications are evident. There has been no significant change from prior exam(s). BREAST DENSITY: B - [...] year. Mammo Location: [facility], [address] [place] [address], [address], . -------- FINAL REPORT -------- Dictated By: Veronica Akhtar Dictated Date: 11/26/2024 16:00 ET Assigned Physician: Veronica Akhtar Reviewed and Electronically Signed By: Veronica Akhtar Signed Date: 11/26/2024 16:12 ET Workstation ID: [id number] Transcribed By: Self Edit Transcribed Date: 11/26/2024 16:00 ET Odette Rubi CNM IMG BI PROCEDURES Final Resul t * HPV with reflex genotype (10/17/2024 10:04 AM EST) Pathologist [facility] HPV Negative Negative LAB MICROBIOLOGY METHOD 10/20/2024 3:10 PM EST [facility] Brushing/Spatula Cervix uteri structure / Unknown 10/17/2024 10:04 AM EST 10/20/2024 6:05 AM EST Odette Rubi CNM LAB MOLECULAR DIAGNOSTICS ORD ERABLES Final Result [facility] [address] [place] [address], * Hepatitis C Screening (03/26/2018) Pathologist [facility] Hepatitis C Screening Abstracted Historical Provider HEALTH MAINTENANCE Final Result * (ABNORMAL) Lipid panel (10/09/2013) Pathologist [facility] LDL/HDL Ratio 3 0 - 4 Triglycerides 248(A) 0 - 150 mg/dL Cholesterol 187 0 - 200 mg/dL HDL 65 >=40 mg/dL LDL Cholesterol 73 0 - 100 mg/dL Blood Venous blood specimen / Unknown Historical Provider LAB BLOOD ORDERABLES Suzan l Result from Last 3 Months or Most Recently Relevant to Health Maintenance Insurance [facility] [facility] Care Teams Rail Project Engineer Relationship Specialty Start Date End Date Mychal Maldonado PA PCP - General Physician Purchasing Specialist 12/06/24
--- OUTSIDE RECORDS SUMMARY | 2025-05-13 17:11 | XMS_ITS | Patient Health Record ---
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 Name Role Phone Mychal Maldonado Primary Care Provider Unavailab Víctor Dong Jr Unavailable Osman Delgado Unavailable Unavailable Allergies No Known Allergies Reason For Referral No Information Medications Medication SIG (Take, Route, Frequency, Duration) Notes Start Date End Date Status Esomeprazole Magnesium 40 MG 1 capsule 1/2 to 1 hour before morning meal Orally Once a day for 30 days 03/23/2025 Active Immunizations Vaccine Route Administration Date Status Comme nts Influenza Unknown 06/10/2020 Administered Influenza Unknown 07/20/2021 Administered Influenza Unknown 08/01/2022 Administered Influenza Unknown 06/25/2024 Administered Social History Tobacco Use: Social History [...] Problem Status W/U Status Risk Notes Problem 480557384 Colon cancer screening (Z12.11) Active confirmed Problem 861407759 Bloating (R14.0) Active confirmed Problem 596076495 Encounter for other preprocedural examination (Z01.818) Active confirmed Problem Gastroesophageal reflux disease (509201112) Gastroesophageal reflux disease (K21.9) Active confirmed Problem 682748959 Gastroesophageal reflux disease without esophagitis (K21.9) Active confirmed Problem 41369169 Constipation, unspecified constipation type (K59.00) Active confirmed Problem 4558678 Proctitis (K62.89) Active confirmed Problem 02369487 Chest pain, unspecified type (R07.9) Active confirmed Problem 613140393 Gastroesophageal reflux disease, unspecified whether esophagitis present (K21.9) Active confirmed Vital Signs Temperature 97.4 degrees Fahrenheit 03/23/2025 Blood pressure diastolic 01 mm Hg 03/23/2025 Height 63 in 03/23/2025 Blood pressure systolic 001 mm Hg 03/23/2025 Weight 167.8 lbs 03/23/2025 BMI 29.72 kg/m2 03/23/2025 Encounters Encounter Location Date Provider Diagnosis [facility] [address] [place] [address] 03/23/2025 Víctor Soni Jr Gastroesophageal reflux disease, unspecified whether esophagitis present K21.9 and Colon cancer screening Z12.11 Assessments Encounter Date Diagnosis (ICD Code) Assessment Notes Treatment Notes Treatment Clinical Notes Section Notes 03/23/2025 Gastroesophageal reflux disease, unspecified whether esophagitis present (ICD-10 - K21.9) We discussed her symptoms today. We discussed diet, lifestyle modifications, and weight management. She will try to lose weight. We will stop omeprazole and start Nexium to see if this works better for her symptoms. If she has persistent symptoms then she could undergo repeat endoscopy. She will call in a month and let us know how she is doing. Also, she can use OTC simethicone as needed for gas. We discussed this today. She is up-to-date on colonoscopy. 03/23/2025 Colon cancer screening (ICD-10 - Z12.11) We discussed her symptoms today. We discussed diet, lifestyle modifications, and weight management. She will try to lose weight. We will stop omeprazole and start Nexium to see if this works better for her symptoms. If she has persistent symptoms then she could undergo repeat endoscopy. She will call in a month and let us know how she is doing. Also, she can use OTC simethicone as needed for gas. We discussed this today. She is up-to-date on colonoscopy. Plan Of Treatment Future Test Test Name Order Date COLONOSCOPY 01/28/2021 UPPER GI ENDOSCOPY 08/17/2021 Next Appt Details Provider Name:Víctor do , 03/24/2026 10:10:00 AM, [address] [place] [address], [address], [place], [address], Insurance Providers Payer Name Payer Address Payer Phone Subscriber Number Group Number Insured Name Patient Relationship to Insured Coverage Start Date Coverage End Date [facility] [address] [address] [place], [place] [id number] SLOAN FITZPATRICK Self - patient is the insured Medical (General) History Medical History History ICD Code hx of kidney stones Gastroesophageal reflux dise ase, EGD 09/16/21, no Causey's esophagus or H. pylori Elevated cholesterol Atypical chest pain, [facility] iolDr. Naty king Colonoscopy 02/04/21, mild pr octitis, treated with 8 weeks of mesalamine. Ten-year followup Surgical History Surgery Date(Month/Year) kidney stones Hospitalization History Reason Date(Month/Year)
== END 2025-05-13 15:39 | disposition home or self-care (01) ==
LOC: HO.HMCH 15:02
PROVIDERS: PCP Physician Assistant; Visit Provider Physician Assistant
DX: E78.2 Mixed hyperlipidemia (principal); K21.00 Gastro-esophageal reflux disease with esophagitis, without bleeding; D50.9 Iron deficiency anemia, unspecified; R07.9 Chest pain, unspecified; F41.1 Generalized anxiety disorder

== ENCOUNTER → 2025-05-13 15:01 | Outpatient (BNVA) | payer OTHER, SELFPAY | PROVIDERS: PCP Physician Assistant; Visit Provider Physician Assistant | DX: F41.1 Generalized anxiety disorder (principal); F42.9 Obsessive-compulsive disorder, unspecified; E78.5 Hyperlipidemia, unspecified; K21.9 Gastro-esophageal reflux disease without esophagitis; D50.9 Iron deficiency anemia, unspecified; E78.2 Mixed hyperlipidemia; K21.00 Gastro-esophageal reflux disease with esophagitis, without bleeding; R07.9 Chest pain, unspecified; K59.04 Chronic idiopathic constipation; F51.01 Primary insomnia; E66.811 Obesity, class 1; Z68.29 Body mass index [BMI] 29.0-29.9, adult | CPT/HCPCS: 99212 ==

== ENCOUNTER → 2025-06-12 09:52 | Outpatient (REF) | payer OTHER, SELFPAY ==
--- OUTSIDE RECORDS SUMMARY | 2023-12-31 06:00 | XMS_ITS ---
Author Organization [facility] Address [address] [place] [address] Care Team Providers Care New Accounts Banking Representative Name Role Phone Mychal Maldonado Primary Care Provider Unavailab Víctor Dong Jr Unavailable Osman Delgado Unavailable Unavailable REASON FOR VISIT gerd Encounters Encounter Location Date Provider Diagnosis [facility] [address] [place] [phone] 12/31/2023 Víctor Soni Jr Plan Of Treatment Next Appt Details Provider Name:Víctor do Jr, 03/24/2026 10:10:00 AM, [address] [facility], [address], [place], [address], Progress Notes * SLOAN FITZPATRICKDOB: 0 (55 yo F)Acc No.[id number]:12/31/2023 Progress Notes Patient: SLOAN RAMIREZ Provider: Guille Soni MD :1970 A ge:53 Y S ex:Female Date:12/31/2023 Address:[address] [place] [address] Pcp:Mychal Maldonado Subjective: * Chief Complaints: * 1 . Gerd. * Medical History: Objective: * Vitals: Assessment: Plan: * Treatment: * * The named appointment provid er may or may not be the originator of this progress note, and it is not deemed complete until electronically signed by the appointment provider. Sign off status: Pending * Provider: Guille Soni MD Date: 0 12/31/2023 Generated for Clair umaña/Marla/Shari on: 1 10:31 AM EDT
--- OUTSIDE RECORDS SUMMARY | 2024-01-07 09:55 | XMS_ITS ---
Author Organization [facility] Address [address] [place] [address] [place] [phone] Care Team Providers Care Hourly Caregiver Name Role Phone Mychal Maldonado Primary Care Provider Unavailab Víctor Dong Jr Unavailable [phone] Osman Delgado Unavailable Unavailable REASON FOR VISIT Patient presents today for gerd Encounters Encounter Location Date Provider Diagnosis [facility] [address] [place] [phone] 01/07/2024 Víctor Soni Jr Plan Of Treatment Next Appt Details Provider Name:Víctor do Jr, 03/24/2026 10:10:00 AM, [address] [place] [address], Suite [facility], [place], [address], Progress Notes * SLOAN FITZPATRICKDOB: 0 (55 yo F)Acc No.[id number]:01/07/2024 Progress Notes Patient: SLOAN RAMIREZ Provider: Guille Soni MD :1970 A ge:54 Y S ex:Female Date:01/07/2024 Address:[address] [place] [address] Pcp:Mychal Maldonado Subjective: * Chief Complaints: * 1 . Patient presents today for gerd. * Medical History: Objective: * Vitals: Assessment: Plan: * Treatment: * * The named appointment provid er may or may not be the originator of this progress note, and it is not deemed complete until electronically signed by the appointment provider. Sign off status: Pending * Provider: Guille Soni MD Date: 0 01/07/2024 Generated for Clair umaña/Marla/Shari on: 1 10:31 AM EDT
--- NOTE | 2025-06-12 10:03 | CA_ITS ---
Acquisition Time: 2025-06-12 10:44:05 Total Exercise Time: 00:07:19 Test Indications: CHEST PAIN Medications: ASA Protocol: CONRAD Max HR: 153 BPM 92% of Pred: 165 BPM Max BP: 134/82 mmHG Max Work Load: 8.9 METS Exercise stress test with exercise 7 min 19 sec of Conrad protocol, achieving 86% MPHR, without anginal symptoms, with isolated PACs, with normotensive response to exercise, without EKG changes meeting criteria for ischemia. Baseline ST/ Twave abnormality improved some with exercise and returned in recovery. Test reviewed with Dr Andersen. Referred By: Mychal Maldonado Electronically Signed By: ALYSIA ACEVES
--- OUTSIDE RECORDS SUMMARY | 2025-06-12 10:32 | XMS_ITS | Clinical Summary ---
Author Organization [facility] Address [address] [place] [address] Phone Care Team Providers Care Head Of Ethics And Compliance Name Role Phone Mychal Maldonado Primary Care [...] 09/19/2011 Tension headache 04/28/2011 Anemia 04/04/2011 Immunizations Immunization Administration Dates Next Due Influenza trivalent, 0.5mL, preservative free (Fluarix; FluLaval; Fluzone) ages 6mo and older (Afluria) 3 years and older 08/19/2014,06/09/2013,07/03/2011 [facility] SARS-CoV-2 COVID-19, mRNA, LNP-S, preservative free 10/27/2020 Surgical History Surgery Date Site/Laterality Comments KIDNEY STONE SURGERY PROCEDURE: SD NEPHROLITHOTOMY REMOVAL CALCULUS Medical History Medical History [...] Health Maintenance Due Date Last Done Comments Colorectal Cancer Screening: Colonoscopy 1970 Hepatitis B Vaccines (1 of 3 - 19+ 3-dose series) 1989 Pneumococcal Vaccine: 50+ Years (1 of 1 - PCV) 01/02/2020 Cholesterol Screening (Lipid Panel) 08/19/2022 10/09/2013 HIV Screening 08/19/2022 Social Influencers of Health Screening 08/19/2022 Depression Screening 09/10/2024 COVID-19 Vaccine ( season) 2025 07/24/2021, 11/20/2020, 10/27/2020 Influenza Vaccine (#1) 2025 , 11/17/2023, 08/01/2022, Additional history exists Hypertension/CHF/CAD Annual BMP Blood Test 12/06/2025 12/06/2024, 03/15/2022 Breast Cancer Screening 11/26/2026 11/27/19 25, 11/26/2023, 03/23/2022, Additional history exists Cervical Cancer Screening: HPV 10/17/2029 10/17/2024, 03/15/2022 DTaP,Tdap,and Td Vaccines (3 - Td or Tdap) 11/16/2033 11/17/2023, 04/18/2018 RSV Immunization Adult Patients (1 - 1-dose 75+ series) 2045 Hepatitis C Screening Completed 03/26/2018 Zoster Vaccines [...] mmol/L LAB CHEMISTRY METHOD 12/06/2024 2:12 PM [facility] Potassium 4.0 3.5 - 5.5 mmol/L LAB CHEMISTRY METHOD 12/06/2024 2:12 PM [facility] Chloride 109 96 - 110 mmol/L LAB CHEMISTRY METHOD 12/06/2024 2:12 PM [facility] CO2 26 21 - 32 mmol/L LAB CHEMISTRY METHOD 12/06/2024 2:12 PM [facility] Anion Gap 8 3 - 11 LAB CHEMISTRY METHOD 12/06/2024 2:12 PM [facility] Glucose 101(H) 70 - 100 mg/dL LAB CHEMISTRY METHOD 12/06/2024 2:12 PM [facility] BUN 11 5 - 25 mg/dL LAB CHEMISTRY METHOD 12/06/2024 2:12 PM [facility] Creatinine 0.61 0.50 - 1.10 mg/dL LAB CHEMISTRY METHOD 12/06/2024 2:12 PM [facility] eGFR 106 >=60 mL/min/1. 73m2 LAB CHEMISTRY METHOD 12/06/2024 2:12 PM [facility] Comment:Calculation based on the Chronic Kidney Disease Epidemiology Collaboration (CKD-EPI) equation refit without adjustment for race. BUN/Creatinine Ratio 18.0 LAB CHEMISTRY METHOD 12/06/2024 2:12 PM [facility] Calcium 9.6 8.5 - 10.5 mg/dL LAB CHEMISTRY METHOD 12/06/2024 2:12 PM [facility] AST (SGOT) 17 10 - 42 unit/L LAB CHEMISTRY METHOD 12/06/2024 2:[address] [facility] ALT (SGPT) 21 10 - 60 unit/L LAB CHEMISTRY METHOD 12/06/2024 2:[address] [facility] Alkaline Phosphatase 100 42 - 121 unit/L LAB CHEMISTRY METHOD 12/06/2024 2:[address] [facility] Total Protein 7.2 6.0 - [...] l Result [facility] [address] [place] [address], [place] [phone] * MG Mammo Digital Screening w Yomi bilat (11/26/2024 11:49 AM EDT) Anatomical Region Laterality Modality Breast Bilateral Mammography 11/26/2024 4:00 PM EDT Impressions 11/26/2024 4:12 PM EDT No evidence of breast malignancy. BI-RADS CATEGORY: 1 - NEGATIVE RECOMMENDATION: Screening bilateral mammogram is recommended in 1 year. Mammo Location: [facility], [address], [place], [address], . -------- FINAL REPORT -------- Dictated By: Veronica Akhtar Dictated Date: 11/26/2024 16:00 ET Assigned Physician: Veronica Akhtar Reviewed and Electronically Signed By: Veronica Akhtar Signed Date: 11/26/2024 16:12 ET Workstation ID: [id number] Transcribed By: Self Edit Transcribed Date: 11/26/2024 [...] year. Mammo Location: [facility], [address] [place] [address], [address], . -------- FINAL REPORT -------- Dictated By: Veronica Akhtar Dictated Date: 11/26/2024 16:00 ET Assigned Physician: Veronica Akhtar Reviewed and Electronically Signed By: Veronica Akhtar Signed Date: 11/26/2024 16:12 ET Workstation ID: [id number] Transcribed By: Self Edit Transcribed Date: 11/26/2024 16:00 ET Odette Rubi CNM IMG BI PROCEDURES Final Resul t * HPV with reflex genotype (10/17/2024 10:04 AM EST) Pathologist [facility] HPV Negative Negative LAB MICROBIOLOGY METHOD 10/20/2024 3:[address] [facility] Brushing/Spatula Cervix uteri structure / Unknown 10/17/2024 10:04 AM EST 10/20/2024 6:05 AM EST Odette Rubi CNM LAB MOLECULAR DIAGNOSTICS ORD ERABLES Final Result [facility] [address] [place] [address], * Hepatitis C Screening (03/26/2018) Pathologist [facility] Hepatitis C Screening Abstracted Historical Provider HEALTH MAINTENANCE Final Result * (ABNORMAL) Lipid panel (10/09/2013) Pathologist [facility] LDL/HDL Ratio 3 0 - 4 Triglycerides 248(A) 0 - 150 mg/dL Cholesterol 187 0 - 200 mg/dL HDL 65 >=40 mg/dL LDL Cholesterol 73 0 - 100 mg/dL Blood Venous blood specimen / Unknown Historical Provider LAB BLOOD ORDERABLES Suzan l Result from Last 3 Months or Most Recently Relevant to Health Maintenance Insurance [facility] [facility] Care Teams Head Of Ethics And Compliance Relationship Specialty Start Date End Date Mychal Maldonado PA PCP - General Physician Hay Buckler 12/06/24
--- OUTSIDE RECORDS SUMMARY | 2025-06-12 10:32 | XMS_ITS | Patient Health Record ---
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 Name Role Phone Mychal Maldonado Primary [...] Problem Status W/U Status Risk Notes Problem 693404808 Colon cancer screening (Z12.11) Active confirmed Problem 132212469 Bloating (R14.0) Active confirmed Problem 825983932 Encounter for other preprocedural examination (Z01.818) Active confirmed Problem Gastroesophageal reflux disease (523891180) Gastroesophageal reflux disease (K21.9) Active confirmed Problem 205666976 Gastroesophageal reflux disease without esophagitis (K21.9) Active confirmed Problem 32398440 Constipation, unspecified constipation type (K59.00) Active confirmed Problem 9413972 Proctitis (K62.89) Active confirmed Problem 85666017 Chest pain, unspecified type (R07.9) Active confirmed Problem 362958120 Gastroesophageal reflux disease, unspecified whether esophagitis present (K21.9) Active confirmed Vital Signs Temperature 97.4 degrees Fahrenheit 03/23/2025 Blood pressure diastolic 01 mm Hg 03/23/2025 Height 63 in 03/23/2025 Blood pressure systolic 001 mm Hg 03/23/2025 Weight 167.8 lbs 03/23/2025 BMI 29.72 kg/m2 03/23/2025 Encounters Encounter Location Date Provider Diagnosis [facility] [address] [place] [address] 03/23/2025 Víctor Soni Jr Gastroesophageal reflux disease, [...] Provider Name:Víctor do , 03/24/2026 10:10:00 AM, [address] [place] [address], [address], [place], [address], Insurance Providers Payer Name Payer Address Payer Phone Subscriber Number Group Number Insured Name Patient Relationship to Insured Coverage Start Date Coverage End Date [facility] [address] [address] [place], [place] [id number] SLOAN FITZPATRICK Self - patient is the insured Medical (General) History Medical History History ICD Code hx of kidney stones Gastroesophageal reflux dise ase, EGD 09/16/21, no Causey's esophagus or H. pylori Elevated cholesterol Atypical chest pain, [facility] iolDr. Naty king Colonoscopy 02/04/21, mild pr octitis, treated with 8 weeks of mesalamine. Ten-year followup Surgical History Surgery Date(Month/Year) kidney stones Hospitalization History Reason Date(Month/Year)
== END ==
LOC: HO.CARD 09:52
PROVIDERS: PCP Physician Assistant; Visit Provider Physician Assistant
DX: R07.9 Chest pain, unspecified (principal)
CPT/HCPCS: 93017

== ENCOUNTER → 2025-06-12 10:03 | Outpatient (BNV) | payer OTHER, SELFPAY | PROVIDERS: PCP Physician Assistant; Visit Provider Nurse Practitioner Family | DX: I49.1 Atrial premature depolarization (principal) | CPT/HCPCS: 93016; 93018 ==

== ENCOUNTER 2025-07-06 12:54 | Outpatient (AMB) | payer OTHER, SELFPAY ==
--- OUTSIDE RECORDS SUMMARY | 2024-01-07 09:55 | XMS_ITS ---
Author Organization [facility] Address [address] [place] [address] [place] [phone] Care Team Providers Care Field Superintendent Name Role Phone Mychal Maldonado Primary Care Provider Unavailab Víctor Dong Jr Unavailable Osman Delgado Unavailable Unavailable REASON FOR VISIT Patient presents today for gerd Encounters Encounter Location Date Provider Diagnosis [facility] [address] [place] [phone] 01/07/2024 Víctor Soni Jr Plan Of Treatment Next Appt Details Provider Name:Víctor do Jr, 03/24/2026 10:10:00 AM, [address] [place] [address], Suite [facility], [place], [address], Progress Notes * SLOAN FITZPATRICKDOB: 0 (55 yo F)Acc No.[id number]:01/07/2024 Progress Notes Patient: SLOAN RAMIREZ Provider: Guille Soni MD :1970 A ge:54 Y S ex:Female Date:01/07/2024 Address:[address] [place] [address] Pcp:Mychal Maldonado Subjective: * Chief Complaints: * [...] 01/07/2024 Generated for Clair umaña/Marla/Shari on: 1 04:24 PM EDT
--- NOTE | 2025-07-06 12:58 | A.OFFPC_ITS ---
Vital Signs 07/06/25 13:01 Height 5 ft 3 in Weight 166 lb BMI 29.4 BP 122/72 Blood Pressure Location Lt brachial Position Sitting Pulse 89 Pulse Source Pulse Oximeter Temp 97.3 F Temp Source Temporal Artery Scan Pulse Oximetry (%) 97 Oxygen Delivery Method Room Air Intake Visit Reasons: 8 Weeks Intake Note: Patient is here to follow up on Anxiety, GERD. Communications Technologist Required: No Car Cleaning Supervisor: Not Required per policy Accompanied by: Self / Same As Patient Allergies No Known Allergies Allergy (Verified 07/06/25 13:14) Medication List - Last Reconciled 07/06/25 by Mychal Maldonado PA-C aspirin 81 mg PO DAILY diclofenac sodium 3% 1 appl topical BID 30 days hydroxyzine HCl 25 mg PO BEDTIME 90 days methocarbamol 500 mg PO TID multivitamin (Daily Multi-Vitamin tablet) 1 tab PO DAILY 90 days pantoprazole 40 mg PO DAILY 90 days phentermine 37.5 mg PO DAILY 30 days sennosides (Senna Laxative) 8.6 mg PO BEDTIME sumatriptan succinate 25 mg orally; 30 days zolpidem 10 mg PO BEDTIME 10 days Tobacco use date assessed: 07/06/25 Dental Screening Dental Screen Date: 11/04/24 HPI 8 Weeks HPI Details Pateint is a 55 year-old female here today for follow-up visit, Patient's past medical history significant for major depressive disorder,, OCD, Anxiety, hyperlipidemia? iron deficiency anemia. . . Anxiety/insomnia: The patient reports insomnia, attributing it to stress and personal issues, and is considering seeing a therapist again. She has not been taking any anxiety medication recently and has a history of anxiety, particularly during stressful periods. Of note patient was previously on Lexapro, wellbutrin, and BuSpar. She reports these previous medications not helpful. She is on clonazepam years ago which did offer her some anxiety relief. Patient is interested in trying new medication to help her anxiety. She will be getting set up with a mental health therapist at some point soon. [facility] Medical History BRENTON (generalized anxiety disorder) Acute respiratory disease Abnormal EKG Chronic upper abdominal pain COVID-19 vaccine series completed Sleep apnea Anemia Iron deficiency Constipation Lumbar spine pain Insomnia Surgical History H/O colonoscopy (~02/04/21) History of extraction of renal calculus Family History Mother Diabetes Fibromyoma Anemia Depression Hypertension Asthma CVA (cerebral vascular accident) Father No problems noted. 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 Current occupational exposures/hazards: No Cognitive needs: No Hearing needs: No Vision needs: No Questionnaire Thrive Questionnaire Date Thrive assessed: 10/28/24 I am a: Patient What is your living situation today?: I have a steady place to live Within the past 12 months, did the food you bought not last and you didn't have the money to get more?: Never true Within the past 12 months, did you worry whether your food would run out before you got money to buy more?: Never true Do you have trouble paying for medicines?: Yes Do you have trouble getting transportation to medical appointments?: No Do you have trouble paying your heating and electricity bill?: Yes Do you have trouble taking care of your child, family member or friend?: No Do you have trouble with day-to-day activities such as bathing, preparing meals, shopping, managing finances, etc.?: No Are you currently unemployed and looking for a job?: Yes Are you interested in more education?: No Currently or been in a relationship where the following occur: No concerns reported THRIVE Score: 1 BRENTON-7 AMB Questionnaire BRENTON-7 Date BRENTON - 7 assessed: 07/06/25 Feeling nervous, anxious, or on edge: 1 = Several days Not being able to stop or control worryin = Several days Worrying too much about different things: 1 = Several days Trouble relaxin = Several days Being so restless that it is hard to sit still: 2 = More than half the days Becoming easily annoyed or irritable: 1 = Several days Feeling afraid as if something awful might happen: 1 = Several days Total BRENTON-7 score (0-4 normal; 5-9 mild; 10-14 moderate; 15-21 severe): 8 Source: Developed by Drs. Drake Farris, Joyec Acuna, Valente Klein and colleagues, with an educational leo from [employer]. BRENTON-7 Assessment Billing BRENTON-7 Assessment Tool: BRENTON-7 Assessment 00986 Review of Systems Const Denies headache(s) Eyes Denies loss of vision ENT Denies vertigo, Denies dizziness, Denies headache(s) and Denies sore throat Card Denies chest pain, Denies leg edema and Denies lightheadedness Resp Denies cough, Denies hemoptysis and Denies wheezing GI Denies abdominal pain, Denies melena, Denies constipation, Denies diarrhea and Denies vomiting Denies urinary frequency, Denies dysuria and Denies urinary urgency Musc Denies arthralgias, Denies joint swelling, Denies numbness and Denies tingling Neuro Denies Abnormal speech present, Denies behavioral changes, Denies vertigo, Denies dizziness, Denies headache(s), Denies loss of vision, Denies memory loss, Denies numbness and Denies tingling Psych Denies anxiety, Denies behavioral changes, Denies depression, Denies memory loss and Denies panic attacks Jos/Lymph Denies easy bleeding and Denies easy bruising Aller/Immun Denies wheezing Physical exam (Primary Care) Vital Signs: Last Vital Signs Temp 97.3 F 07/06/25 13:01 Pulse 89 07/06/25 13:01 BP 122/72 07/06/25 13:01 Pulse Ox 97 07/06/25 13:01 Oxygen Delivery Method Room Air 07/06/25 13:01 BMI result Body Mass Index 29.4 Tobacco/Smoking Status: Tobacco use Status Tobacco use date assessed 07/06/25 07/06/25 13:10 Patient Tobacco Use Status Former Tobacco user 07/06/25 12:59 Tobacco use type Cigarette 07/06/25 12:59 e-Cigarette/Vaping Use Never Used 07/06/25 12:59 Thrive Assessment: Date of Thrive Assessment Date Thrive assessed 10/28/24 07/06/25 12:59 Currently or been in a relationship where the following occur: No concerns reported Const General: healthy appearing, no acute distress, alert and awake Nutritional Appearance: well nourished Orientation/consciousness: oriented to person, oriented to place and oriented to time HENMT Ears: TM's normal bilaterally General nose exam: Normal nasal mucous membranes and turbinates present Eyes Conjunctivae: conjunctivae normal Sclerae: sclerae normal Pupils: Equal, round and reactive pupils present Neck Neck: Yes no lymphadenopathy and Yes no JVD Thyroid: Thyroid normal Carotids: no bruits Resp Effort & Inspection: normal respiratory effort and not tachypneic Auscultation: no crackles, no rales, no rhonchi and no wheezes Cardio Rate: regular rate Rhythm: regular rhythm Heart sounds: no murmurs and normal S1 and S2 GI Palpation (GI): Soft to palpation, nontender, no hepatomegaly and no splenomegaly Auscultation: normal bowel sounds Skin General skin exam: no rashes or lesions noted and dry skin Neuro General: oriented to person, oriented to place and oriented to time Cranial nerves: Yes Equal, round and reactive pupils present Speech: No Abnormal speech present Gait exam (Neuro): Normal gait present Motor exam (neuro): no tremor noted Extrem Right upper extremity: full ROM Left upper extremity: full ROM Right lower extremity: full ROM; no edema Left lower extremity: full ROM; no edema Psych Mental Status: mental status grossly normal Speech and movement: Normal speech and movement present Affect: normal affect Attitude: cooperative Thought process: Normal thought process present Immunizations pneumoc 20-donna conj-dip cr(PF) 0.5 mL IM syringe Performing Provider: Mychal Maldonado PA-C [facility] Administered by: Maria R Bower LPN on 07/06/25 13:53 Dose Route Admin Location Dispensed Lot Number Expiration Date [facility] [place]NOTE 2] Endoscopy Nurse 0.5 mL IM Left Deltoid 0.5 mL [id number] 07/10/26 [employer] Total Dispensed Waste 0.5 mL 0 % VIS Given Date VIS Provided VIS Publication Date 07/06/25 Single Vaccine 25 Eligibility Eligibility Date Funding Source Not [facility] Eligible 07/06/25 Private Coding Level of Care Code Est Pt Level 3 (64692) Diagnoses BRENTON (generalized anxiety disorder) F41.1 Additional Codes BRENTON-7 Assessment Billing - BRENTON-7 Assessment Tool: BRENTON-7 Assessment 83490 ([id number]) Assessment & Plan Assessment & Plan (1) BRENTON (generalized anxiety disorder): Code(s): F41.1 - Generalized anxiety disorder Category: Medical Plan: For management of anxiety, the patient will be started on fluoxetine 10 mg daily. It was explained that this is a maintenance medication that takes time to become effective and can be titrated up if necessary. The potential side effect of weight gain was discussed. For acute anxiety and panic attacks, a limited prescription of clonazepam 0.5 mg (8 tablets) will be provided for as-needed use. The risks of long-term benzodiazepine use, including memory issues and addiction potential, were reviewed, and the patient agreed to use it sparingly. The patient was strongly encouraged to continue her efforts to connect with a mental health therapist for counseling. A follow-up appointment is scheduled for a couple of months, after the New Year, to assess her response to the new medication regimen. Orders: Orders Pneumococcal 20 Immunization Today F41.1 - Generalized anxiety disorder, Z23 - Encounter for immunization Medications: New fluoxetine 10 mg PO DAILY 30 caps 1RF 30 days F41.1 - Generalized anxiety disorder clonazepam (Klonopin) 0.5 mg PO BID PRN 8 tabs 0RF panic attack(s) 4 days F41.1 - Generalized anxiety disorder Discontinued hydroxyzine HCl Discontinued Reason: Doctor's Order 25 mg PO BEDTIME 90 days 90 tabs 3RF phentermine must administer 30 minutes before or 1-2 hours after breakfast Discontinued Reason: Doctor's Order 37.5 mg PO DAILY 30 days 30 caps 0RF E66.811 - Obesity, class 1
[2025-07-06 13:01] VITALS: BP 122/72; PULSE 89; TEMP 36.3; O2SAT 97; BMI 29.4
--- OUTSIDE RECORDS SUMMARY | 2025-07-06 16:25 | XMS_ITS | Patient Health Record ---
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 Name Role Phone Mychal Maldonado Primary Care Provider Unavailab Víctor Dong Jr Unavailable Symone Delgadovelasquez Unavailable Unavailable Allergies No Known Allergies Reason For Referral No Information Medications Medication SIG (Take, Route, Frequency, Duration) Notes Start Date End Date Status Esomeprazole Magnesium 40 MG 1 capsule 1/2 to 1 hour before morning meal Orally Once a day; Duration: 30 days 03/23/2025 Active Immunizations Vaccine Route [...] Problem Status W/U Status Risk Notes Problem Colon cancer screening (688596079) Colon cancer screening (Z12.11) Active confirmed Problem Flatulence, eructation and gas pain (116981071) Bloating (R14.0) Active confirmed Problem Pre-procedure evaluation check (295135081) Encounter for other preprocedural examination (Z01.818) Active confirmed Problem Gastroesophageal reflux disease (155067184) Gastroesophageal reflux disease (K21.9) Active confirmed Problem Gastroesophageal reflux disease without esophagitis (305317727) Gastroesophageal reflux disease without esophagitis (K21.9) Active confirmed Problem Constipation (63226827) Constipation, unspecified constipation type (K59.00) Active confirmed Problem Proctitis (0584494) Proctitis (K62.89) Active c onfirmed Problem Chest pain (41219444) Chest pain, unspecified type (R07.9) Active confirmed Problem Gastroesophageal reflux disease (945547981) Gastroesophageal reflux disease, unspecified whether esophagitis present (K21.9) Active confirmed Vital Signs Temperature 97.4 degrees Fahrenheit 03/23/2025 Blood pressure diastolic 01 mm Hg 03/23/2025 Height 63 in 03/23/2025 Blood pressure systolic 001 mm Hg 03/23/2025 Weight 167.8 lbs 03/23/2025 BMI 29.72 kg/m2 03/23/2025 Encounters Encounter Location Date Provider Diagnosis [facility] [address] [place] [address] 03/23/2025 Víctor Soni Jr Gastroesophageal reflux disease, [...] GI ENDOSCOPY 08/17/2021 Next Appt Details Provider Name:Víctorpatsy do Jr, 03/24/2026 10:10:00 AM, [address] [place] [address], [address], [place], [address], Insurance Providers Payer Name Payer Address Payer Phone Subscriber Number Group Number Insured Name Patient Relationship to Insured Coverage Start Date Coverage End Date [facility] [address] [address] [place], [place] [id number] SLOAN FITZPATRICK Self - patient is the insured Medical (General) History Medical History History ICD Code hx of kidney stones Gastroesophageal reflux dise ase, EGD 09/16/21, no Causey's esophagus or H. pylori Elevated cholesterol Atypical chest pain, [facility] Naty king Colonoscopy 02/04/21, mild pr octitis, treated with 8 weeks of mesalamine. Ten-year followup Surgical History Surgery Date(Month/Year) kidney stones Hospitalization History Reason Date(Month/Year)
--- OUTSIDE RECORDS SUMMARY | 2025-07-06 16:25 | XMS_ITS | Clinical Summary ---
Author Organization [facility] Address [address] [place] [address] Phone Care Team Providers Care Senior Professional Services Consultant Name Role Phone Mychal Maldonado Primary Care [...] older (Afluria) 3 years and older 08/19/2014,06/09/2013,07/03/2011 [employer] SARS-CoV-2 COVID-19, mRNA, LNP-S, preservative free 10/27/2020 [...] 12/06/2024 2:12 PM [facility] Potassium 4.0 3.5 - 5.5 [...] [facility] Comment:Calculation based on the Chronic Kidney Disease Epidemiology Collaboration (CKD-EPI) equation refit without adjustment for race. BUN/Creatinine Ratio 18.0 LAB CHEMISTRY METHOD 12/06/2024 2:12 PM [facility] Calcium 9.6 8.5 - 10.5 mg/dL LAB CHEMISTRY METHOD 12/06/2024 2:12 PM [facility] AST (SGOT) 17 10 - 42 unit/L LAB CHEMISTRY METHOD 12/06/2024 2:12 PM EDT [facility] ALT (SGPT) 21 10 - 60 unit/L LAB CHEMISTRY METHOD 12/06/2024 2:12 PM EDT [facility] Alkaline Phosphatase 100 42 - 121 unit/L LAB CHEMISTRY METHOD 12/06/2024 2:12 PM EDT [facility] Total Protein 7.2 6.0 - 8.0 g/dL LAB CHEMISTRY METHOD 12/06/2024 2:12 PM EDT [facility] Albumin 3.8 3.2 - 5.0 g/dL LAB CHEMISTRY METHOD 12/06/2024 2:12 PM EDT [facility] Total Bilirubin 0.5 0.0 - 1.4 mg/dL LAB CHEMISTRY METHOD 12/06/2024 2:12 PM EDT [facility] Blood Venous blood specimen / Unknown Venipuncture / Unknown 12/06/2024 1:27 PM EDT 12/06/2024 1:39 PM EDT Nani Gabriel DO LAB BLOOD ORDERABLES Suzan l Result [facility] [address] [place] [address], [place] [phone] * MG Mammo Digital Screening w Yomi bilat (11/26/2024 11:49 AM EDT) Anatomical Region Laterality Modality Breast Bilateral Mammography 11/26/2024 4:00 PM EDT Impressions 11/26/2024 4:12 PM EDT No evidence of breast malignancy. BI-RADS CATEGORY: 1 - NEGATIVE RECOMMENDATION: Screening bilateral mammogram is recommended in 1 year. Mammo Location: [facility], [address], [place], [address], . -------- FINAL REPORT -------- Dictated By: Veronica Akhtar Dictated Date: 11/26/2024 16:00 ET Assigned Physician: Veronica Akhtar Reviewed and Electronically Signed By: Veronica Akhtar Signed Date: 11/26/2024 16:12 ET Workstation ID: [id number] Transcribed By: Self Edit Transcribed Date: 11/26/2024 [...] year. Mammo Location: [facility], [address] [place] [address], [id number], . -------- FINAL REPORT -------- Dictated By: Veronica Akhtar Dictated Date: 11/26/2024 16:00 ET Assigned Physician: Veronica Akhtar Reviewed and Electronically Signed By: Veronica Akhtar Signed Date: 11/26/2024 16:12 ET Workstation ID: [id number] Transcribed By: Self Edit Transcribed Date: 11/26/2024 16:00 ET Odette Rubi CNM IMG BI PROCEDURES Final Resul t * HPV with reflex genotype (10/17/2024 10:04 AM EST) Pathologist [facility] HPV Negative Negative LAB MICROBIOLOGY METHOD 10/20/2024 3:10 PM EST [facility] Brushing/Spatula Cervix uteri structure / Unknown 10/17/2024 10:04 AM EST 10/20/2024 6:05 AM EST Odette Rubi CNM LAB MOLECULAR DIAGNOSTICS ORD ERABLES Final Result [facility] [address] [place] [address], * Hepatitis C Screening (03/26/2018) Pathologist [facility] Hepatitis C Screening Abstracted Historical Provider HEALTH MAINTENANCE Final Result * (ABNORMAL) Lipid panel (10/09/2013) Pathologist [facility] LDL/HDL Ratio 3 0 - 4 Triglycerides 248(A) 0 - 150 mg/dL Cholesterol 187 0 - 200 mg/dL HDL 65 >=40 mg/dL LDL Cholesterol 73 0 - 100 mg/dL Blood Venous blood specimen / Unknown Historical Provider LAB BLOOD ORDERABLES Suzan l Result from Last 3 Months or Most Recently Relevant to Health Maintenance Insurance [facility] [employer] Care Teams Senior Professional Services Consultant Relationship Specialty Start Date End Date Mychal Maldonado PA PCP - General Physician Foreign Service Officer 12/06/24
== END 2025-07-06 13:50 | disposition home or self-care (01) ==
LOC: HO.HMCH 12:55
PROVIDERS: PCP Physician Assistant; Visit Provider Physician Assistant
DX: Z23 Encounter for immunization (principal); F41.1 Generalized anxiety disorder

== ENCOUNTER → 2025-07-06 12:54 | Outpatient (BNVA) | payer OTHER, SELFPAY | PROVIDERS: PCP Physician Assistant; Visit Provider Physician Assistant | DX: F41.1 Generalized anxiety disorder (principal); G47.00 Insomnia, unspecified; E66.811 Obesity, class 1; Z23 Encounter for immunization; Z79.899 Other long term (current) drug therapy; Z68.29 Body mass index [BMI] 29.0-29.9, adult | CPT/HCPCS: 90471; 90677; 96127; 99212 ==